=== PATIENT | male | born 1940 | race Caucasian/White ===

== ENCOUNTER 2016-11-14 16:42 | Emergency (ER) | payer MEDICARE, BC ==
[~2016-11-14] VITALS: Ht 188 cm; Wt 129.3 kg
--- NOTE | 2016-11-14 17:00 | NUR ---
PT SEND BY PMD FOR SOB, HYPOXIA. ALERT ORIENTED AMBULATORY. DENIES ANY PAIN. PLACED ON MONITOR. VSS.
--- NOTE | 2016-11-14 17:20 | NUR ---
BLOOD SAMPLE COLLECTED BY LAB
[2016-11-14 17:29] LABS: BASOPHILS # (AUTO) 0.1 /CMM (0.0-0.2); BASOPHILS % (AUTO) 0.7 % (0.0-2.0); EOSINOPHILS # (AUTO) 1.5 /CMM (0.0-0.7); EOSINOPHILS % (AUTO) 14.3 % (0.0-6.0); HEMATOCRIT 43 % (39-51); HEMOGLOBIN 13.8 g/dL (13.5-17.5); LYMPHOCYTES # (AUTO) 2.7 /CMM (0.8-4.8); LYMPHOCYTES % (AUTO) 25.7 % (20.0-44.0); MEAN CORPUSCULAR HEMOGLOBIN 30 PG (26.0-33.0); MEAN CORPUSCULAR HGB CONC 32 g/dl (31.0-36.0); MEAN CORPUSCULAR VOLUME 93 fL (80-96); MONOCYTES # (AUTO) 0.9 /CMM (0.1-1.30); MONOCYTES % (AUTO) 8.2 % (2.0-12.0); NEUTROPHILS # (AUTO) 5.5 /CMM (1.8-8.9); NEUTROPHILS % (AUTO) 51.1 % (43.0-81.0); PLATELET COUNT (AUTO) 241 /CMM (150-450); RDW COEFFICIENT OF VARIATION 13.1 (11.5-15.0); RED BLOOD CELL COUNT(AUTO) 4.64 MIL/uL (4.5-6.0); WHITE BLOOD COUNT (AUTO) 10.7 K/uL (4.3-11.0)
--- NOTE | 2016-11-14 17:30 | NUR ---
RFA #20 IV ACCESS
[2016-11-14 17:35] LABS: CALCIUM, SERUM 8.3 mg/dL (8.5-10.1); CARBON DIOXIDE 31 mmol/L (21-32); CHLORIDE 109 mmol/L (98-107); CREATININE 1.1 mg/dL (0.6-1.3); GLUCOSE 107 mg/dL (74-106); POTASSIUM 4.2 mmol/L (3.5-5.1); SODIUM SERUM 144 mmol/L (136-145); UREA NITROGEN, BLOOD 19 mg/dL (7-18)
[2016-11-14] MEDS ORDERED: methylPREDNISolone SOD SUCC 125 MG/2ML VIAL ONE (17:37)
--- NOTE | 2016-11-14 17:40 | NUR ---
RT AT BEDSIDE GIVEN BREATHING TX
[2016-11-14] MEDS ORDERED: ALBUTEROL FS 2.5 MG/3 ML VIAL.NEB ONE ×2 (17:41→19:26)
[2016-11-14] MEDS ORDERED: IPRATROPIUM NEB FS 0.5 MG/2.5 ML AMPUL.NEB ONE (17:41)
[2016-11-14 17:45] LABS: TROPONIN I < 0.017 ng/mL (0.00-0.056)
[2016-11-14] MEDS: IPRATROPIUM NEB FS 0.5 MG/2.5 ML AMPUL.NEB NEB ONE (17:45)
[2016-11-14] MEDS: ALBUTEROL FS 2.5 MG/3 ML VIAL.NEB CONTNEB ONE ×2 (17:45→19:26)
[2016-11-14] MEDS: methylPREDNISolone SOD SUCC 125 MG/2ML VIAL IV ONE (18:01)
[2016-11-14] MEDS ORDERED: ASPI-991 PO (18:41)
[2016-11-14] MEDS ORDERED: AMLO1CAP9 PO (18:41)
[2016-11-14] MEDS ORDERED: ATOR40TA PO (18:41)
[2016-11-14] MEDS ORDERED: INSU100I19 SQ (18:41)
[2016-11-14] MEDS ORDERED: METO25TA3 PO (18:41)
[2016-11-14] MEDS ORDERED: ALLO100T PO (18:41)
[2016-11-14] MEDS ORDERED: INSU100V11 SQ (18:41)
[2016-11-14] MEDS ORDERED: METF500T4 PO (18:41)
--- NOTE | 2016-11-14 19:11 | NUR ---
GAVE REPORT TO PROCESS PLANT OPERATOR MAE
--- NOTE | 2016-11-14 19:15 | NUR ---
Received patient in bed aaox4, reporting feeling relieved from sob. Breathing even and unlabored. Saturating 91-94% on room air. Encouraged deep breathing exercises. Will continue to monitor.
--- NOTE | 2016-11-14 19:26 | NUR ---
Breathing treatment given by RT.
--- NOTE | 2016-11-14 20:43 | NUR ---
IV removed. Catheter intact and site benign. Pressure and 4x4 applied to site. No bleeding noted. Patient discharged to home in stable condition. Written and verbal after care instructions given. Patient verbalizes understanding of instruction. Patient is ambulatory with steady gait.
[2016-11-14 20:55] VITALS: BP 111/44
== END 2016-11-14 20:43 | disposition home or self-care (01) ==
LOC: ER 16:44
DX: J44.1 Chronic obstructive pulmonary disease with (acute) exacerbation (principal); E11.9 Type 2 diabetes mellitus without complications; E78.5 Hyperlipidemia, unspecified; I25.10 Atherosclerotic heart disease of native coronary artery without angina pectoris; Z88.0 Allergy status to penicillin
CPT/HCPCS: 36415; 71010; 80048; 84484; 85025; 93005; 94640 ×3; 99285; J2930

== ENCOUNTER 2022-05-24 09:46 | Outpatient (CLI) | payer MEDICARE, BC ==
[~2022-05-24 09:46] MED LIST: ALLO100T PO; AMLO-102 PO; ASPI-1420 PO; ATOR40TA PO; INSU100I19 SQ; INSU100V11 SQ; METF-440 PO; METO25TA3 PO
== END 2022-05-24 23:59 | disposition home or self-care (01) ==
LOC: CT 09:46
PROVIDERS: ATTEND Internal Medicine
DX: J98.11 Atelectasis (principal); J90 Pleural effusion, not elsewhere classified; N28.1 Cyst of kidney, acquired; I70.0 Atherosclerosis of aorta; R06.02 Shortness of breath
CPT/HCPCS: 71250-TC

== ENCOUNTER 2022-09-30 01:24 | Inpatient (IN) | payer MEDICARE, BC ==
[~2022-09-30] VITALS: Ht 188 cm; Wt 113.9 kg
[2022-09-30] VITALS (11 sets, daily range): BP systolic 108–125; BP diastolic 40–68
[2022-09-30] MEDS: IV NS 0.9% 1,000 ML IV SCH (03:59)
[2022-09-30] MEDS ORDERED: D5W IV ONE (04:00)
[2022-09-30] MEDS ORDERED: MAGNESIUM HYDROXIDE 30 ML UDC PO PRN (04:00)
[2022-09-30] MEDS ORDERED: VANCOMYCIN IV ONE (04:00)
[2022-09-30] MEDS ORDERED: ACETAMINOPHEN 325 MG TABLET PO PRN (04:00)
[2022-09-30] MEDS ORDERED: ONDANSETRON HCL/PF 4 MG/2 ML VIAL IV PRN (04:00)
[2022-09-30] MEDS ORDERED: PIPERACILLIN /TAZOBACTAM 3.375 G in IV D5W 50 ML IV SCH (04:30)
[2022-09-30] MEDS ORDERED: VANCOMYCIN 1 GM VIAL ONE (04:41)
[2022-09-30 06:16] LABS: BASOPHILS % (AUTO) 0.3 % (0.0-2.0); EOSINOPHILS % (AUTO) 0.1 % (0.0-6.0); HEMATOCRIT 28 % (39-51); HEMOGLOBIN 8.8 g/dL (13.5-17.5); LYMPHOCYTES # (AUTO) 0.8 K/uL (0.8-4.8); LYMPHOCYTES % (AUTO) 6.5 % (20.0-44.0); MEAN CORPUSCULAR HGB CONC 32 g/dl (31.0-36.0); MEAN CORPUSCULAR VOLUME 98 fL (80-96); MONOCYTES # (AUTO) 1.2 K/uL (0.1-1.30); MONOCYTES % (AUTO) 9.4 % (2.0-12.0); NEUTROPHILS # (AUTO) 10.9 K/uL (1.8-8.9); NEUTROPHILS % (AUTO) 83.7 % (43.0-81.0); PLATELET COUNT (AUTO) 641 K/uL (150-450); RED BLOOD CELL COUNT(AUTO) 2.83 MIL/uL (4.5-6.0)
[2022-09-30 06:36] LABS: IRON, SERUM 143 ug/dl (50-175); TOTAL IRON BINDING CAPACITY 176 ug/dl (250-450)
[2022-09-30] MEDS ORDERED: FERR325T24 PO (09:35)
[2022-09-30] MEDS ORDERED: EMPA1TAB9 PO (09:35)
[2022-09-30] MEDS ORDERED: FLUT1BLS13 IH (09:35)
[2022-09-30] MEDS: DOCUSATE SODIUM 100 MG CAPSULE PO SCH ×2 (09:57→21:00)
[2022-09-30] MEDS: methylPREDNISolone SOD SUCC 125 MG/2ML VIAL IV SCH ×3 (10:18→20:22)
[2022-09-30 11:27] LABS: CALCIUM, SERUM 8.9 mg/dL (8.5-10.1); CARBON DIOXIDE 22 mmol/L (21-32); CHLORIDE 94 mmol/L (98-107); CREATININE 2.7 mg/dL (0.6-1.3); GLUCOSE 283 mg/dL (74-106); MAGNESIUM 2.6 mg/dL (1.8-2.4); SODIUM SERUM 127 mmol/L (136-145)
[2022-09-30 11:32] LABS: POTASSIUM 7.1 mmol/L (3.5-5.1)
[2022-09-30 11:33] LABS: PHOSPHORUS 10.9 mg/dL (2.5-4.9); UREA NITROGEN, BLOOD 85 mg/dL (7-18)
[2022-09-30] MEDS ORDERED: SODIUM POLYSTYRENE SULFONATE 15 G/60 ML BOTTLE PO ONE ×2 (12:00→17:30)
[2022-09-30] MEDS ORDERED: DEXTROSE 50%-WATER 50 ML DISP.SYRIN IV PRN (12:00)
[2022-09-30] MEDS ORDERED: SODIUM POLYSTYRENE SULFONATE 15 G/60 ML BOTTLE RC ONE (12:00)
[2022-09-30] MEDS: BREO IH SCH (12:04)
[2022-09-30] MEDS: BLOOD SUGAR DIAGNOSTIC 1 EACH STRIP IN SCH ×3 (12:41→22:17)
[2022-09-30] MEDS: INSULIN REGULAR, HUMAN 100 UNIT/ML 3 ML VIAL SQ PRN ×2 (12:45→22:49)
[2022-09-30] MEDS: CEFTRIAXONE 1 G in IV D5W 50 ML IV SCH (12:50)
[2022-09-30] MEDS ORDERED: FURO-144 PO (16:21)
[2022-09-30] MEDS ORDERED: INSU100V10 SQ (16:21)
[2022-09-30] MEDS ORDERED: PANT40TA49 PO (16:21)
[2022-09-30] MEDS ORDERED: CYAN-51 PO (16:21)
[2022-09-30] MEDS ORDERED: LEVO75TA7 PO (16:21)
[2022-09-30 16:22] LABS: CALCIUM, SERUM 8.7 mg/dL (8.5-10.1); CARBON DIOXIDE 24 mmol/L (21-32); CHLORIDE 96 mmol/L (98-107); CREATININE 3.1 mg/dL (0.6-1.3); GLUCOSE 269 mg/dL (74-106); SODIUM SERUM 129 mmol/L (136-145)
[2022-09-30 16:55] LABS: POTASSIUM 7.5 mmol/L (3.5-5.1); UREA NITROGEN, BLOOD 93 mg/dL (7-18)
[2022-09-30] MEDS: HEPARIN SODIUM, PORCINE 5000 UNITS/1 ML VIAL SQ SCH (17:00)
[2022-09-30] MEDS ORDERED: INSULIN REGULAR, HUMAN 100 UNIT/ML 10 ML VIAL IV ONE (17:30)
[2022-09-30] MEDS ORDERED: DEXTROSE 50%-WATER 50 ML DISP.SYRIN IVP ONE (17:30)
[2022-09-30] MEDS: ALLOPURINOL 100 MG TABLET PO SCH (17:32)
[2022-09-30] MEDS: FERROUS SULFATE (325 MG) 325 MG/TAB TABLET PO SCH (17:32)
[2022-09-30] MEDS: CALCIUM ACETATE 667 MG CAP/TAB PO SCH (18:00)
[2022-09-30] MEDS: ATORVASTATIN 40 MG TABLET PO SCH (21:31)
[2022-09-30] MEDS: EPOETIN ALFA-EPBX 4,000 UNIT/ML VIAL IV SCH (23:50)
[2022-10-01] VITALS (50 sets, daily range): BP systolic 91–128; BP diastolic 45–62
[2022-10-01] MEDS: methylPREDNISolone SOD SUCC 125 MG/2ML VIAL IV SCH ×3 (05:10→21:06)
[2022-10-01] MEDS: BLOOD SUGAR DIAGNOSTIC 1 EACH STRIP IN SCH ×4 (07:45→22:02)
[2022-10-01] MEDS: CALCIUM ACETATE 667 MG CAP/TAB PO SCH ×3 (08:00→17:52)
[2022-10-01] MEDS: ALLOPURINOL 100 MG TABLET PO SCH ×2 (08:05→17:52)
[2022-10-01] MEDS: FERROUS SULFATE (325 MG) 325 MG/TAB TABLET PO SCH ×2 (08:05→17:52)
[2022-10-01] MEDS: METOPROLOL SUCCINATE 25 MG TAB.SR.24H PO SCH (08:05)
[2022-10-01] MEDS: ASPIRIN EC 81 MG TABLET.DR PO SCH (08:05)
[2022-10-01] MEDS: DOCUSATE SODIUM 100 MG CAPSULE PO SCH ×2 (08:05→21:06)
[2022-10-01] MEDS: BREO IH SCH (08:06)
[2022-10-01] MEDS: INSULIN REGULAR, HUMAN 100 UNIT/ML 3 ML VIAL SQ PRN ×3 (08:46→22:04)
[2022-10-01 09:19] LABS: CALCIUM, SERUM 8.4 mg/dL (8.5-10.1); CARBON DIOXIDE 25 mmol/L (21-32); CHLORIDE 96 mmol/L (98-107); CREATININE 3.1 mg/dL (0.6-1.3); GLUCOSE 274 mg/dL (74-106); POTASSIUM 5.8 mmol/L (3.5-5.1); SODIUM SERUM 130 mmol/L (136-145); UREA NITROGEN, BLOOD 63 mg/dL (7-18)
[2022-10-01 09:34] LABS: MAGNESIUM 2.5 mg/dL (1.8-2.4)
[2022-10-01 09:47] LABS: PHOSPHORUS 10.3 mg/dL (2.5-4.9)
[2022-10-01] MEDS: HEPARIN SODIUM, PORCINE 5000 UNITS/1 ML VIAL SQ SCH ×2 (11:00→17:54)
[2022-10-01 11:20] LABS: LYMPHOCYTES % (AUTO) 2.3 % (20.0-44.0); MONOCYTES # (AUTO) 0.6 K/uL (0.1-1.30)
[2022-10-01 11:24] LABS: BASOPHILS # (AUTO) 0.1 K/uL (0.0-0.2); BASOPHILS % (AUTO) 0.4 % (0.0-2.0); HEMATOCRIT 28 % (39-51); HEMOGLOBIN 8.8 g/dL (13.5-17.5); LYMPHOCYTES # (AUTO) 0.5 K/uL (0.8-4.8); MEAN CORPUSCULAR HGB CONC 31 g/dl (31.0-36.0); MEAN CORPUSCULAR VOLUME 99 fL (80-96); MONOCYTES % (AUTO) 2.6 % (2.0-12.0); NEUTROPHILS # (AUTO) 22.2 K/uL (1.8-8.9); NEUTROPHILS % (AUTO) 94.7 % (43.0-81.0); PLATELET COUNT (AUTO) 556 K/uL (150-450); RED BLOOD CELL COUNT(AUTO) 2.87 MIL/uL (4.5-6.0); WHITE BLOOD COUNT (AUTO) 23.4 K/uL (4.3-11.0)
[2022-10-01] MEDS: CEFTRIAXONE 1 G in IV D5W 50 ML IV SCH (11:46)
[2022-10-01 12:00] LABS: IRON, SERUM 53 ug/dl (50-175); TOTAL IRON BINDING CAPACITY 192 ug/dl (250-450)
[2022-10-01] MEDS: IV NS 0.9% 1,000 ML IV SCH (12:13)
[2022-10-01] MEDS ORDERED: GLUCERNA 1.5 1,000 ML BOTTLE NG SCH (15:30)
[2022-10-01 16:23] LABS: MONOCYTES % (MANUAL) 2 % (0-11.0); NEUTROPHILS % (MANUAL) 98 (42-76)
[2022-10-01] MEDS ORDERED: VANCOMYCIN 1 GM in IV D5W 250ml IV SCH (17:00)
[2022-10-01] MEDS: PIPERACILLIN /TAZOBACTAM 3.375 G in IV D5W 50 ML IV SCH ×2 (17:13→21:02)
[2022-10-01] MEDS: ATORVASTATIN 40 MG TABLET PO SCH (21:06)
[2022-10-01] MEDS: VANCOMYCIN POST DIALYSIS 500MG IV PRN ×2 (21:47)
[2022-10-02] VITALS (24 sets, daily range): BP systolic 89–113; BP diastolic 44–67
[2022-10-02 04:53] LABS: HEMATOCRIT 23 % (39-51); HEMOGLOBIN 7.2 g/dL (13.5-17.5); LYMPHOCYTES # (AUTO) 0.3 K/uL (0.8-4.8); LYMPHOCYTES % (AUTO) 1.5 % (20.0-44.0); MEAN CORPUSCULAR HGB CONC 32 g/dl (31.0-36.0); MEAN CORPUSCULAR VOLUME 96 fL (80-96); MONOCYTES # (AUTO) 0.7 K/uL (0.1-1.30); MONOCYTES % (AUTO) 3.3 % (2.0-12.0); NEUTROPHILS % (AUTO) 95.2 % (43.0-81.0); PLATELET COUNT (AUTO) 460 K/uL (150-450); WHITE BLOOD COUNT (AUTO) 19.9 K/uL (4.3-11.0)
[2022-10-02] MEDS: IV NS 0.9% 1,000 ML IV SCH (05:07)
[2022-10-02] MEDS: PIPERACILLIN /TAZOBACTAM 3.375 G in IV D5W 50 ML IV SCH ×3 (05:07→21:02)
[2022-10-02] MEDS: methylPREDNISolone SOD SUCC 125 MG/2ML VIAL IV SCH ×3 (05:07→17:20)
[2022-10-02 05:16] LABS: CALCIUM, SERUM 7.7 mg/dL (8.5-10.1); CARBON DIOXIDE 30 mmol/L (21-32); CHLORIDE 97 mmol/L (98-107); CREATININE 3.4 mg/dL (0.6-1.3); GLUCOSE 269 mg/dL (74-106); MAGNESIUM 2.3 mg/dL (1.8-2.4); POTASSIUM 4.7 mmol/L (3.5-5.1); SODIUM SERUM 133 mmol/L (136-145); UREA NITROGEN, BLOOD 58 mg/dL (7-18)
[2022-10-02 05:17] LABS: PHOSPHORUS 8.7 mg/dL (2.5-4.9)
[2022-10-02] MEDS: CALCIUM ACETATE 667 MG CAP/TAB PO SCH ×4 (08:00→17:19)
[2022-10-02] MEDS: METOPROLOL SUCCINATE 25 MG TAB.SR.24H PO SCH (08:10)
[2022-10-02] MEDS: BREO IH SCH (08:11)
[2022-10-02] MEDS: FERROUS SULFATE (325 MG) 325 MG/TAB TABLET PO SCH ×2 (08:11→17:19)
[2022-10-02] MEDS: DOCUSATE SODIUM 100 MG CAPSULE PO SCH ×2 (08:11→20:57)
[2022-10-02] MEDS: ALLOPURINOL 100 MG TABLET PO SCH ×2 (08:11→17:19)
[2022-10-02] MEDS: ASPIRIN EC 81 MG TABLET.DR PO SCH (08:12)
[2022-10-02] MEDS: HEPARIN SODIUM, PORCINE 5000 UNITS/1 ML VIAL SQ SCH ×2 (08:12→16:59)
[2022-10-02] MEDS: BLOOD SUGAR DIAGNOSTIC 1 EACH STRIP IN SCH ×3 (11:28→23:46)
[2022-10-02] MEDS: INSULIN REGULAR, HUMAN 100 UNIT/ML 3 ML VIAL SQ PRN ×3 (11:37→23:48)
[2022-10-02 16:17] LABS: LYMPHOCYTES % (MANUAL) 3 % (16-48); MONOCYTES % (MANUAL) 2 % (0-11.0); NEUTROPHILS % (MANUAL) 95 (42-76)
[2022-10-02] MEDS: EPOETIN ALFA-EPBX 4,000 UNIT/ML VIAL IV SCH (17:41)
[2022-10-02] MEDS ORDERED: EPOETIN ALFA-EPBX 4,000 UNIT/ML VIAL SQ ONE (18:00)
[2022-10-02] MEDS: FOLIC ACID 1 MG TABLET GT SCH (20:57)
[2022-10-02] MEDS: CYANOCOBALAMIN 500 MCG TABLET GT SCH (20:57)
[2022-10-02] MEDS: THIAMINE HCL 100 MG TABLET GT SCH (20:57)
[2022-10-02] MEDS: ATORVASTATIN 40 MG TABLET PO SCH (21:15)
[2022-10-03] VITALS (25 sets, daily range): BP systolic 90–134; BP diastolic 42–85
[2022-10-03] MEDS: IV NS 0.9% 1,000 ML IV SCH (03:55)
[2022-10-03 04:14] LABS: LYMPHOCYTES # (AUTO) 0.5 K/uL (0.8-4.8); LYMPHOCYTES % (AUTO) 2.8 % (20.0-44.0); MEAN CORPUSCULAR HGB CONC 32 g/dl (31.0-36.0); MEAN CORPUSCULAR VOLUME 95 fL (80-96); MONOCYTES # (AUTO) 0.8 K/uL (0.1-1.30); MONOCYTES % (AUTO) 4.7 % (2.0-12.0); NEUTROPHILS % (AUTO) 92.5 % (43.0-81.0); PLATELET COUNT (AUTO) 382 K/uL (150-450); RED BLOOD CELL COUNT(AUTO) 2.11 MIL/uL (4.5-6.0); WHITE BLOOD COUNT (AUTO) 16.3 K/uL (4.3-11.0)
[2022-10-03 04:24] LABS: HEMOGLOBIN 6.3 g/dL (13.5-17.5)
[2022-10-03 04:26] LABS: HEMATOCRIT 20 % (39-51)
[2022-10-03 04:37] LABS: CALCIUM, SERUM 7.3 mg/dL (8.5-10.1); CARBON DIOXIDE 27 mmol/L (21-32); CHLORIDE 98 mmol/L (98-107); CREATININE 5.2 mg/dL (0.6-1.3); GLUCOSE 291 mg/dL (74-106); MAGNESIUM 2.4 mg/dL (1.8-2.4); POTASSIUM 3.9 mmol/L (3.5-5.1); SODIUM SERUM 136 mmol/L (136-145)
[2022-10-03 04:43] LABS: PHOSPHORUS 8.1 mg/dL (2.5-4.9); UREA NITROGEN, BLOOD 94 mg/dL (7-18)
[2022-10-03] MEDS: PIPERACILLIN /TAZOBACTAM 3.375 G in IV D5W 50 ML IV SCH ×3 (04:46→21:02)
[2022-10-03 04:50] LABS: SERUM AMMONIA 28 umol/L (11-32)
[2022-10-03] MEDS: BLOOD SUGAR DIAGNOSTIC 1 EACH STRIP IN SCH ×4 (06:04→23:56)
[2022-10-03] MEDS: INSULIN REGULAR, HUMAN 100 UNIT/ML 3 ML VIAL SQ PRN ×4 (06:06→23:57)
[2022-10-03] MEDS: CALCIUM ACETATE 667 MG CAP/TAB PO SCH ×6 (07:25→17:13)
[2022-10-03] MEDS: ASPIRIN EC 81 MG TABLET.DR PO SCH (08:41)
[2022-10-03] MEDS: HEPARIN SODIUM, PORCINE 5000 UNITS/1 ML VIAL SQ SCH ×2 (08:41→21:05)
[2022-10-03] MEDS: METOPROLOL SUCCINATE 25 MG TAB.SR.24H PO SCH (08:41)
[2022-10-03] MEDS: DOCUSATE SODIUM 100 MG CAPSULE PO SCH ×2 (08:41→21:00)
[2022-10-03] MEDS: FOLIC ACID 1 MG TABLET GT SCH ×2 (08:48→17:13)
[2022-10-03] MEDS: THIAMINE HCL 100 MG TABLET GT SCH ×2 (08:48→17:12)
[2022-10-03] MEDS: methylPREDNISolone SOD SUCC 125 MG/2ML VIAL IV SCH ×2 (08:48→17:12)
[2022-10-03] MEDS: ALLOPURINOL 100 MG TABLET PO SCH ×2 (08:49→17:13)
[2022-10-03] MEDS: BREO IH SCH (08:53)
[2022-10-03] MEDS: CYANOCOBALAMIN 500 MCG TABLET GT SCH ×2 (08:55→17:12)
[2022-10-03] MEDS: SOD FERRIC GLUC 125 MG in IV NS 0.9% 100 ML IV SCH (14:25)
[2022-10-03 15:59] LABS: LYMPHOCYTES % (MANUAL) 2 % (16-48); MONOCYTES % (MANUAL) 1 % (0-11.0); NEUTROPHILS % (MANUAL) 97 (42-76)
[2022-10-03 16:22] LABS: OCCULT BLOOD STOOL NEGATIVE (NEGATIVE)
[2022-10-03] MEDS: VANCOMYCIN POST DIALYSIS 500MG IV PRN ×2 (20:00)
[2022-10-03] MEDS: IV NS 0.9% 250 ML IV PRN (20:09)
[2022-10-03] MEDS: ATORVASTATIN 40 MG TABLET PO SCH (21:17)
[2022-10-04] VITALS (33 sets, daily range): BP systolic 97–151; BP diastolic 43–80
[2022-10-04] MEDS: IV NS 0.9% 1,000 ML IV SCH (04:03)
[2022-10-04 04:47] LABS: BASOPHILS % (AUTO) 0.2 % (0.0-2.0); EOSINOPHILS % (AUTO) 0.6 % (0.0-6.0); LYMPHOCYTES # (AUTO) 0.6 K/uL (0.8-4.8); MEAN CORPUSCULAR HGB CONC 32 g/dl (31.0-36.0); MEAN CORPUSCULAR VOLUME 93 fL (80-96); MONOCYTES # (AUTO) 0.8 K/uL (0.1-1.30); MONOCYTES % (AUTO) 5.2 % (2.0-12.0); NEUTROPHILS # (AUTO) 13.8 K/uL (1.8-8.9); PLATELET COUNT (AUTO) 357 K/uL (150-450); RED BLOOD CELL COUNT(AUTO) 2.15 MIL/uL (4.5-6.0); WHITE BLOOD COUNT (AUTO) 15.3 K/uL (4.3-11.0)
[2022-10-04 05:05] LABS: SERUM AMMONIA 20 umol/L (11-32)
[2022-10-04 05:09] LABS: CALCIUM, SERUM 7.9 mg/dL (8.5-10.1); CARBON DIOXIDE 28 mmol/L (21-32); CHLORIDE 98 mmol/L (98-107); CREATININE 4.7 mg/dL (0.6-1.3); MAGNESIUM 2.4 mg/dL (1.8-2.4); PHOSPHORUS 6.1 mg/dL (2.5-4.9); POTASSIUM 4.2 mmol/L (3.5-5.1); SODIUM SERUM 137 mmol/L (136-145)
[2022-10-04 05:28] LABS: HEMATOCRIT 20 % (39-51); HEMOGLOBIN 6.5 g/dL (13.5-17.5)
[2022-10-04 05:29] LABS: GLUCOSE 379 mg/dL (74-106); UREA NITROGEN, BLOOD 84 mg/dL (7-18)
[2022-10-04] MEDS: PIPERACILLIN /TAZOBACTAM 3.375 G in IV D5W 50 ML IV SCH ×2 (05:37→12:58)
[2022-10-04] MEDS: BLOOD SUGAR DIAGNOSTIC 1 EACH STRIP IN SCH ×3 (05:38→18:39)
[2022-10-04] MEDS: INSULIN REGULAR, HUMAN 100 UNIT/ML 3 ML VIAL SQ PRN ×3 (05:39→18:41)
[2022-10-04] MEDS: DOCUSATE SODIUM 100 MG CAPSULE PO SCH ×2 (08:56→20:28)
[2022-10-04] MEDS: METOPROLOL SUCCINATE 25 MG TAB.SR.24H PO SCH (08:56)
[2022-10-04] MEDS: methylPREDNISolone SOD SUCC 125 MG/2ML VIAL IV SCH ×2 (09:01→16:16)
[2022-10-04] MEDS: HEPARIN SODIUM, PORCINE 5000 UNITS/1 ML VIAL SQ SCH ×2 (09:01→21:33)
[2022-10-04] MEDS: THIAMINE HCL 100 MG TABLET GT SCH ×2 (09:02→16:15)
[2022-10-04] MEDS: ASPIRIN EC 81 MG TABLET.DR PO SCH (09:02)
[2022-10-04] MEDS: CYANOCOBALAMIN 500 MCG TABLET GT SCH ×2 (09:02→16:15)
[2022-10-04] MEDS: CALCIUM ACETATE 667 MG CAP/TAB PO SCH (09:02)
[2022-10-04] MEDS: ALLOPURINOL 100 MG TABLET PO SCH ×2 (09:02→16:15)
[2022-10-04] MEDS: FOLIC ACID 1 MG TABLET GT SCH ×2 (09:02→16:15)
[2022-10-04] MEDS: BREO IH SCH (09:03)
[2022-10-04] MEDS: NEPRO 1,000 ML BOTTLE NG PRN (12:15)
[2022-10-04 12:44] LABS: BAND % (MANUAL) 1 % (0.0-5.0); LYMPHOCYTES % (MANUAL) 6 % (16-48); MONOCYTES % (MANUAL) 3 % (0-11.0); NEUTROPHILS % (MANUAL) 90 (42-76)
[2022-10-04 14:30] LABS: BASOPHILS % (AUTO) 0.2 % (0.0-2.0); EOSINOPHILS % (AUTO) 0.1 % (0.0-6.0); HEMATOCRIT 28 % (39-51); HEMOGLOBIN 9.1 g/dL (13.5-17.5); LYMPHOCYTES # (AUTO) 0.4 K/uL (0.8-4.8); LYMPHOCYTES % (AUTO) 2.1 % (20.0-44.0); MEAN CORPUSCULAR HGB CONC 32 g/dl (31.0-36.0); MEAN CORPUSCULAR VOLUME 90 fL (80-96); MONOCYTES # (AUTO) 0.5 K/uL (0.1-1.30); MONOCYTES % (AUTO) 3.1 % (2.0-12.0); NEUTROPHILS # (AUTO) 15.9 K/uL (1.8-8.9); NEUTROPHILS % (AUTO) 94.5 % (43.0-81.0); PLATELET COUNT (AUTO) 367 K/uL (150-450); WHITE BLOOD COUNT (AUTO) 16.8 K/uL (4.3-11.0)
[2022-10-04] MEDS: SOD FERRIC GLUC 125 MG in IV NS 0.9% 100 ML IV SCH (14:39)
[2022-10-04] MEDS: EPOETIN ALFA-EPBX 4,000 UNIT/ML VIAL IV SCH (18:43)
[2022-10-04] MEDS: VANCOMYCIN POST DIALYSIS 500MG IV PRN ×2 (18:50)
[2022-10-04 19:35] LABS: BAND % (MANUAL) 1 % (0.0-5.0); LYMPHOCYTES % (MANUAL) 5 % (16-48); NEUTROPHILS % (MANUAL) 94 (42-76)
[2022-10-04] MEDS: PIPERACILLIN /TAZOBACTAM 2.25 G in IV D5W 50 ML IV SCH (20:27)
[2022-10-04] MEDS: ATORVASTATIN 40 MG TABLET PO SCH (21:13)
[2022-10-05] VITALS (30 sets, daily range): BP systolic 105–141; BP diastolic 50–79
[2022-10-05] MEDS: BLOOD SUGAR DIAGNOSTIC 1 EACH STRIP IN SCH ×5 (00:13→23:29)
[2022-10-05] MEDS: INSULIN REGULAR, HUMAN 100 UNIT/ML 3 ML VIAL SQ PRN ×5 (00:14→23:32)
[2022-10-05] MEDS: IV NS 0.9% 1,000 ML IV SCH (04:05)
[2022-10-05] MEDS: PIPERACILLIN /TAZOBACTAM 2.25 G in IV D5W 50 ML IV SCH ×3 (04:11→21:50)
[2022-10-05 04:53] LABS: BASOPHILS % (AUTO) 0.3 % (0.0-2.0); EOSINOPHILS % (AUTO) 0.1 % (0.0-6.0); HEMATOCRIT 26 % (39-51); HEMOGLOBIN 8.1 g/dL (13.5-17.5); LYMPHOCYTES # (AUTO) 0.6 K/uL (0.8-4.8); LYMPHOCYTES % (AUTO) 3.9 % (20.0-44.0); MEAN CORPUSCULAR HGB CONC 32 g/dl (31.0-36.0); MEAN CORPUSCULAR VOLUME 92 fL (80-96); MONOCYTES # (AUTO) 0.8 K/uL (0.1-1.30); MONOCYTES % (AUTO) 5.3 % (2.0-12.0); NEUTROPHILS # (AUTO) 14.3 K/uL (1.8-8.9); NEUTROPHILS % (AUTO) 90.4 % (43.0-81.0); PLATELET COUNT (AUTO) 312 K/uL (150-450); RED BLOOD CELL COUNT(AUTO) 2.79 MIL/uL (4.5-6.0); WHITE BLOOD COUNT (AUTO) 15.8 K/uL (4.3-11.0)
[2022-10-05 05:17] LABS: ALANINE AMINOTRANSFERASE 14 U/L (12-78); ALKALINE PHOSPHATASE 121 U/L (46-116); ASPARTATE AMINOTRANSFERASE 18 U/L (15-37); BILIRUBIN,TOTAL 0.7 mg/dL (0.2-1.0); CALCIUM, SERUM 7.2 mg/dL (8.5-10.1); CARBON DIOXIDE 23 mmol/L (21-32); CHLORIDE 107 mmol/L (98-107); CREATININE 3.3 mg/dL (0.6-1.3); MAGNESIUM 2.1 mg/dL (1.8-2.4); PHOSPHORUS 5.5 mg/dL (2.5-4.9); POTASSIUM 3.8 mmol/L (3.5-5.1); SODIUM SERUM 139 mmol/L (136-145); TOTAL PROTEIN, SERUM 4.9 g/dL (6.4-8.2); UREA NITROGEN, BLOOD 60 mg/dL (7-18)
[2022-10-05 05:33] LABS: GLUCOSE 356 mg/dL (74-106)
[2022-10-05] MEDS: NEPRO 1,000 ML BOTTLE NG PRN (07:22)
[2022-10-05] MEDS: DOCUSATE SODIUM 100 MG CAPSULE PO SCH ×2 (08:11→21:00)
[2022-10-05] MEDS: METOPROLOL SUCCINATE 25 MG TAB.SR.24H PO SCH (08:11)
[2022-10-05] MEDS: methylPREDNISolone SOD SUCC 125 MG/2ML VIAL IV SCH ×2 (09:58→16:19)
[2022-10-05] MEDS: BREO IH SCH (09:58)
[2022-10-05] MEDS: HEPARIN SODIUM, PORCINE 5000 UNITS/1 ML VIAL SQ SCH ×2 (09:59→21:55)
[2022-10-05] MEDS: FOLIC ACID 1 MG TABLET GT SCH ×2 (10:00→16:19)
[2022-10-05] MEDS: ASPIRIN EC 81 MG TABLET.DR PO SCH (10:00)
[2022-10-05] MEDS: ALLOPURINOL 100 MG TABLET PO SCH ×2 (10:00→16:19)
[2022-10-05] MEDS: THIAMINE HCL 100 MG TABLET GT SCH ×2 (10:00→16:19)
[2022-10-05] MEDS: CYANOCOBALAMIN 500 MCG TABLET GT SCH ×2 (10:01→16:25)
[2022-10-05] MEDS ORDERED: EPOETIN ALFA (10,000 UNIT) 10,000 UNIT/ML VIAL IV ONE ×2 (13:00→16:00)
[2022-10-05] MEDS: SOD FERRIC GLUC 125 MG in IV NS 0.9% 100 ML IV SCH (14:11)
[2022-10-05] MEDS: VANCOMYCIN POST DIALYSIS 500MG IV PRN ×2 (16:30)
[2022-10-05] MEDS ORDERED: ATORVASTATIN 40 MG TABLET ONE (21:49)
[2022-10-05] MEDS: ATORVASTATIN 40 MG TABLET PO SCH (21:50)
[2022-10-06] VITALS (24 sets, daily range): BP systolic 100–128; BP diastolic 46–64
[2022-10-06] MEDS: IV NS 0.9% 1,000 ML IV PRN (01:48)
[2022-10-06] MEDS: NEPRO 1,000 ML BOTTLE NG PRN (03:14)
[2022-10-06 05:03] LABS: BASOPHILS # (AUTO) 0.1 K/uL (0.0-0.2); BASOPHILS % (AUTO) 0.4 % (0.0-2.0); HEMATOCRIT 33 % (39-51); HEMOGLOBIN 10.4 g/dL (13.5-17.5); LYMPHOCYTES # (AUTO) 0.6 K/uL (0.8-4.8); LYMPHOCYTES % (AUTO) 3.2 % (20.0-44.0); MEAN CORPUSCULAR HGB CONC 32 g/dl (31.0-36.0); MEAN CORPUSCULAR VOLUME 93 fL (80-96); MONOCYTES # (AUTO) 0.6 K/uL (0.1-1.30); MONOCYTES % (AUTO) 3.4 % (2.0-12.0); NEUTROPHILS # (AUTO) 16.7 K/uL (1.8-8.9); PLATELET COUNT (AUTO) 270 K/uL (150-450); RED BLOOD CELL COUNT(AUTO) 3.53 MIL/uL (4.5-6.0); WHITE BLOOD COUNT (AUTO) 17.9 K/uL (4.3-11.0)
[2022-10-06] MEDS: PIPERACILLIN /TAZOBACTAM 2.25 G in IV D5W 50 ML IV SCH ×3 (05:12→21:44)
[2022-10-06 05:31] LABS: CALCIUM, SERUM 8.6 mg/dL (8.5-10.1); CARBON DIOXIDE 28 mmol/L (21-32); CHLORIDE 101 mmol/L (98-107); CREATININE 3.9 mg/dL (0.6-1.3); MAGNESIUM 2.5 mg/dL (1.8-2.4); PHOSPHORUS 7.1 mg/dL (2.5-4.9); POTASSIUM 4.5 mmol/L (3.5-5.1); SODIUM SERUM 135 mmol/L (136-145); UREA NITROGEN, BLOOD 74 mg/dL (7-18)
[2022-10-06 05:41] LABS: GLUCOSE 408 mg/dL (74-106)
[2022-10-06] MEDS ORDERED: DEXTROSE 50%-WATER 50 ML DISP.SYRIN IV PRN ×2 (06:00→11:00)
[2022-10-06] MEDS ORDERED: BLOOD SUGAR DIAGNOSTIC 1 EACH STRIP IN SCH (06:00)
[2022-10-06] MEDS ORDERED: INSULIN REGULAR, HUMAN 100 UNIT/ML 3 ML VIAL SQ PRN (06:00)
[2022-10-06 06:05] LABS: BASOPHILS % (MANUAL) 0 % (0.0-2.0); EOSINOPHILS % (MANUAL) 0 % (0-4); LYMPHOCYTES % (MANUAL) 9 % (16-48); MONOCYTES % (MANUAL) 8 % (0-11.0); NEUTROPHILS % (MANUAL) 83 (42-76)
[2022-10-06] MEDS: ASPIRIN EC 81 MG TABLET.DR PO SCH (08:10)
[2022-10-06] MEDS: methylPREDNISolone SOD SUCC 125 MG/2ML VIAL IV SCH ×2 (08:10→17:22)
[2022-10-06] MEDS: FOLIC ACID 1 MG TABLET GT SCH ×2 (08:10→17:22)
[2022-10-06] MEDS: ALLOPURINOL 100 MG TABLET PO SCH ×2 (08:10→17:22)
[2022-10-06] MEDS: THIAMINE HCL 100 MG TABLET GT SCH ×2 (08:10→17:22)
[2022-10-06] MEDS: CYANOCOBALAMIN 500 MCG TABLET GT SCH ×2 (08:10→17:22)
[2022-10-06] MEDS: DOCUSATE SODIUM 100 MG CAPSULE PO SCH ×2 (08:11→21:02)
[2022-10-06] MEDS: METOPROLOL SUCCINATE 25 MG TAB.SR.24H PO SCH (08:11)
[2022-10-06] MEDS: BREO IH SCH (08:13)
[2022-10-06] MEDS: HEPARIN SODIUM, PORCINE 5000 UNITS/1 ML VIAL SQ SCH ×2 (08:16→21:00)
[2022-10-06] MEDS: BLOOD SUGAR DIAGNOSTIC 1 EACH STRIP IN SCH ×2 (11:20→17:35)
[2022-10-06] MEDS: INSULIN REGULAR, HUMAN 100 UNIT/ML 3 ML VIAL SQ PRN ×2 (11:23→17:29)
[2022-10-06] MEDS: VANCOMYCIN POST DIALYSIS 500MG IV PRN ×2 (11:43)
[2022-10-06] MEDS: FLUCONAZOLE IN NS 100 MG in PREMIX 1 EA IV SCH ×2 (14:41)
[2022-10-06] MEDS: SOD FERRIC GLUC 125 MG in IV NS 0.9% 100 ML IV SCH (14:42)
[2022-10-06 20:46] LABS: BASOPHILS # (AUTO) 0.1 K/uL (0.0-0.2); BASOPHILS % (AUTO) 0.3 % (0.0-2.0); EOSINOPHILS % (AUTO) 0.1 % (0.0-6.0); HEMATOCRIT 31 % (39-51); HEMOGLOBIN 9.7 g/dL (13.5-17.5); LYMPHOCYTES # (AUTO) 0.5 K/uL (0.8-4.8); LYMPHOCYTES % (AUTO) 3.1 % (20.0-44.0); MEAN CORPUSCULAR HGB CONC 32 g/dl (31.0-36.0); MEAN CORPUSCULAR VOLUME 93 fL (80-96); MONOCYTES # (AUTO) 0.5 K/uL (0.1-1.30); MONOCYTES % (AUTO) 2.8 % (2.0-12.0); NEUTROPHILS # (AUTO) 15.3 K/uL (1.8-8.9); NEUTROPHILS % (AUTO) 93.7 % (43.0-81.0); PLATELET COUNT (AUTO) 243 K/uL (150-450); RED BLOOD CELL COUNT(AUTO) 3.27 MIL/uL (4.5-6.0); WHITE BLOOD COUNT (AUTO) 16.4 K/uL (4.3-11.0)
[2022-10-06] MEDS: ATORVASTATIN 40 MG TABLET PO SCH (21:02)
[2022-10-06] MEDS ORDERED: PIPERACILLIN /TAZOBACTAM 2.25 G VIAL IV ONE (21:29)
[2022-10-06 21:33] LABS: LYMPHOCYTES % (MANUAL) 9 % (16-48); MONOCYTES % (MANUAL) 2 % (0-11.0); NEUTROPHILS % (MANUAL) 89 (42-76)
[2022-10-07] VITALS (32 sets, daily range): BP systolic 88–118; BP diastolic 37–71
[2022-10-07] MEDS: INSULIN REGULAR, HUMAN 100 UNIT/ML 3 ML VIAL SQ PRN ×4 (00:01→17:28)
[2022-10-07] MEDS: BLOOD SUGAR DIAGNOSTIC 1 EACH STRIP IN SCH ×4 (00:04→17:18)
[2022-10-07] MEDS: IV NS 0.9% 1,000 ML IV PRN (00:18)
[2022-10-07] MEDS: IV NS 0.9% 250 ML IV PRN (00:18)
[2022-10-07] MEDS: NEPRO 1,000 ML BOTTLE NG PRN (00:37)
[2022-10-07] MEDS: PIPERACILLIN /TAZOBACTAM 2.25 G in IV D5W 50 ML IV SCH ×3 (04:26→21:44)
[2022-10-07 04:44] LABS: CALCIUM, SERUM 8.4 mg/dL (8.5-10.1); CARBON DIOXIDE 28 mmol/L (21-32); CHLORIDE 102 mmol/L (98-107); CREATININE 3.6 mg/dL (0.6-1.3); SODIUM SERUM 135 mmol/L (136-145)
[2022-10-07 04:55] LABS: GLUCOSE 419 mg/dL (74-106)
[2022-10-07 04:56] LABS: UREA NITROGEN, BLOOD 105 mg/dL (7-18)
[2022-10-07] MEDS ORDERED: Z GUARD REMEDY 4 OZ OINT TP PRN (08:00)
[2022-10-07] MEDS: ALLOPURINOL 100 MG TABLET PO SCH ×2 (08:08→16:55)
[2022-10-07] MEDS: CYANOCOBALAMIN 500 MCG TABLET GT SCH ×2 (08:08→16:55)
[2022-10-07] MEDS: THIAMINE HCL 100 MG TABLET GT SCH ×2 (08:08→16:55)
[2022-10-07] MEDS: ASPIRIN EC 81 MG TABLET.DR PO SCH (08:08)
[2022-10-07] MEDS: FOLIC ACID 1 MG TABLET GT SCH ×2 (08:08→16:56)
[2022-10-07] MEDS: DOCUSATE SODIUM 100 MG CAPSULE PO SCH ×2 (08:09→21:00)
[2022-10-07] MEDS: METOPROLOL SUCCINATE 25 MG TAB.SR.24H PO SCH (08:09)
[2022-10-07] MEDS: HEPARIN SODIUM, PORCINE 5000 UNITS/1 ML VIAL SQ SCH ×2 (08:10→21:00)
[2022-10-07] MEDS: methylPREDNISolone SOD SUCC 125 MG/2ML VIAL IV SCH ×2 (08:30→10:23)
[2022-10-07] MEDS: BREO IH SCH (08:30)
[2022-10-07 12:20] LABS: BASOPHILS # (AUTO) 0.1 K/uL (0.0-0.2); BASOPHILS % (AUTO) 0.5 % (0.0-2.0); EOSINOPHILS % (AUTO) 0.5 % (0.0-6.0); HEMATOCRIT 23 % (39-51); HEMOGLOBIN 7.2 g/dL (13.5-17.5); LYMPHOCYTES # (AUTO) 1.1 K/uL (0.8-4.8); LYMPHOCYTES % (AUTO) 7.2 % (20.0-44.0); MEAN CORPUSCULAR HGB CONC 32 g/dl (31.0-36.0); MEAN CORPUSCULAR VOLUME 94 fL (80-96); MONOCYTES # (AUTO) 1.1 K/uL (0.1-1.30); MONOCYTES % (AUTO) 7.4 % (2.0-12.0); NEUTROPHILS # (AUTO) 12.4 K/uL (1.8-8.9); NEUTROPHILS % (AUTO) 84.4 % (43.0-81.0); PLATELET COUNT (AUTO) 201 K/uL (150-450); WHITE BLOOD COUNT (AUTO) 14.8 K/uL (4.3-11.0)
[2022-10-07 12:39] LABS: MAGNESIUM 2.1 mg/dL (1.8-2.4); PHOSPHORUS 2.5 mg/dL (2.5-4.9)
[2022-10-07] MEDS: FLUCONAZOLE IN NS 100 MG in PREMIX 1 EA IV SCH ×4 (13:00→14:50)
[2022-10-07 13:12] LABS: BAND % (MANUAL) 4 % (0.0-5.0); LYMPHOCYTES % (MANUAL) 14 % (16-48); METAMYELOCYTES % 1 % (0-0); MONOCYTES % (MANUAL) 6 % (0-11.0); MYELOCYTES % 1 % (0-0); NEUTROPHILS % (MANUAL) 74 (42-76)
[2022-10-07] MEDS: SOD FERRIC GLUC 125 MG in IV NS 0.9% 100 ML IV SCH (14:48)
[2022-10-07] MEDS: EPOETIN ALFA-EPBX 4,000 UNIT/ML VIAL IV SCH (17:18)
[2022-10-07] MEDS: ATORVASTATIN 40 MG TABLET PO SCH (23:06)
[2022-10-08] VITALS (31 sets, daily range): BP systolic 90–123; BP diastolic 35–73
[2022-10-08] MEDS: INSULIN REGULAR, HUMAN 100 UNIT/ML 3 ML VIAL SQ PRN ×5 (00:26→23:58)
[2022-10-08] MEDS: BLOOD SUGAR DIAGNOSTIC 1 EACH STRIP IN SCH ×5 (00:26→23:59)
[2022-10-08] MEDS: NEPRO 1,000 ML BOTTLE NG PRN (00:30)
[2022-10-08] MEDS: IV NS 0.9% 1,000 ML IV PRN (00:39)
[2022-10-08 04:21] LABS: EOSINOPHILS % (AUTO) 0.7 % (0.0-6.0); HEMATOCRIT 22 % (39-51); HEMOGLOBIN 7.1 g/dL (13.5-17.5); LYMPHOCYTES # (AUTO) 1.3 K/uL (0.8-4.8); LYMPHOCYTES % (AUTO) 7.2 % (20.0-44.0); MEAN CORPUSCULAR HGB CONC 32 g/dl (31.0-36.0); MEAN CORPUSCULAR VOLUME 95 fL (80-96); MONOCYTES # (AUTO) 0.9 K/uL (0.1-1.30); MONOCYTES % (AUTO) 4.9 % (2.0-12.0); NEUTROPHILS # (AUTO) 15.8 K/uL (1.8-8.9); NEUTROPHILS % (AUTO) 87.2 % (43.0-81.0); PLATELET COUNT (AUTO) 214 K/uL (150-450); RED BLOOD CELL COUNT(AUTO) 2.33 MIL/uL (4.5-6.0); WHITE BLOOD COUNT (AUTO) 18.1 K/uL (4.3-11.0)
[2022-10-08 04:36] LABS: CALCIUM, SERUM 8.6 mg/dL (8.5-10.1); CARBON DIOXIDE 29 mmol/L (21-32); CHLORIDE 103 mmol/L (98-107); CREATININE 3.3 mg/dL (0.6-1.3); GLUCOSE 213 mg/dL (74-106); MAGNESIUM 2.1 mg/dL (1.8-2.4); PHOSPHORUS 4.7 mg/dL (2.5-4.9); POTASSIUM 3.4 mmol/L (3.5-5.1); SODIUM SERUM 139 mmol/L (136-145)
[2022-10-08 04:42] LABS: UREA NITROGEN, BLOOD 93 mg/dL (7-18)
[2022-10-08] MEDS: PIPERACILLIN /TAZOBACTAM 2.25 G in IV D5W 50 ML IV SCH ×3 (04:49→21:38)
[2022-10-08] MEDS: DOCUSATE SODIUM 100 MG CAPSULE PO SCH ×2 (08:03→21:00)
[2022-10-08] MEDS: ALLOPURINOL 100 MG TABLET PO SCH ×2 (08:21→17:30)
[2022-10-08] MEDS: CYANOCOBALAMIN 500 MCG TABLET GT SCH ×2 (08:21→17:30)
[2022-10-08] MEDS: ASPIRIN EC 81 MG TABLET.DR PO SCH (08:21)
[2022-10-08] MEDS: FOLIC ACID 1 MG TABLET GT SCH ×2 (08:21→17:30)
[2022-10-08] MEDS: METOPROLOL SUCCINATE 25 MG TAB.SR.24H PO SCH (08:22)
[2022-10-08] MEDS: HEPARIN SODIUM, PORCINE 5000 UNITS/1 ML VIAL SQ SCH ×2 (08:23→21:00)
[2022-10-08] MEDS: THIAMINE HCL 100 MG TABLET GT SCH ×2 (08:23→17:30)
[2022-10-08] MEDS: methylPREDNISolone SOD SUCC 125 MG/2ML VIAL IV SCH (08:24)
[2022-10-08] MEDS: BREO IH SCH (08:55)
[2022-10-08] MEDS: FLUCONAZOLE IN NS 100 MG in PREMIX 1 EA IV SCH ×2 (14:13)
[2022-10-08] MEDS: IV NS 0.9% 250 ML IV PRN (15:15)
[2022-10-08] MEDS: SOD FERRIC GLUC 125 MG in IV NS 0.9% 100 ML IV SCH (15:55)
[2022-10-08] MEDS: PROSOURCE / PROSTAT (PYXIS) 30 ML UDC GT SCH (17:31)
[2022-10-08] MEDS: ALBUMIN 25% 25 GM in PREMIX 1 EA IV PRN (20:51)
[2022-10-08] MEDS: VANCOMYCIN POST DIALYSIS 500MG IV PRN ×2 (22:14)
[2022-10-08] MEDS: ATORVASTATIN 40 MG TABLET PO SCH (22:22)
[2022-10-08 23:35] LABS: BAND % (MANUAL) 3 % (0.0-5.0); LYMPHOCYTES % (MANUAL) 9 % (16-48); NEUTROPHILS % (MANUAL) 82 (42-76)
[2022-10-08 23:36] LABS: BASOPHILS % (MANUAL) 0 % (0.0-2.0); EOSINOPHILS % (MANUAL) 0 % (0-4); MONOCYTES % (MANUAL) 6 % (0-11.0)
[2022-10-09] VITALS (24 sets, daily range): BP systolic 90–108; BP diastolic 35–48
[2022-10-09] MEDS: IV NS 0.9% 1,000 ML IV PRN (03:07)
[2022-10-09 04:40] LABS: BASOPHILS % (AUTO) 0.2 % (0.0-2.0); CALCIUM, SERUM 8.4 mg/dL (8.5-10.1); CARBON DIOXIDE 30 mmol/L (21-32); CHLORIDE 103 mmol/L (98-107); CREATININE 2.9 mg/dL (0.6-1.3); EOSINOPHILS % (AUTO) 0.1 % (0.0-6.0); GLUCOSE 271 mg/dL (74-106); LYMPHOCYTES # (AUTO) 0.7 K/uL (0.8-4.8); LYMPHOCYTES % (AUTO) 4.5 % (20.0-44.0); MAGNESIUM 2.3 mg/dL (1.8-2.4); MEAN CORPUSCULAR HGB CONC 33 g/dl (31.0-36.0); MEAN CORPUSCULAR VOLUME 97 fL (80-96); MONOCYTES # (AUTO) 0.8 K/uL (0.1-1.30); MONOCYTES % (AUTO) 5.3 % (2.0-12.0); NEUTROPHILS # (AUTO) 13.9 K/uL (1.8-8.9); NEUTROPHILS % (AUTO) 89.9 % (43.0-81.0); PHOSPHORUS 6.7 mg/dL (2.5-4.9); PLATELET COUNT (AUTO) 167 K/uL (150-450); POTASSIUM 3.9 mmol/L (3.5-5.1); RED BLOOD CELL COUNT(AUTO) 2.02 MIL/uL (4.5-6.0); SODIUM SERUM 137 mmol/L (136-145); WHITE BLOOD COUNT (AUTO) 15.4 K/uL (4.3-11.0)
[2022-10-09] MEDS: NEPRO 1,000 ML BOTTLE NG PRN (04:43)
[2022-10-09 04:51] LABS: UREA NITROGEN, BLOOD 85 mg/dL (7-18)
[2022-10-09 04:52] LABS: HEMATOCRIT 20 % (39-51)
[2022-10-09 04:53] LABS: HEMOGLOBIN 6.4 g/dL (13.5-17.5)
[2022-10-09] MEDS: PIPERACILLIN /TAZOBACTAM 2.25 G in IV D5W 50 ML IV SCH ×3 (05:37→21:30)
[2022-10-09 05:58] LABS: BASOPHILS % (MANUAL) 0 % (0.0-2.0); EOSINOPHILS % (MANUAL) 1 % (0-4); LYMPHOCYTES % (MANUAL) 4 % (16-48); MONOCYTES % (MANUAL) 7 % (0-11.0); NEUTROPHILS % (MANUAL) 88 (42-76)
[2022-10-09] MEDS: BLOOD SUGAR DIAGNOSTIC 1 EACH STRIP IN SCH ×3 (06:29→18:59)
[2022-10-09] MEDS: INSULIN REGULAR, HUMAN 100 UNIT/ML 3 ML VIAL SQ PRN ×3 (06:31→19:22)
[2022-10-09] MEDS: ALBUMIN 25% 25 GM in PREMIX 1 EA IV PRN (08:50)
[2022-10-09] MEDS: METOPROLOL SUCCINATE 25 MG TAB.SR.24H PO SCH (09:00)
[2022-10-09] MEDS: ASPIRIN EC 81 MG TABLET.DR PO SCH (09:00)
[2022-10-09] MEDS: BREO IH SCH (09:35)
[2022-10-09] MEDS: DOCUSATE SODIUM 100 MG CAPSULE PO SCH ×2 (11:33→21:00)
[2022-10-09] MEDS: methylPREDNISolone SOD SUCC 125 MG/2ML VIAL IV SCH (11:34)
[2022-10-09] MEDS: CYANOCOBALAMIN 500 MCG TABLET GT SCH ×2 (11:34→18:59)
[2022-10-09] MEDS: THIAMINE HCL 100 MG TABLET GT SCH ×2 (11:34→18:59)
[2022-10-09] MEDS: ALLOPURINOL 100 MG TABLET PO SCH ×2 (11:34→18:59)
[2022-10-09] MEDS: FOLIC ACID 1 MG TABLET GT SCH ×2 (11:34→18:59)
[2022-10-09] MEDS: HEPARIN SODIUM, PORCINE 5000 UNITS/1 ML VIAL SQ SCH ×2 (11:35→21:00)
[2022-10-09] MEDS: PROSOURCE / PROSTAT (PYXIS) 30 ML UDC GT SCH ×2 (12:20→19:35)
[2022-10-09] MEDS: FLUCONAZOLE IN NS 100 MG in PREMIX 1 EA IV SCH ×2 (12:52)
[2022-10-09] MEDS: SOD FERRIC GLUC 125 MG in IV NS 0.9% 100 ML IV SCH (16:34)
[2022-10-09] MEDS: EPOETIN ALFA-EPBX 4,000 UNIT/ML VIAL IV SCH (18:58)
[2022-10-09] MEDS: IV NS 0.9% 250 ML IV PRN (21:48)
[2022-10-09] MEDS: ATORVASTATIN 40 MG TABLET PO SCH (22:25)
[2022-10-10] VITALS (30 sets, daily range): BP systolic 88–112; BP diastolic 31–56
[2022-10-10] MEDS: BLOOD SUGAR DIAGNOSTIC 1 EACH STRIP IN SCH ×5 (00:13→23:29)
[2022-10-10] MEDS: INSULIN REGULAR, HUMAN 100 UNIT/ML 3 ML VIAL SQ PRN ×5 (00:15→23:33)
[2022-10-10] MEDS: IV NS 0.9% 1,000 ML IV PRN (04:01)
[2022-10-10 04:12] LABS: CALCIUM, SERUM 8.2 mg/dL (8.5-10.1); CARBON DIOXIDE 27 mmol/L (21-32); CHLORIDE 101 mmol/L (98-107); CREATININE 3.2 mg/dL (0.6-1.3); GLUCOSE 276 mg/dL (74-106); MAGNESIUM 2.3 mg/dL (1.8-2.4); PHOSPHORUS 6.2 mg/dL (2.5-4.9); SODIUM SERUM 135 mmol/L (136-145)
[2022-10-10] MEDS: NEPRO 1,000 ML BOTTLE NG PRN (04:14)
[2022-10-10 04:19] LABS: UREA NITROGEN, BLOOD 85 mg/dL (7-18)
[2022-10-10 04:36] LABS: BASOPHILS # (AUTO) 0.1 K/uL (0.0-0.2); BASOPHILS % (AUTO) 0.5 % (0.0-2.0); EOSINOPHILS % (AUTO) 0.1 % (0.0-6.0); LYMPHOCYTES # (AUTO) 0.5 K/uL (0.8-4.8); LYMPHOCYTES % (AUTO) 4.1 % (20.0-44.0); MEAN CORPUSCULAR HGB CONC 32 g/dl (31.0-36.0); MEAN CORPUSCULAR VOLUME 98 fL (80-96); MONOCYTES # (AUTO) 0.7 K/uL (0.1-1.30); MONOCYTES % (AUTO) 5.4 % (2.0-12.0); NEUTROPHILS # (AUTO) 11.8 K/uL (1.8-8.9); NEUTROPHILS % (AUTO) 89.9 % (43.0-81.0); PLATELET COUNT (AUTO) 128 K/uL (150-450); RED BLOOD CELL COUNT(AUTO) 2.01 MIL/uL (4.5-6.0); WHITE BLOOD COUNT (AUTO) 13.1 K/uL (4.3-11.0)
[2022-10-10 04:40] LABS: HEMATOCRIT 20 % (39-51); HEMOGLOBIN 6.3 g/dL (13.5-17.5)
[2022-10-10] MEDS: PIPERACILLIN /TAZOBACTAM 2.25 G in IV D5W 50 ML IV SCH ×3 (05:16→21:22)
[2022-10-10 05:21] LABS: BAND % (MANUAL) 2 % (0.0-5.0); LYMPHOCYTES % (MANUAL) 4 % (16-48); MONOCYTES % (MANUAL) 7 % (0-11.0); NEUTROPHILS % (MANUAL) 87 (42-76)
[2022-10-10] MEDS: FOLIC ACID 1 MG TABLET GT SCH ×2 (08:33→17:24)
[2022-10-10] MEDS: methylPREDNISolone SOD SUCC 125 MG/2ML VIAL IV SCH (08:33)
[2022-10-10] MEDS: ALLOPURINOL 100 MG TABLET PO SCH ×2 (08:33→17:24)
[2022-10-10] MEDS: CYANOCOBALAMIN 500 MCG TABLET GT SCH ×2 (08:33→17:25)
[2022-10-10] MEDS: ASPIRIN EC 81 MG TABLET.DR PO SCH (08:33)
[2022-10-10] MEDS: THIAMINE HCL 100 MG TABLET GT SCH ×2 (08:33→17:24)
[2022-10-10] MEDS: PROSOURCE / PROSTAT (PYXIS) 30 ML UDC GT SCH ×2 (08:37→17:16)
[2022-10-10] MEDS: METOPROLOL SUCCINATE 25 MG TAB.SR.24H PO SCH (08:38)
[2022-10-10] MEDS: DOCUSATE SODIUM 100 MG CAPSULE PO SCH ×2 (08:38→21:00)
[2022-10-10] MEDS: BREO IH SCH (08:38)
[2022-10-10] MEDS: HEPARIN SODIUM, PORCINE 5000 UNITS/1 ML VIAL SQ SCH ×2 (08:40→20:50)
[2022-10-10] MEDS: METRONIDAZOLE 500MG/ NS 100ML 500 MG in PREMIX 1 EA IV SCH ×3 (09:40→23:33)
[2022-10-10] MEDS: FLUCONAZOLE IN NS 100 MG in PREMIX 1 EA IV SCH ×2 (15:38)
[2022-10-10] MEDS: VANCOMYCIN POST DIALYSIS 500MG IV PRN ×2 (15:38)
[2022-10-10] MEDS: SOD FERRIC GLUC 125 MG in IV NS 0.9% 100 ML IV SCH (17:16)
[2022-10-10] MEDS: ATORVASTATIN 40 MG TABLET PO SCH (21:57)
[2022-10-11] VITALS (36 sets, daily range): BP systolic 101–132; BP diastolic 37–68
[2022-10-11 04:58] LABS: LYMPHOCYTES # (AUTO) 0.6 K/uL (0.8-4.8); LYMPHOCYTES % (AUTO) 5.8 % (20.0-44.0); MEAN CORPUSCULAR HGB CONC 33 g/dl (31.0-36.0); MEAN CORPUSCULAR VOLUME 100 fL (80-96); MONOCYTES % (AUTO) 10.1 % (2.0-12.0); NEUTROPHILS # (AUTO) 8.4 K/uL (1.8-8.9); NEUTROPHILS % (AUTO) 84.1 % (43.0-81.0); PLATELET COUNT (AUTO) 174 K/uL (150-450)
[2022-10-11 05:00] LABS: RED BLOOD CELL COUNT(AUTO) 1.93 MIL/uL (4.5-6.0)
[2022-10-11 05:03] LABS: HEMOGLOBIN 6.3 g/dL (13.5-17.5)
[2022-10-11 05:04] LABS: HEMATOCRIT 19 % (39-51)
[2022-10-11] MEDS: PIPERACILLIN /TAZOBACTAM 2.25 G in IV D5W 50 ML IV SCH ×4 (05:06→23:32)
[2022-10-11 05:09] LABS: IRON, SERUM 146 ug/dl (50-175); TOTAL IRON BINDING CAPACITY 148 ug/dl (250-450)
[2022-10-11 05:17] LABS: D-DIMER 4.79 mg/L(FEU (0.17-0.50)
[2022-10-11 05:25] LABS: ALKALINE PHOSPHATASE 85 U/L (46-116); ASPARTATE AMINOTRANSFERASE 16 U/L (15-37); BILIRUBIN,DIRECT 0.2 mg/dL (0.0-0.2); BILIRUBIN,TOTAL 0.4 mg/dL (0.2-1.0); CALCIUM, SERUM 7.8 mg/dL (8.5-10.1); CARBON DIOXIDE 28 mmol/L (21-32); CHLORIDE 102 mmol/L (98-107); CREATININE 3.1 mg/dL (0.6-1.3); GLUCOSE 252 mg/dL (74-106); MAGNESIUM 2.1 mg/dL (1.8-2.4); PHOSPHORUS 5.3 mg/dL (2.5-4.9); POTASSIUM 3.1 mmol/L (3.5-5.1); SODIUM SERUM 138 mmol/L (136-145); TOTAL PROTEIN, SERUM 4.1 g/dL (6.4-8.2)
[2022-10-11 05:27] LABS: UREA NITROGEN, BLOOD 81 mg/dL (7-18)
[2022-10-11] MEDS: BLOOD SUGAR DIAGNOSTIC 1 EACH STRIP IN SCH ×3 (05:52→17:23)
[2022-10-11] MEDS: IV NS 0.9% 1,000 ML IV PRN (05:53)
[2022-10-11] MEDS: IV NS 0.9% 250 ML IV PRN (05:53)
[2022-10-11] MEDS: NEPRO 1,000 ML BOTTLE NG PRN (05:53)
[2022-10-11] MEDS: INSULIN REGULAR, HUMAN 100 UNIT/ML 3 ML VIAL SQ PRN ×3 (05:54→17:25)
[2022-10-11 06:02] LABS: ALANINE AMINOTRANSFERASE 22 U/L (12-78)
[2022-10-11 06:03] LABS: FERRITIN 931 ng/mL (8-388)
[2022-10-11] MEDS: METRONIDAZOLE 500MG/ NS 100ML 500 MG in PREMIX 1 EA IV SCH ×3 (07:45→23:33)
[2022-10-11] MEDS: ASPIRIN EC 81 MG TABLET.DR PO SCH (08:47)
[2022-10-11] MEDS: CYANOCOBALAMIN 500 MCG TABLET GT SCH ×2 (08:47→17:23)
[2022-10-11] MEDS: BREO IH SCH (08:47)
[2022-10-11] MEDS: ALLOPURINOL 100 MG TABLET PO SCH ×2 (08:48→17:22)
[2022-10-11] MEDS: FOLIC ACID 1 MG TABLET GT SCH ×2 (08:48→17:22)
[2022-10-11] MEDS: methylPREDNISolone SOD SUCC 125 MG/2ML VIAL IV SCH (08:48)
[2022-10-11] MEDS: METOPROLOL SUCCINATE 25 MG TAB.SR.24H PO SCH (08:48)
[2022-10-11] MEDS: THIAMINE HCL 100 MG TABLET GT SCH ×2 (08:48→17:22)
[2022-10-11] MEDS: PROSOURCE / PROSTAT (PYXIS) 30 ML UDC GT SCH ×2 (08:59→17:23)
[2022-10-11 11:09] LABS: LYMPHOCYTES % (MANUAL) 8 % (16-48); MONOCYTES % (MANUAL) 4 % (0-11.0); NEUTROPHILS % (MANUAL) 88 (42-76)
[2022-10-11] MEDS ORDERED: predniSONE 10 MG TABLET PO SCH (12:30)
[2022-10-11] MEDS: FLUCONAZOLE IN NS 100 MG in PREMIX 1 EA IV SCH ×2 (13:34)
[2022-10-11] MEDS: SOD FERRIC GLUC 125 MG in IV NS 0.9% 100 ML IV SCH (14:12)
[2022-10-11] MEDS: EPOETIN ALFA-EPBX 4,000 UNIT/ML VIAL IV SCH (18:18)
[2022-10-11] MEDS: ATORVASTATIN 40 MG TABLET PO SCH (22:42)
[2022-10-12] VITALS (43 sets, daily range): BP systolic 92–127; BP diastolic 39–66
[2022-10-12] MEDS: BLOOD SUGAR DIAGNOSTIC 1 EACH STRIP IN SCH ×4 (00:30→18:01)
[2022-10-12] MEDS: INSULIN REGULAR, HUMAN 100 UNIT/ML 3 ML VIAL SQ PRN ×3 (00:31→18:00)
[2022-10-12] MEDS: IV NS 0.9% 1,000 ML IV PRN (01:25)
[2022-10-12] MEDS: IV NS 0.9% 250 ML IV PRN (01:26)
[2022-10-12] MEDS: PIPERACILLIN /TAZOBACTAM 2.25 G in IV D5W 50 ML IV SCH ×3 (05:14→18:00)
[2022-10-12 05:21] LABS: BASOPHILS % (AUTO) 0.1 % (0.0-2.0); HEMATOCRIT 24 % (39-51); HEMOGLOBIN 7.7 g/dL (13.5-17.5); LYMPHOCYTES # (AUTO) 0.7 K/uL (0.8-4.8); MEAN CORPUSCULAR HGB CONC 33 g/dl (31.0-36.0); MEAN CORPUSCULAR VOLUME 98 fL (80-96); MONOCYTES % (AUTO) 10.4 % (2.0-12.0); NEUTROPHILS # (AUTO) 8.2 K/uL (1.8-8.9); NEUTROPHILS % (AUTO) 82.5 % (43.0-81.0); PLATELET COUNT (AUTO) 214 K/uL (150-450); RED BLOOD CELL COUNT(AUTO) 2.41 MIL/uL (4.5-6.0)
[2022-10-12 05:39] LABS: CALCIUM, SERUM 7.7 mg/dL (8.5-10.1); CARBON DIOXIDE 26 mmol/L (21-32); CHLORIDE 102 mmol/L (98-107); CREATININE 4.2 mg/dL (0.6-1.3); GLUCOSE 197 mg/dL (74-106); MAGNESIUM 2.3 mg/dL (1.8-2.4); POTASSIUM 3.7 mmol/L (3.5-5.1); SODIUM SERUM 135 mmol/L (136-145)
[2022-10-12 06:02] LABS: UREA NITROGEN, BLOOD 111 mg/dL (7-18)
[2022-10-12] MEDS ORDERED: POTASSIUM CHLORIDE 10 MEQ/50 ML PREMIXED IVPB FOR PERIPHERAL LINE IV ONE (07:30)
[2022-10-12] MEDS: PROSOURCE / PROSTAT (PYXIS) 30 ML UDC GT SCH ×2 (09:10→17:39)
[2022-10-12] MEDS: FOLIC ACID 1 MG TABLET GT SCH ×2 (09:12→17:39)
[2022-10-12] MEDS: METRONIDAZOLE 500 MG TABLET PO SCH ×3 (09:12→21:10)
[2022-10-12] MEDS: THIAMINE HCL 100 MG TABLET GT SCH ×2 (09:13→17:39)
[2022-10-12] MEDS: ASPIRIN EC 81 MG TABLET.DR PO SCH (09:13)
[2022-10-12] MEDS: predniSONE 5 MG TABLET PO SCH (09:14)
[2022-10-12] MEDS: FLUCONAZOLE (100 MG) 100 MG TABLET PO SCH (09:16)
[2022-10-12] MEDS: ALLOPURINOL 100 MG TABLET PO SCH ×2 (09:16→17:38)
[2022-10-12] MEDS: CYANOCOBALAMIN 500 MCG TABLET GT SCH ×2 (09:17→17:38)
[2022-10-12] MEDS: BREO IH SCH (11:14)
[2022-10-12] MEDS ORDERED: PEG 3350/NA SULF,BICARB,CL/KCL 4,000 ML BOTTLE PO ONE (12:30)
[2022-10-12] MEDS: METOPROLOL SUCCINATE 25 MG TAB.SR.24H PO SCH (13:08)
[2022-10-12] MEDS: VANCOMYCIN POST DIALYSIS 500MG IV PRN ×2 (13:08)
[2022-10-12 13:43] LABS: BAND % (MANUAL) 1 % (0.0-5.0); LYMPHOCYTES % (MANUAL) 4 % (16-48); MONOCYTES % (MANUAL) 6 % (0-11.0); NEUTROPHILS % (MANUAL) 89 (42-76)
[2022-10-12] MEDS: SOD FERRIC GLUC 125 MG in IV NS 0.9% 100 ML IV SCH (14:13)
[2022-10-12] MEDS: ATORVASTATIN 40 MG TABLET PO SCH (21:10)
[2022-10-13] VITALS (44 sets, daily range): BP systolic 80–124; BP diastolic 38–70
[2022-10-13] MEDS ORDERED: IV D5/ 0.9% NACL 1,000 ML IV SCH
[2022-10-13] MEDS: PIPERACILLIN /TAZOBACTAM 2.25 G in IV D5W 50 ML IV SCH ×6 (00:16→23:35)
[2022-10-13] MEDS: BLOOD SUGAR DIAGNOSTIC 1 EACH STRIP IN SCH ×4 (00:17→17:34)
[2022-10-13] MEDS: INSULIN REGULAR, HUMAN 100 UNIT/ML 3 ML VIAL SQ PRN ×2 (01:27→23:42)
[2022-10-13 03:13] LABS: OCCULT BLOOD STOOL POSITIVE (NEGATIVE)
[2022-10-13 05:07] LABS: BASOPHILS % (AUTO) 0.1 % (0.0-2.0); HEMATOCRIT 22 % (39-51); HEMOGLOBIN 7.2 g/dL (13.5-17.5); LYMPHOCYTES # (AUTO) 0.8 K/uL (0.8-4.8); MEAN CORPUSCULAR HGB CONC 33 g/dl (31.0-36.0); MEAN CORPUSCULAR VOLUME 100 fL (80-96); MONOCYTES # (AUTO) 1.1 K/uL (0.1-1.30); MONOCYTES % (AUTO) 11.2 % (2.0-12.0); NEUTROPHILS # (AUTO) 7.7 K/uL (1.8-8.9); NEUTROPHILS % (AUTO) 80.7 % (43.0-81.0); PLATELET COUNT (AUTO) 203 K/uL (150-450); RED BLOOD CELL COUNT(AUTO) 2.21 MIL/uL (4.5-6.0); WHITE BLOOD COUNT (AUTO) 9.6 K/uL (4.3-11.0)
[2022-10-13 05:18] LABS: CALCIUM, SERUM 7.5 mg/dL (8.5-10.1); CARBON DIOXIDE 28 mmol/L (21-32); CHLORIDE 101 mmol/L (98-107); CREATININE 3.5 mg/dL (0.6-1.3); GLUCOSE 190 mg/dL (74-106); PHOSPHORUS 6.6 mg/dL (2.5-4.9); POTASSIUM 3.9 mmol/L (3.5-5.1); SODIUM SERUM 137 mmol/L (136-145); UREA NITROGEN, BLOOD 79 mg/dL (7-18)
[2022-10-13 08:06] LABS: IMMUNOGLOBULIN A, SERUM 90 mg/dL (61-437); IMMUNOGLOBULIN G, SERUM 480 mg/dL (603-1613); IMMUNOGLOBULIN M, SERUM 22 mg/dL (15-143)
[2022-10-13] MEDS ORDERED: ANESTHESIA TRAY IN PYXIS 1 EA TRAY MC ONE (08:47)
[2022-10-13] MEDS: BREO IH SCH (09:00)
[2022-10-13] MEDS: METRONIDAZOLE 500 MG TABLET PO SCH ×3 (09:00→22:13)
[2022-10-13] MEDS: THIAMINE HCL 100 MG TABLET GT SCH ×2 (09:00→16:37)
[2022-10-13] MEDS: PROSOURCE / PROSTAT (PYXIS) 30 ML UDC GT SCH ×2 (09:00→16:37)
[2022-10-13] MEDS: FOLIC ACID 1 MG TABLET GT SCH ×2 (09:00→16:37)
[2022-10-13] MEDS: CYANOCOBALAMIN 500 MCG TABLET GT SCH ×2 (09:00→16:37)
[2022-10-13] MEDS: ALLOPURINOL 100 MG TABLET PO SCH ×2 (09:00→16:37)
[2022-10-13] MEDS ORDERED: SIMETHICONE SUSP 40 MG/0.6 ML BOTTLE ONE (09:45)
[2022-10-13] MEDS: PANTOPRAZOLE 40 MG VIAL IV SCH (15:38)
[2022-10-13] MEDS: METOPROLOL SUCCINATE 25 MG TAB.SR.24H PO SCH (15:39)
[2022-10-13] MEDS: predniSONE 5 MG TABLET PO SCH (15:39)
[2022-10-13] MEDS: FLUCONAZOLE (100 MG) 100 MG TABLET PO SCH (15:39)
[2022-10-13] MEDS: VANCOMYCIN POST DIALYSIS 500MG IV PRN ×2 (15:40)
[2022-10-13] MEDS: SUCRALFATE 1 G/10 ML UDC GT SCH ×2 (16:37→22:13)
[2022-10-13] MEDS: ATORVASTATIN 40 MG TABLET PO SCH (22:13)
[2022-10-14] VITALS (58 sets, daily range): BP systolic 85–139; BP diastolic 31–84
[2022-10-14] MEDS: BLOOD SUGAR DIAGNOSTIC 1 EACH STRIP IN SCH ×4 (00:23→18:18)
[2022-10-14] MEDS: PANTOPRAZOLE 40 MG VIAL IV SCH ×2 (03:19→16:08)
[2022-10-14 04:09] LABS: EOSINOPHILS % (AUTO) 0.1 % (0.0-6.0); HEMATOCRIT 21 % (39-51); LYMPHOCYTES # (AUTO) 0.4 K/uL (0.8-4.8); LYMPHOCYTES % (AUTO) 5.4 % (20.0-44.0); MEAN CORPUSCULAR HGB CONC 33 g/dl (31.0-36.0); MEAN CORPUSCULAR VOLUME 99 fL (80-96); MONOCYTES # (AUTO) 0.2 K/uL (0.1-1.30); MONOCYTES % (AUTO) 3.2 % (2.0-12.0); NEUTROPHILS # (AUTO) 6.6 K/uL (1.8-8.9); NEUTROPHILS % (AUTO) 91.3 % (43.0-81.0); PLATELET COUNT (AUTO) 176 K/uL (150-450); WHITE BLOOD COUNT (AUTO) 7.2 K/uL (4.3-11.0)
[2022-10-14 04:12] LABS: HEMOGLOBIN 6.8 g/dL (13.5-17.5)
[2022-10-14 04:13] LABS: CALCIUM, SERUM 7.4 mg/dL (8.5-10.1); CARBON DIOXIDE 26 mmol/L (21-32); CHLORIDE 105 mmol/L (98-107); CREATININE 3.1 mg/dL (0.6-1.3); GLUCOSE 176 mg/dL (74-106); MAGNESIUM 1.9 mg/dL (1.8-2.4); PHOSPHORUS 5.4 mg/dL (2.5-4.9); POTASSIUM 3.8 mmol/L (3.5-5.1); SODIUM SERUM 136 mmol/L (136-145); UREA NITROGEN, BLOOD 56 mg/dL (7-18)
[2022-10-14 04:46] LABS: BAND % (MANUAL) 3 % (0.0-5.0); BASOPHILS % (MANUAL) 0 % (0.0-2.0); EOSINOPHILS % (MANUAL) 0 % (0-4); LYMPHOCYTES % (MANUAL) 6 % (16-48); MONOCYTES % (MANUAL) 4 % (0-11.0); NEUTROPHILS % (MANUAL) 87 (42-76)
[2022-10-14] MEDS ORDERED: NOREPINEPHRINE 8MG/250ML RTU 250 ML IV ONE (04:59)
[2022-10-14] MEDS ORDERED: NOREPINEPHRINE 8 MG in IV NS 0.9% 242 ML IV PRN (05:00)
[2022-10-14] MEDS: PIPERACILLIN /TAZOBACTAM 2.25 G in IV D5W 50 ML IV SCH ×2 (05:17→12:49)
[2022-10-14] MEDS: IV NS 0.9% 250 ML IV PRN (06:27)
[2022-10-14] MEDS: SUCRALFATE 1 G/10 ML UDC GT SCH ×4 (08:28→21:24)
[2022-10-14] MEDS: METRONIDAZOLE 500 MG TABLET PO SCH ×3 (08:53→21:24)
[2022-10-14] MEDS: CYANOCOBALAMIN 500 MCG TABLET GT SCH ×2 (08:53→16:09)
[2022-10-14] MEDS: THIAMINE HCL 100 MG TABLET GT SCH ×2 (08:55→16:09)
[2022-10-14] MEDS: ALLOPURINOL 100 MG TABLET PO SCH ×2 (08:56→16:09)
[2022-10-14] MEDS: FLUCONAZOLE (100 MG) 100 MG TABLET PO SCH (08:56)
[2022-10-14] MEDS: PROSOURCE / PROSTAT (PYXIS) 30 ML UDC GT SCH ×2 (08:56→16:10)
[2022-10-14] MEDS: FOLIC ACID 1 MG TABLET GT SCH ×2 (08:56→16:09)
[2022-10-14] MEDS: METOPROLOL SUCCINATE 25 MG TAB.SR.24H PO SCH (09:00)
[2022-10-14] MEDS: BREO IH SCH (09:13)
[2022-10-14] MEDS: predniSONE 5 MG TABLET PO SCH (10:56)
[2022-10-14 12:07] LABS: *SPE A/G RATIO 1.5 (0.7-1.7); *SPE ALPHA-1-GLOBULIN 0.2 g/dL (0.0-0.4); *SPE ALPHA-2-GLOBULIN 0.3 g/dL (0.4-1.0); *SPE BETA GLOBULIN 0.6 g/dL (0.7-1.3); *SPE M-SPIKE 0.1 g/dL (Not Observed)
[2022-10-14] MEDS: ASPIRIN 300 MG/SUPP.RECT RC SCH (12:43)
[2022-10-14] MEDS: VANCOMYCIN POST DIALYSIS 500MG IV PRN ×2 (12:50)
[2022-10-14] MEDS ORDERED: methylPREDNISolone SOD SUCC 125 MG/2ML VIAL IV STA (13:29)
[2022-10-14] MEDS ORDERED: PROSOURCE / PROSTAT (PYXIS) 30 ML UDC PO SCH (14:00)
[2022-10-14] MEDS: FAMOTIDINE/PF INJ 20 MG/2 ML VIAL IV SCH ×2 (14:45→21:24)
[2022-10-14] MEDS: ALBUMIN 25% 25 GM in PREMIX 1 EA IV SCH (16:08)
[2022-10-14] MEDS: EPOETIN ALFA-EPBX 4,000 UNIT/ML VIAL IV SCH (18:18)
[2022-10-14] MEDS: INSULIN REGULAR, HUMAN 100 UNIT/ML 3 ML VIAL SQ PRN (18:47)
[2022-10-14] MEDS: ATORVASTATIN 40 MG TABLET PO SCH (21:24)
[2022-10-15] VITALS (48 sets, daily range): BP systolic 90–133; BP diastolic 38–68
[2022-10-15] MEDS: BLOOD SUGAR DIAGNOSTIC 1 EACH STRIP IN SCH ×5 (00:02→23:58)
[2022-10-15] MEDS: INSULIN REGULAR, HUMAN 100 UNIT/ML 3 ML VIAL SQ PRN ×4 (00:05→17:19)
[2022-10-15] MEDS: ALBUMIN 25% 25 GM in PREMIX 1 EA IV SCH (02:41)
[2022-10-15] MEDS: PANTOPRAZOLE 40 MG VIAL IV SCH ×2 (03:59→15:43)
[2022-10-15 04:21] LABS: BASOPHILS % (AUTO) 0.1 % (0.0-2.0); HEMATOCRIT 21 % (39-51); LYMPHOCYTES # (AUTO) 0.6 K/uL (0.8-4.8); LYMPHOCYTES % (AUTO) 8.4 % (20.0-44.0); MEAN CORPUSCULAR HGB CONC 33 g/dl (31.0-36.0); MEAN CORPUSCULAR VOLUME 100 fL (80-96); MONOCYTES # (AUTO) 0.6 K/uL (0.1-1.30); MONOCYTES % (AUTO) 8.7 % (2.0-12.0); NEUTROPHILS # (AUTO) 5.5 K/uL (1.8-8.9); NEUTROPHILS % (AUTO) 82.8 % (43.0-81.0); PLATELET COUNT (AUTO) 182 K/uL (150-450); RED BLOOD CELL COUNT(AUTO) 2.08 MIL/uL (4.5-6.0); WHITE BLOOD COUNT (AUTO) 6.7 K/uL (4.3-11.0)
[2022-10-15 04:27] LABS: HEMOGLOBIN 6.8 g/dL (13.5-17.5)
[2022-10-15 04:28] LABS: ALANINE AMINOTRANSFERASE 22 U/L (12-78); ALBUMIN 2.2 g/dL (3.4-5.0); ALKALINE PHOSPHATASE 73 U/L (46-116); ASPARTATE AMINOTRANSFERASE 17 U/L (15-37); BILIRUBIN,DIRECT 0.2 mg/dL (0.0-0.2); BILIRUBIN,TOTAL 0.4 mg/dL (0.2-1.0); CALCIUM, SERUM 7.5 mg/dL (8.5-10.1); CARBON DIOXIDE 26 mmol/L (21-32); CHLORIDE 103 mmol/L (98-107); CREATININE 2.8 mg/dL (0.6-1.3); GLUCOSE 246 mg/dL (74-106); PHOSPHORUS 4.6 mg/dL (2.5-4.9); POTASSIUM 3.6 mmol/L (3.5-5.1); SODIUM SERUM 135 mmol/L (136-145); TOTAL PROTEIN, SERUM 4.3 g/dL (6.4-8.2); UREA NITROGEN, BLOOD 52 mg/dL (7-18)
[2022-10-15] MEDS: SUCRALFATE 1 G/10 ML UDC GT SCH (07:51)
[2022-10-15] MEDS: THIAMINE HCL 100 MG TABLET GT SCH ×2 (08:59→16:29)
[2022-10-15] MEDS: FAMOTIDINE/PF INJ 20 MG/2 ML VIAL IV SCH ×2 (08:59→21:11)
[2022-10-15] MEDS: CYANOCOBALAMIN 500 MCG TABLET GT SCH ×2 (08:59→16:30)
[2022-10-15] MEDS: METRONIDAZOLE 500 MG TABLET PO SCH ×3 (08:59→21:11)
[2022-10-15] MEDS: FOLIC ACID 1 MG TABLET GT SCH ×2 (08:59→16:30)
[2022-10-15] MEDS: FLUCONAZOLE (100 MG) 100 MG TABLET PO SCH (08:59)
[2022-10-15] MEDS: ALLOPURINOL 100 MG TABLET PO SCH ×2 (08:59→16:30)
[2022-10-15] MEDS: METOPROLOL SUCCINATE 25 MG TAB.SR.24H PO SCH (08:59)
[2022-10-15] MEDS: PROSOURCE / PROSTAT (PYXIS) 30 ML UDC GT SCH ×2 (09:01→16:30)
[2022-10-15] MEDS: ASPIRIN 300 MG/SUPP.RECT RC SCH (09:01)
[2022-10-15] MEDS: BREO IH SCH (09:02)
[2022-10-15] MEDS ORDERED: SUCRALFATE 1 G TABLET PO SCH (10:00)
[2022-10-15 10:21] LABS: LYMPHOCYTES % (MANUAL) 7 % (16-48); MONOCYTES % (MANUAL) 6 % (0-11.0); NEUTROPHILS % (MANUAL) 87 (42-76)
[2022-10-15] MEDS: SUCRALFATE 1 G TABLET PO SCH ×3 (12:30→21:11)
[2022-10-15] MEDS: ATORVASTATIN 40 MG TABLET PO SCH (21:11)
[2022-10-16] VITALS (53 sets, daily range): BP systolic 86–118; BP diastolic 28–93
[2022-10-16] MEDS: INSULIN REGULAR, HUMAN 100 UNIT/ML 3 ML VIAL SQ PRN ×4 (00:01→23:57)
[2022-10-16] MEDS: PANTOPRAZOLE 40 MG VIAL IV SCH ×2 (03:20→14:01)
[2022-10-16 03:37] LABS: BASOPHILS % (AUTO) 0.1 % (0.0-2.0); EOSINOPHILS % (AUTO) 0.9 % (0.0-6.0); HEMATOCRIT 24 % (39-51); HEMOGLOBIN 7.9 g/dL (13.5-17.5); LYMPHOCYTES # (AUTO) 0.8 K/uL (0.8-4.8); MEAN CORPUSCULAR HGB CONC 32 g/dl (31.0-36.0); MEAN CORPUSCULAR VOLUME 98 fL (80-96); MONOCYTES # (AUTO) 0.7 K/uL (0.1-1.30); MONOCYTES % (AUTO) 9.7 % (2.0-12.0); NEUTROPHILS # (AUTO) 5.5 K/uL (1.8-8.9); NEUTROPHILS % (AUTO) 78.3 % (43.0-81.0); PLATELET COUNT (AUTO) 175 K/uL (150-450); RED BLOOD CELL COUNT(AUTO) 2.47 MIL/uL (4.5-6.0); WHITE BLOOD COUNT (AUTO) 7.1 K/uL (4.3-11.0)
[2022-10-16 03:43] LABS: CALCIUM, SERUM 7.2 mg/dL (8.5-10.1); CARBON DIOXIDE 27 mmol/L (21-32); CHLORIDE 101 mmol/L (98-107); CREATININE 3.7 mg/dL (0.6-1.3); GLUCOSE 141 mg/dL (74-106); POTASSIUM 3.1 mmol/L (3.5-5.1); SODIUM SERUM 135 mmol/L (136-145); UREA NITROGEN, BLOOD 71 mg/dL (7-18)
[2022-10-16] MEDS: BLOOD SUGAR DIAGNOSTIC 1 EACH STRIP IN SCH ×3 (06:02→16:39)
[2022-10-16] MEDS: SUCRALFATE 1 G TABLET PO SCH ×4 (07:38→21:47)
[2022-10-16] MEDS: FOLIC ACID 1 MG TABLET GT SCH ×2 (08:58→16:54)
[2022-10-16] MEDS: CYANOCOBALAMIN 500 MCG TABLET GT SCH ×2 (08:58→16:54)
[2022-10-16] MEDS: THIAMINE HCL 100 MG TABLET GT SCH ×2 (08:58→16:54)
[2022-10-16] MEDS: METRONIDAZOLE 500 MG TABLET PO SCH ×3 (09:00→21:47)
[2022-10-16] MEDS: ALLOPURINOL 100 MG TABLET PO SCH ×2 (09:00→16:54)
[2022-10-16] MEDS ORDERED: LIDOCAINE 1% INJ 50 ML MDV IJ ONE (09:00)
[2022-10-16] MEDS: FLUCONAZOLE (100 MG) 100 MG TABLET PO SCH (09:00)
[2022-10-16] MEDS: METOPROLOL SUCCINATE 25 MG TAB.SR.24H PO SCH (09:00)
[2022-10-16] MEDS: ASPIRIN 300 MG/SUPP.RECT RC SCH (09:00)
[2022-10-16] MEDS: BREO IH SCH (09:10)
[2022-10-16] MEDS: PROSOURCE / PROSTAT (PYXIS) 30 ML UDC GT SCH ×2 (09:10→16:38)
[2022-10-16] MEDS: IV NS 0.9% 250 ML IV PRN (12:31)
[2022-10-16] MEDS ORDERED: methylPREDNISolone SOD SUCC 125 MG/2ML VIAL IV ONE (13:30)
[2022-10-16] MEDS: VANCOMYCIN POST DIALYSIS 500MG IV PRN ×2 (16:37)
[2022-10-16] MEDS: EPOETIN ALFA-EPBX 4,000 UNIT/ML VIAL IV SCH (17:57)
[2022-10-16] MEDS: ATORVASTATIN 40 MG TABLET PO SCH (21:47)
[2022-10-17] VITALS (49 sets, daily range): BP systolic 63–154; BP diastolic 38–130
[2022-10-17] MEDS: BLOOD SUGAR DIAGNOSTIC 1 EACH STRIP IN SCH ×4 (00:29→17:14)
[2022-10-17] MEDS: PANTOPRAZOLE 40 MG VIAL IV SCH ×2 (03:14→16:07)
[2022-10-17 03:30] LABS: BASOPHILS % (AUTO) 0.2 % (0.0-2.0); HEMATOCRIT 24 % (39-51); HEMOGLOBIN 7.6 g/dL (13.5-17.5); LYMPHOCYTES # (AUTO) 0.2 K/uL (0.8-4.8); MEAN CORPUSCULAR HGB CONC 32 g/dl (31.0-36.0); MEAN CORPUSCULAR VOLUME 99 fL (80-96); MONOCYTES % (AUTO) 0.8 % (2.0-12.0); NEUTROPHILS # (AUTO) 4.6 K/uL (1.8-8.9); PLATELET COUNT (AUTO) 165 K/uL (150-450); RED BLOOD CELL COUNT(AUTO) 2.43 MIL/uL (4.5-6.0); WHITE BLOOD COUNT (AUTO) 4.9 K/uL (4.3-11.0)
[2022-10-17 03:51] LABS: CALCIUM, SERUM 7.5 mg/dL (8.5-10.1); CARBON DIOXIDE 26 mmol/L (21-32); CHLORIDE 102 mmol/L (98-107); CREATININE 3.8 mg/dL (0.6-1.3); GLUCOSE 268 mg/dL (74-106); PHOSPHORUS 6.2 mg/dL (2.5-4.9); POTASSIUM 3.9 mmol/L (3.5-5.1); SODIUM SERUM 134 mmol/L (136-145); UREA NITROGEN, BLOOD 73 mg/dL (7-18)
[2022-10-17] MEDS: INSULIN REGULAR, HUMAN 100 UNIT/ML 3 ML VIAL SQ PRN ×3 (06:46→17:17)
[2022-10-17] MEDS: SUCRALFATE 1 G TABLET PO SCH ×4 (07:19→21:49)
[2022-10-17] MEDS: METOPROLOL SUCCINATE 25 MG TAB.SR.24H PO SCH (09:00)
[2022-10-17] MEDS: ALLOPURINOL 100 MG TABLET PO SCH ×2 (09:15→16:14)
[2022-10-17] MEDS: FLUCONAZOLE (100 MG) 100 MG TABLET PO SCH (09:15)
[2022-10-17] MEDS: METRONIDAZOLE 500 MG TABLET PO SCH ×3 (09:15→21:49)
[2022-10-17] MEDS: CYANOCOBALAMIN 500 MCG TABLET GT SCH ×2 (09:16→16:14)
[2022-10-17] MEDS: FOLIC ACID 1 MG TABLET GT SCH ×2 (09:17→16:13)
[2022-10-17] MEDS: THIAMINE HCL 100 MG TABLET GT SCH ×2 (09:17→16:14)
[2022-10-17] MEDS: PROSOURCE / PROSTAT (PYXIS) 30 ML UDC GT SCH ×2 (09:18→16:16)
[2022-10-17] MEDS: BREO IH SCH (09:18)
[2022-10-17] MEDS: ASPIRIN 300 MG/SUPP.RECT RC SCH (09:55)
[2022-10-17] MEDS: LEVOFLOXACIN 500 MG /D5W 100ML 500 MG in PREMIX 1 EA IV SCH (16:13)
[2022-10-17] MEDS: methylPREDNISolone SOD SUCC 125 MG/2ML VIAL IV SCH (16:13)
[2022-10-17] MEDS ORDERED: LORAZEPAM 1 MG TABLET PO ONE (18:00)
[2022-10-17] MEDS ORDERED: MORPHINE SULFATE INJ 2 MG/ML DISP.SYRIN IV ONE (18:00)
[2022-10-17] MEDS: ATORVASTATIN 40 MG TABLET PO SCH (21:49)
[2022-10-18] VITALS (37 sets, daily range): BP systolic 90–113; BP diastolic 39–63
[2022-10-18] MEDS: BLOOD SUGAR DIAGNOSTIC 1 EACH STRIP IN SCH ×4 (00:44→17:42)
[2022-10-18] MEDS: INSULIN REGULAR, HUMAN 100 UNIT/ML 3 ML VIAL SQ PRN ×4 (00:46→17:43)
[2022-10-18] MEDS: IV NS 0.9% 250 ML IV PRN (01:33)
[2022-10-18] MEDS: PANTOPRAZOLE 40 MG VIAL IV SCH (02:42)
[2022-10-18 04:47] LABS: BASOPHILS % (AUTO) 0.2 % (0.0-2.0); EOSINOPHILS % (AUTO) 0.6 % (0.0-6.0); HEMATOCRIT 25 % (39-51); HEMOGLOBIN 8.1 g/dL (13.5-17.5); LYMPHOCYTES # (AUTO) 0.1 K/uL (0.8-4.8); LYMPHOCYTES % (AUTO) 1.5 % (20.0-44.0); MEAN CORPUSCULAR HGB CONC 32 g/dl (31.0-36.0); MEAN CORPUSCULAR VOLUME 100 fL (80-96); MONOCYTES % (AUTO) 0.2 % (2.0-12.0); NEUTROPHILS % (AUTO) 97.5 % (43.0-81.0); PLATELET COUNT (AUTO) 182 K/uL (150-450); RED BLOOD CELL COUNT(AUTO) 2.52 MIL/uL (4.5-6.0); WHITE BLOOD COUNT (AUTO) 8.2 K/uL (4.3-11.0)
[2022-10-18 04:58] LABS: CALCIUM, SERUM 7.6 mg/dL (8.5-10.1); CHLORIDE 100 mmol/L (98-107); CREATININE 4.6 mg/dL (0.6-1.3); GLUCOSE 294 mg/dL (74-106); POTASSIUM 4.1 mmol/L (3.5-5.1); SODIUM SERUM 132 mmol/L (136-145)
[2022-10-18 05:00] LABS: UREA NITROGEN, BLOOD 96 mg/dL (7-18)
[2022-10-18 05:10] LABS: CARBON DIOXIDE 24 mmol/L (21-32)
[2022-10-18] MEDS: SUCRALFATE 1 G TABLET PO SCH ×4 (07:18→21:41)
[2022-10-18] MEDS: CYANOCOBALAMIN 500 MCG TABLET GT SCH ×2 (08:36→16:34)
[2022-10-18] MEDS: methylPREDNISolone SOD SUCC 125 MG/2ML VIAL IV SCH (08:36)
[2022-10-18] MEDS: THIAMINE HCL 100 MG TABLET GT SCH ×2 (08:37→16:34)
[2022-10-18] MEDS: ALLOPURINOL 100 MG TABLET PO SCH ×2 (08:37→16:34)
[2022-10-18] MEDS: FLUCONAZOLE (100 MG) 100 MG TABLET PO SCH (08:37)
[2022-10-18] MEDS: FOLIC ACID 1 MG TABLET GT SCH ×2 (08:37→16:34)
[2022-10-18] MEDS: METRONIDAZOLE 500 MG TABLET PO SCH ×3 (08:37→21:41)
[2022-10-18] MEDS: PROSOURCE / PROSTAT (PYXIS) 30 ML UDC GT SCH ×2 (08:38→16:35)
[2022-10-18] MEDS: METOPROLOL SUCCINATE 25 MG TAB.SR.24H PO SCH (08:39)
[2022-10-18] MEDS: ASPIRIN 300 MG/SUPP.RECT RC SCH (08:53)
[2022-10-18] MEDS: BREO IH SCH (09:12)
[2022-10-18] MEDS: ALBUMIN 25% 25 GM in PREMIX 1 EA IV PRN (13:32)
[2022-10-18] MEDS: LEVOFLOXACIN 500 MG /D5W 100ML 500 MG in PREMIX 1 EA IV SCH (13:58)
[2022-10-18] MEDS: PANTOPRAZOLE 40 MG/PACK PACK PO SCH (16:34)
[2022-10-18] MEDS: EPOETIN ALFA-EPBX 4,000 UNIT/ML VIAL IV SCH (17:42)
[2022-10-18] MEDS: ATORVASTATIN 40 MG TABLET PO SCH (21:41)
[2022-10-19] VITALS (7 sets, daily range): BP systolic 92–121; BP diastolic 50–58
[2022-10-19] MEDS: BLOOD SUGAR DIAGNOSTIC 1 EACH STRIP IN SCH ×5 (00:29→21:13)
[2022-10-19] MEDS: INSULIN REGULAR, HUMAN 100 UNIT/ML 3 ML VIAL SQ PRN ×5 (00:44→21:15)
[2022-10-19 06:24] LABS: BASOPHILS % (AUTO) 0.2 % (0.0-2.0); HEMATOCRIT 24 % (39-51); HEMOGLOBIN 7.7 g/dL (13.5-17.5); LYMPHOCYTES # (AUTO) 0.3 K/uL (0.8-4.8); LYMPHOCYTES % (AUTO) 2.4 % (20.0-44.0); MEAN CORPUSCULAR HGB CONC 32 g/dl (31.0-36.0); MEAN CORPUSCULAR VOLUME 102 fL (80-96); MONOCYTES # (AUTO) 0.4 K/uL (0.1-1.30); MONOCYTES % (AUTO) 4.1 % (2.0-12.0); NEUTROPHILS # (AUTO) 9.9 K/uL (1.8-8.9); NEUTROPHILS % (AUTO) 93.3 % (43.0-81.0); PLATELET COUNT (AUTO) 174 K/uL (150-450); RED BLOOD CELL COUNT(AUTO) 2.37 MIL/uL (4.5-6.0); WHITE BLOOD COUNT (AUTO) 10.6 K/uL (4.3-11.0)
[2022-10-19] MEDS: THIAMINE HCL 100 MG TABLET GT SCH ×2 (08:34→16:22)
[2022-10-19] MEDS: FLUCONAZOLE (100 MG) 100 MG TABLET PO SCH (08:34)
[2022-10-19] MEDS: SUCRALFATE 1 G TABLET PO SCH ×4 (08:34→21:01)
[2022-10-19] MEDS: METOPROLOL SUCCINATE 25 MG TAB.SR.24H PO SCH (08:34)
[2022-10-19] MEDS: PANTOPRAZOLE 40 MG/PACK PACK PO SCH ×2 (08:35→16:21)
[2022-10-19] MEDS: METRONIDAZOLE 500 MG TABLET PO SCH ×3 (08:35→20:51)
[2022-10-19] MEDS: methylPREDNISolone SOD SUCC 125 MG/2ML VIAL IV SCH (08:35)
[2022-10-19] MEDS: CYANOCOBALAMIN 500 MCG TABLET GT SCH ×2 (08:35→16:21)
[2022-10-19] MEDS: FOLIC ACID 1 MG TABLET GT SCH ×2 (08:35→16:22)
[2022-10-19] MEDS: ALLOPURINOL 100 MG TABLET PO SCH ×2 (08:35→16:22)
[2022-10-19] MEDS: ASPIRIN 300 MG/SUPP.RECT RC SCH (08:36)
[2022-10-19 08:37] LABS: CALCIUM, SERUM 7.8 mg/dL (8.5-10.1); CARBON DIOXIDE 26 mmol/L (21-32); CHLORIDE 99 mmol/L (98-107); CREATININE 4.2 mg/dL (0.6-1.3); POTASSIUM 3.8 mmol/L (3.5-5.1); SODIUM SERUM 132 mmol/L (136-145)
[2022-10-19] MEDS: PROSOURCE / PROSTAT (PYXIS) 30 ML UDC GT SCH ×2 (08:39→16:22)
[2022-10-19 08:42] LABS: GLUCOSE 366 mg/dL (74-106); UREA NITROGEN, BLOOD 89 mg/dL (7-18)
[2022-10-19] MEDS: BREO IH SCH (09:21)
[2022-10-19] MEDS: LEVOFLOXACIN 500 MG /D5W 100ML 500 MG in PREMIX 1 EA IV SCH (14:21)
[2022-10-19] MEDS: IV NS 0.9% 250 ML IV PRN (18:16)
[2022-10-19] MEDS ORDERED: DEXTROSE 50%-WATER 50 ML DISP.SYRIN IV PRN (21:00)
[2022-10-19] MEDS: ATORVASTATIN 40 MG TABLET PO SCH (21:00)
[2022-10-19] MEDS ORDERED: BLOOD SUGAR DIAGNOSTIC 1 EACH STRIP IN SCH (21:00)
[2022-10-20] VITALS: BP 112/54
[2022-10-20] MEDS: INSULIN REGULAR, HUMAN 100 UNIT/ML 3 ML VIAL SQ PRN ×6 (01:06→21:41)
[2022-10-20] MEDS: BLOOD SUGAR DIAGNOSTIC 1 EACH STRIP IN SCH ×6 (01:06→21:38)
[2022-10-20 04:00] VITALS: BP 106/50
[2022-10-20 08:00] VITALS: BP 116/54
[2022-10-20] MEDS: SUCRALFATE 1 G TABLET PO SCH ×4 (08:20→21:38)
[2022-10-20] MEDS: CYANOCOBALAMIN 500 MCG TABLET GT SCH (08:20)
[2022-10-20] MEDS: FOLIC ACID 1 MG TABLET GT SCH (08:20)
[2022-10-20] MEDS: PANTOPRAZOLE 40 MG/PACK PACK PO SCH ×2 (08:20→16:14)
[2022-10-20] MEDS: THIAMINE HCL 100 MG TABLET GT SCH (08:24)
[2022-10-20] MEDS: ALLOPURINOL 100 MG TABLET PO SCH ×2 (08:24→16:14)
[2022-10-20] MEDS: methylPREDNISolone SOD SUCC 125 MG/2ML VIAL IV SCH (08:24)
[2022-10-20] MEDS: FLUCONAZOLE (100 MG) 100 MG TABLET PO SCH (08:24)
[2022-10-20] MEDS: METRONIDAZOLE 500 MG TABLET PO SCH ×3 (08:24→21:38)
[2022-10-20] MEDS: PROSOURCE / PROSTAT (PYXIS) 30 ML UDC GT SCH ×2 (08:25→16:16)
[2022-10-20] MEDS: BREO IH SCH (08:26)
[2022-10-20] MEDS: METOPROLOL SUCCINATE 25 MG TAB.SR.24H PO SCH (08:45)
[2022-10-20] MEDS: ASPIRIN 300 MG/SUPP.RECT RC SCH ×2 (08:45→11:35)
[2022-10-20 12:00] VITALS: BP 112/74
[2022-10-20 12:39] LABS: HEMATOCRIT 26 % (39-51); HEMOGLOBIN 8.1 g/dL (13.5-17.5); LYMPHOCYTES # (AUTO) 0.3 K/uL (0.8-4.8); MEAN CORPUSCULAR HGB CONC 31 g/dl (31.0-36.0); MEAN CORPUSCULAR VOLUME 103 fL (80-96); MONOCYTES # (AUTO) 0.2 K/uL (0.1-1.30); MONOCYTES % (AUTO) 1.5 % (2.0-12.0); NEUTROPHILS # (AUTO) 12.9 K/uL (1.8-8.9); NEUTROPHILS % (AUTO) 96.5 % (43.0-81.0); PLATELET COUNT (AUTO) 168 K/uL (150-450); RED BLOOD CELL COUNT(AUTO) 2.51 MIL/uL (4.5-6.0); WHITE BLOOD COUNT (AUTO) 13.4 K/uL (4.3-11.0)
[2022-10-20] MEDS: INSULIN GLARGINE, 100 UNIT/ML CARTRIDGE SQ SCH (12:44)
[2022-10-20 12:52] LABS: CALCIUM, SERUM 7.6 mg/dL (8.5-10.1); CARBON DIOXIDE 23 mmol/L (21-32); CHLORIDE 99 mmol/L (98-107); CREATININE 5.3 mg/dL (0.6-1.3); GLUCOSE 268 mg/dL (74-106); POTASSIUM 3.9 mmol/L (3.5-5.1); SODIUM SERUM 131 mmol/L (136-145)
[2022-10-20 12:58] LABS: UREA NITROGEN, BLOOD 111 mg/dL (7-18)
[2022-10-20] MEDS: LEVOFLOXACIN 500 MG /D5W 100ML 500 MG in PREMIX 1 EA IV SCH (13:29)
[2022-10-20 16:00] VITALS: BP 109/48
[2022-10-20] MEDS: THIAMINE HCL 100 MG TABLET PO SCH (16:14)
[2022-10-20] MEDS: FOLIC ACID 1 MG TABLET PO SCH (16:14)
[2022-10-20] MEDS: CYANOCOBALAMIN 500 MCG TABLET PO SCH (16:14)
[2022-10-20 20:00] VITALS: BP 108/53
[2022-10-20] MEDS ORDERED: HEPARIN SODIUM, PORCINE 5000 UNITS/1 ML VIAL SQ SCH ×2 (21:00)
[2022-10-20] MEDS: ATORVASTATIN 40 MG TABLET PO SCH (21:38)
[2022-10-20] MEDS: HEPARIN SODIUM, PORCINE 5000 UNITS/1 ML VIAL SQ SCH (21:39)
[2022-10-21] VITALS: BP 109/52
[2022-10-21] MEDS: BLOOD SUGAR DIAGNOSTIC 1 EACH STRIP IN SCH ×6 (01:22→21:18)
[2022-10-21] MEDS: INSULIN REGULAR, HUMAN 100 UNIT/ML 3 ML VIAL SQ PRN ×5 (01:24→17:22)
[2022-10-21 04:00] VITALS: BP 101/53
[2022-10-21] MEDS ORDERED: ALBUMIN 25% 100 ML IV ONE (05:14)
[2022-10-21] MEDS: ALBUMIN 25% 25 GM in PREMIX 1 EA IV PRN (05:42)
[2022-10-21 08:00] VITALS: BP 100/60
[2022-10-21] MEDS: ALLOPURINOL 100 MG TABLET PO SCH ×2 (08:46→17:26)
[2022-10-21] MEDS: PANTOPRAZOLE 40 MG/PACK PACK PO SCH ×2 (08:46→17:26)
[2022-10-21] MEDS: methylPREDNISolone SOD SUCC 125 MG/2ML VIAL IV SCH (08:46)
[2022-10-21] MEDS: METRONIDAZOLE 500 MG TABLET PO SCH ×3 (08:47→21:18)
[2022-10-21] MEDS: FLUCONAZOLE (100 MG) 100 MG TABLET PO SCH (08:47)
[2022-10-21] MEDS: FOLIC ACID 1 MG TABLET PO SCH ×2 (08:47→17:44)
[2022-10-21] MEDS: HEPARIN SODIUM, PORCINE 5000 UNITS/1 ML VIAL SQ SCH ×2 (08:48→21:20)
[2022-10-21] MEDS: PROSOURCE / PROSTAT (PYXIS) 30 ML UDC GT SCH ×2 (08:54→17:29)
[2022-10-21] MEDS: SUCRALFATE 1 G TABLET PO SCH ×4 (08:56→21:18)
[2022-10-21] MEDS: ASPIRIN 300 MG/SUPP.RECT RC SCH (08:58)
[2022-10-21] MEDS: CYANOCOBALAMIN 500 MCG TABLET PO SCH ×2 (09:00→17:26)
[2022-10-21] MEDS: THIAMINE HCL 100 MG TABLET PO SCH ×2 (09:00→17:26)
[2022-10-21] MEDS: METOPROLOL SUCCINATE 25 MG TAB.SR.24H PO SCH (09:00)
[2022-10-21] MEDS: INSULIN GLARGINE, 100 UNIT/ML CARTRIDGE SQ SCH (09:02)
[2022-10-21] MEDS: BREO IH SCH (09:06)
[2022-10-21 10:24] LABS: ABG BASE EXCESS -4.4 mmol/L; ABG OXYGEN SATURATION 94.8 % (92.0-98.5); ABG PCO2 49.5 mmHg (35.0-45.0); ABG PH 7.272 (7.350-7.450); AaDO2 62.2 mmHg; COHb 0.7 % (0.5-1.5); MetHb 0.2 % (0.0-1.5); O2Hb 93.9 % (94.0-97.0); SITE, ABG Right Radial; VENT MODE, BG 2L NC
[2022-10-21 12:00] VITALS: BP 117/58
[2022-10-21 12:23] LABS: CALCIUM, SERUM 6.9 mg/dL (8.5-10.1); CARBON DIOXIDE 24 mmol/L (21-32); CHLORIDE 104 mmol/L (98-107); CREATININE 3.8 mg/dL (0.6-1.3); GLUCOSE 202 mg/dL (74-106); MAGNESIUM 1.7 mg/dL (1.8-2.4); PHOSPHORUS 4.3 mg/dL (2.5-4.9); POTASSIUM 3.4 mmol/L (3.5-5.1); SODIUM SERUM 137 mmol/L (136-145); UREA NITROGEN, BLOOD 76 mg/dL (7-18)
[2022-10-21 13:55] LABS: BASOPHILS % (AUTO) 0.1 % (0.0-2.0); HEMATOCRIT 23 % (39-51); HEMOGLOBIN 7.3 g/dL (13.5-17.5); LYMPHOCYTES # (AUTO) 0.2 K/uL (0.8-4.8); LYMPHOCYTES % (AUTO) 1.6 % (20.0-44.0); MEAN CORPUSCULAR HGB CONC 32 g/dl (31.0-36.0); MEAN CORPUSCULAR VOLUME 101 fL (80-96); MONOCYTES # (AUTO) 0.2 K/uL (0.1-1.30); MONOCYTES % (AUTO) 1.8 % (2.0-12.0); NEUTROPHILS # (AUTO) 11.6 K/uL (1.8-8.9); NEUTROPHILS % (AUTO) 96.5 % (43.0-81.0); PLATELET COUNT (AUTO) 151 K/uL (150-450); RED BLOOD CELL COUNT(AUTO) 2.29 MIL/uL (4.5-6.0)
[2022-10-21] MEDS: LEVOFLOXACIN 500 MG /D5W 100ML 500 MG in PREMIX 1 EA IV SCH (14:41)
[2022-10-21 16:00] VITALS: BP 118/63
[2022-10-21] MEDS: EPOETIN ALFA-EPBX 4,000 UNIT/ML VIAL IV SCH (17:31)
[2022-10-21] MEDS: POTASSIUM CL. PREMIX PERIPHER. 50 ML IV SCH ×3 (18:44→22:42)
[2022-10-21 20:00] VITALS: BP 125/57
[2022-10-21] MEDS: ATORVASTATIN 40 MG TABLET PO SCH (21:18)
[2022-10-22] VITALS: BP 111/56
[2022-10-22] MEDS: BLOOD SUGAR DIAGNOSTIC 1 EACH STRIP IN SCH ×6 (00:42→21:59)
[2022-10-22] MEDS: POTASSIUM CL. PREMIX PERIPHER. 50 ML IV SCH (00:42)
[2022-10-22] MEDS: INSULIN REGULAR, HUMAN 100 UNIT/ML 3 ML VIAL SQ PRN ×6 (01:11→22:00)
[2022-10-22 04:00] VITALS: BP 127/62
[2022-10-22 06:17] LABS: ABG BASE EXCESS -4.8 mmol/L; ABG OXYGEN SATURATION 95.3 % (92.0-98.5); ABG PCO2 44.6 mmHg (35.0-45.0); ABG PH 7.299 (7.350-7.450); ABG PO2 84.1 mmHg (75.0-100.0); AaDO2 62.9 mmHg; COHb 0.6 % (0.5-1.5); MetHb 0.2 % (0.0-1.5); O2Hb 94.5 % (94.0-97.0); SITE, ABG Right Radial; VENT MODE, BG 2L NASAL CANNULA
[2022-10-22] MEDS: SUCRALFATE 1 G TABLET PO SCH ×4 (07:50→21:30)
[2022-10-22 08:00] VITALS: BP 122/59
[2022-10-22 08:05] LABS: BASOPHILS % (AUTO) 0.1 % (0.0-2.0); HEMATOCRIT 23 % (39-51); HEMOGLOBIN 7.5 g/dL (13.5-17.5); LYMPHOCYTES # (AUTO) 0.3 K/uL (0.8-4.8); LYMPHOCYTES % (AUTO) 2.9 % (20.0-44.0); MEAN CORPUSCULAR HGB CONC 32 g/dl (31.0-36.0); MEAN CORPUSCULAR VOLUME 101 fL (80-96); MONOCYTES # (AUTO) 0.4 K/uL (0.1-1.30); MONOCYTES % (AUTO) 4.3 % (2.0-12.0); NEUTROPHILS # (AUTO) 8.4 K/uL (1.8-8.9); NEUTROPHILS % (AUTO) 92.7 % (43.0-81.0); PLATELET COUNT (AUTO) 152 K/uL (150-450); RED BLOOD CELL COUNT(AUTO) 2.33 MIL/uL (4.5-6.0)
[2022-10-22] MEDS: PANTOPRAZOLE 40 MG/PACK PACK PO SCH ×2 (08:19→17:11)
[2022-10-22] MEDS: METOPROLOL SUCCINATE 25 MG TAB.SR.24H PO SCH (08:19)
[2022-10-22] MEDS: methylPREDNISolone SOD SUCC 125 MG/2ML VIAL IV SCH (08:19)
[2022-10-22] MEDS: ALLOPURINOL 100 MG TABLET PO SCH ×2 (08:20→17:11)
[2022-10-22] MEDS: METRONIDAZOLE 500 MG TABLET PO SCH ×2 (08:20→12:35)
[2022-10-22] MEDS: FLUCONAZOLE (100 MG) 100 MG TABLET PO SCH (08:20)
[2022-10-22] MEDS: THIAMINE HCL 100 MG TABLET PO SCH ×2 (08:20→17:11)
[2022-10-22] MEDS: FOLIC ACID 1 MG TABLET PO SCH ×2 (08:20→17:11)
[2022-10-22] MEDS: CYANOCOBALAMIN 500 MCG TABLET PO SCH ×2 (08:20→17:11)
[2022-10-22] MEDS: HEPARIN SODIUM, PORCINE 5000 UNITS/1 ML VIAL SQ SCH ×2 (08:21→21:31)
[2022-10-22] MEDS ORDERED: PROSOURCE / PROSTAT (PYXIS) 30 ML UDC PO SCH (08:23)
[2022-10-22] MEDS: BREO IH SCH (08:33)
[2022-10-22 08:41] LABS: CALCIUM, SERUM 7.4 mg/dL (8.5-10.1); CARBON DIOXIDE 25 mmol/L (21-32); CHLORIDE 100 mmol/L (98-107); GLUCOSE 212 mg/dL (74-106); MAGNESIUM 1.9 mg/dL (1.8-2.4); PHOSPHORUS 5.6 mg/dL (2.5-4.9); POTASSIUM 4.3 mmol/L (3.5-5.1); SODIUM SERUM 133 mmol/L (136-145)
[2022-10-22] MEDS: INSULIN GLARGINE, 100 UNIT/ML CARTRIDGE SQ SCH (08:43)
[2022-10-22] MEDS: ASPIRIN 300 MG/SUPP.RECT RC SCH (08:57)
[2022-10-22 09:26] LABS: UREA NITROGEN, BLOOD 104 mg/dL (7-18)
[2022-10-22 12:07] VITALS: BP 130/64
[2022-10-22] MEDS: LEVOFLOXACIN 500 MG /D5W 100ML 500 MG in PREMIX 1 EA IV SCH (13:13)
[2022-10-22] MEDS: LEVOFLOXACIN (250MG) 250 MG TABLET PO SCH (15:01)
[2022-10-22 16:00] VITALS: BP 135/64
[2022-10-22 20:00] VITALS: BP 103/55
[2022-10-22] MEDS: ATORVASTATIN 40 MG TABLET PO SCH (21:30)
[2022-10-23] VITALS: BP 121/78
[2022-10-23] MEDS: BLOOD SUGAR DIAGNOSTIC 1 EACH STRIP IN SCH ×6 (01:25→22:26)
[2022-10-23] MEDS: INSULIN REGULAR, HUMAN 100 UNIT/ML 3 ML VIAL SQ PRN ×6 (01:26→21:43)
[2022-10-23 04:00] VITALS: BP 109/66
[2022-10-23 07:53] LABS: BASOPHILS % (AUTO) 0.5 % (0.0-2.0); HEMATOCRIT 22 % (39-51); HEMOGLOBIN 7.1 g/dL (13.5-17.5); LYMPHOCYTES # (AUTO) 0.4 K/uL (0.8-4.8); LYMPHOCYTES % (AUTO) 4.1 % (20.0-44.0); MEAN CORPUSCULAR HGB CONC 32 g/dl (31.0-36.0); MEAN CORPUSCULAR VOLUME 100 fL (80-96); MONOCYTES # (AUTO) 0.6 K/uL (0.1-1.30); MONOCYTES % (AUTO) 6.6 % (2.0-12.0); NEUTROPHILS # (AUTO) 7.9 K/uL (1.8-8.9); NEUTROPHILS % (AUTO) 88.8 % (43.0-81.0); PLATELET COUNT (AUTO) 145 K/uL (150-450); RED BLOOD CELL COUNT(AUTO) 2.22 MIL/uL (4.5-6.0); WHITE BLOOD COUNT (AUTO) 8.9 K/uL (4.3-11.0)
[2022-10-23 08:00] VITALS: BP 108/54
[2022-10-23 08:07] LABS: ALBUMIN 2.6 g/dL (3.4-5.0); CALCIUM, SERUM 7.5 mg/dL (8.5-10.1); CARBON DIOXIDE 23 mmol/L (21-32); CHLORIDE 101 mmol/L (98-107); CREATININE 5.6 mg/dL (0.6-1.3); GLUCOSE 181 mg/dL (74-106); MAGNESIUM 1.9 mg/dL (1.8-2.4); PHOSPHORUS 6.2 mg/dL (2.5-4.9); SODIUM SERUM 134 mmol/L (136-145); TOTAL PROTEIN, SERUM 4.3 g/dL (6.4-8.2)
[2022-10-23 08:33] LABS: UREA NITROGEN, BLOOD 127 mg/dL (7-18)
[2022-10-23] MEDS: PROSOURCE / PROSTAT (PYXIS) 30 ML UDC PO SCH ×3 (09:00→17:27)
[2022-10-23] MEDS: METOPROLOL SUCCINATE 25 MG TAB.SR.24H PO SCH (09:00)
[2022-10-23] MEDS: HEPARIN SODIUM, PORCINE 5000 UNITS/1 ML VIAL SQ SCH ×2 (09:00→21:18)
[2022-10-23] MEDS: THERAHONEY GEL 1.5 OZ TUBE TP SCH (09:00)
[2022-10-23] MEDS: SUCRALFATE 1 G TABLET PO SCH ×4 (10:04→21:17)
[2022-10-23] MEDS: BREO IH SCH (10:05)
[2022-10-23] MEDS: PANTOPRAZOLE 40 MG/PACK PACK PO SCH ×2 (10:05→17:26)
[2022-10-23] MEDS: ASPIRIN 300 MG/SUPP.RECT RC SCH (10:05)
[2022-10-23] MEDS: CYANOCOBALAMIN 500 MCG TABLET PO SCH ×2 (10:05→17:26)
[2022-10-23] MEDS: methylPREDNISolone SOD SUCC 125 MG/2ML VIAL IV SCH (10:05)
[2022-10-23] MEDS: ALLOPURINOL 100 MG TABLET PO SCH ×2 (10:06→17:26)
[2022-10-23] MEDS: FOLIC ACID 1 MG TABLET PO SCH ×2 (10:06→17:26)
[2022-10-23] MEDS: THIAMINE HCL 100 MG TABLET PO SCH ×2 (10:06→17:26)
[2022-10-23] MEDS: ALBUMIN 25% 25 GM in PREMIX 1 EA IV PRN (10:17)
[2022-10-23] MEDS: INSULIN GLARGINE, 100 UNIT/ML CARTRIDGE SQ SCH (10:22)
[2022-10-23 12:00] VITALS: BP 124/53
[2022-10-23] MEDS: LEVOFLOXACIN (250MG) 250 MG TABLET PO SCH (14:42)
[2022-10-23 16:00] VITALS: BP 112/44
[2022-10-23] MEDS: EPOETIN ALFA-EPBX 4,000 UNIT/ML VIAL IV SCH (17:26)
[2022-10-23 20:00] VITALS: BP 105/44
[2022-10-23] MEDS: ATORVASTATIN 40 MG TABLET PO SCH (21:16)
[2022-10-24] MEDS: BLOOD SUGAR DIAGNOSTIC 1 EACH STRIP IN SCH ×6 (00:53→21:33)
[2022-10-24 02:00] VITALS: BP 116/55
[2022-10-24 04:00] VITALS: BP 121/56
[2022-10-24 07:11] LABS: BASOPHILS % (AUTO) 0.2 % (0.0-2.0); EOSINOPHILS % (AUTO) 0.4 % (0.0-6.0); HEMATOCRIT 23 % (39-51); HEMOGLOBIN 7.5 g/dL (13.5-17.5); LYMPHOCYTES # (AUTO) 0.5 K/uL (0.8-4.8); LYMPHOCYTES % (AUTO) 6.1 % (20.0-44.0); MEAN CORPUSCULAR HGB CONC 33 g/dl (31.0-36.0); MEAN CORPUSCULAR VOLUME 100 fL (80-96); MONOCYTES # (AUTO) 0.6 K/uL (0.1-1.30); MONOCYTES % (AUTO) 7.4 % (2.0-12.0); NEUTROPHILS # (AUTO) 7.2 K/uL (1.8-8.9); NEUTROPHILS % (AUTO) 85.9 % (43.0-81.0); PLATELET COUNT (AUTO) 136 K/uL (150-450); RED BLOOD CELL COUNT(AUTO) 2.31 MIL/uL (4.5-6.0); WHITE BLOOD COUNT (AUTO) 8.3 K/uL (4.3-11.0)
[2022-10-24 07:41] LABS: CALCIUM, SERUM 7.6 mg/dL (8.5-10.1); CARBON DIOXIDE 28 mmol/L (21-32); CHLORIDE 104 mmol/L (98-107); CREATININE 4.8 mg/dL (0.6-1.3); GLUCOSE 127 mg/dL (74-106); POTASSIUM 3.9 mmol/L (3.5-5.1); SODIUM SERUM 139 mmol/L (136-145)
[2022-10-24 07:45] LABS: UREA NITROGEN, BLOOD 99 mg/dL (7-18)
[2022-10-24 08:00] VITALS: BP 109/70
[2022-10-24] MEDS ORDERED: predniSONE 20 MG TABLET PO SCH (09:00)
[2022-10-24] MEDS: PANTOPRAZOLE 40 MG/PACK PACK PO SCH ×2 (09:09→16:41)
[2022-10-24] MEDS: METOPROLOL SUCCINATE 25 MG TAB.SR.24H PO SCH (09:10)
[2022-10-24] MEDS: HEPARIN SODIUM, PORCINE 5000 UNITS/1 ML VIAL SQ SCH ×2 (09:11→21:00)
[2022-10-24] MEDS: FOLIC ACID 1 MG TABLET PO SCH ×2 (09:12→16:42)
[2022-10-24] MEDS: methylPREDNISolone SOD SUCC 40 MG/ML VIAL IV SCH (09:12)
[2022-10-24] MEDS: CYANOCOBALAMIN 500 MCG TABLET PO SCH ×2 (09:12→16:42)
[2022-10-24] MEDS: THIAMINE HCL 100 MG TABLET PO SCH ×2 (09:12→16:42)
[2022-10-24] MEDS: ALLOPURINOL 100 MG TABLET PO SCH ×2 (09:12→16:42)
[2022-10-24] MEDS: PROSOURCE / PROSTAT (PYXIS) 30 ML UDC PO SCH ×3 (09:13→16:44)
[2022-10-24] MEDS: ASPIRIN 300 MG/SUPP.RECT RC SCH (09:13)
[2022-10-24] MEDS: THERAHONEY GEL 1.5 OZ TUBE TP SCH (09:13)
[2022-10-24] MEDS: BREO IH SCH (09:14)
[2022-10-24] MEDS: INSULIN GLARGINE, 100 UNIT/ML CARTRIDGE SQ SCH (09:15)
[2022-10-24] MEDS: SUCRALFATE 1 G TABLET PO SCH ×4 (09:17→21:26)
[2022-10-24 12:00] VITALS: BP 113/55
[2022-10-24] MEDS: INSULIN REGULAR, HUMAN 100 UNIT/ML 3 ML VIAL SQ PRN ×3 (12:25→21:28)
[2022-10-24] MEDS: LEVOFLOXACIN (250MG) 250 MG TABLET PO SCH (14:12)
[2022-10-24 16:00] VITALS: BP 121/59
[2022-10-24 20:00] VITALS: BP 143/60
[2022-10-24] MEDS: ATORVASTATIN 40 MG TABLET PO SCH (21:26)
[2022-10-25] VITALS: BP 132/72
[2022-10-25] MEDS: BLOOD SUGAR DIAGNOSTIC 1 EACH STRIP IN SCH ×6 (00:01→21:19)
[2022-10-25] MEDS: INSULIN REGULAR, HUMAN 100 UNIT/ML 3 ML VIAL SQ PRN ×5 (00:04→21:24)
[2022-10-25 04:00] VITALS: BP 119/81
[2022-10-25 07:46] LABS: EOSINOPHILS % (AUTO) 0.2 % (0.0-6.0); HEMATOCRIT 22 % (39-51); HEMOGLOBIN 7.3 g/dL (13.5-17.5); LYMPHOCYTES # (AUTO) 0.4 K/uL (0.8-4.8); MEAN CORPUSCULAR HGB CONC 33 g/dl (31.0-36.0); MEAN CORPUSCULAR VOLUME 100 fL (80-96); MONOCYTES # (AUTO) 0.5 K/uL (0.1-1.30); NEUTROPHILS # (AUTO) 5.8 K/uL (1.8-8.9); NEUTROPHILS % (AUTO) 86.8 % (43.0-81.0); PLATELET COUNT (AUTO) 118 K/uL (150-450); RED BLOOD CELL COUNT(AUTO) 2.25 MIL/uL (4.5-6.0); WHITE BLOOD COUNT (AUTO) 6.7 K/uL (4.3-11.0)
[2022-10-25 07:59] LABS: CALCIUM, SERUM 7.4 mg/dL (8.5-10.1); CARBON DIOXIDE 29 mmol/L (21-32); CHLORIDE 108 mmol/L (98-107); CREATININE 4.2 mg/dL (0.6-1.3); GLUCOSE 125 mg/dL (74-106); PHOSPHORUS 5.1 mg/dL (2.5-4.9); POTASSIUM 4.1 mmol/L (3.5-5.1); SODIUM SERUM 143 mmol/L (136-145)
[2022-10-25 08:00] VITALS: BP 121/54
[2022-10-25 08:00] LABS: UREA NITROGEN, BLOOD 85 mg/dL (7-18)
[2022-10-25] MEDS: SUCRALFATE 1 G TABLET PO SCH ×4 (08:42→21:19)
[2022-10-25] MEDS: HEPARIN SODIUM, PORCINE 5000 UNITS/1 ML VIAL SQ SCH ×2 (09:00→21:00)
[2022-10-25] MEDS: FOLIC ACID 1 MG TABLET PO SCH ×2 (09:10→17:07)
[2022-10-25] MEDS: THIAMINE HCL 100 MG TABLET PO SCH ×2 (09:10→17:06)
[2022-10-25] MEDS: CYANOCOBALAMIN 500 MCG TABLET PO SCH ×2 (09:10→17:06)
[2022-10-25] MEDS: ALLOPURINOL 100 MG TABLET PO SCH ×2 (09:10→17:07)
[2022-10-25] MEDS: PANTOPRAZOLE 40 MG/PACK PACK PO SCH ×2 (09:10→17:07)
[2022-10-25] MEDS: methylPREDNISolone SOD SUCC 40 MG/ML VIAL IV SCH (09:11)
[2022-10-25] MEDS: METOPROLOL SUCCINATE 25 MG TAB.SR.24H PO SCH (09:11)
[2022-10-25] MEDS: THERAHONEY GEL 1.5 OZ TUBE TP SCH (09:12)
[2022-10-25] MEDS: INSULIN GLARGINE, 100 UNIT/ML CARTRIDGE SQ SCH (09:14)
[2022-10-25] MEDS: PROSOURCE / PROSTAT (PYXIS) 30 ML UDC PO SCH ×3 (10:09→17:07)
[2022-10-25] MEDS: BREO IH SCH (10:09)
[2022-10-25] MEDS: ASPIRIN 300 MG/SUPP.RECT RC SCH (10:37)
[2022-10-25 12:00] VITALS: BP 104/60
[2022-10-25] MEDS ORDERED: ANESTHESIA TRAY IN PYXIS 1 EA TRAY MC ONE (14:58)
[2022-10-25] MEDS: LEVOFLOXACIN (250MG) 250 MG TABLET PO SCH (15:09)
[2022-10-25 16:00] VITALS: BP 113/58
[2022-10-25] MEDS: EPOETIN ALFA-EPBX 4,000 UNIT/ML VIAL IV SCH (18:18)
[2022-10-25 20:30] VITALS: BP 108/57
[2022-10-25] MEDS: ATORVASTATIN 40 MG TABLET PO SCH (21:19)
[2022-10-26] VITALS: BP 112/69
[2022-10-26] MEDS: BLOOD SUGAR DIAGNOSTIC 1 EACH STRIP IN SCH ×6 (00:43→21:28)
[2022-10-26] MEDS: INSULIN REGULAR, HUMAN 100 UNIT/ML 3 ML VIAL SQ PRN ×6 (00:43→21:32)
[2022-10-26 04:30] VITALS: BP 114/70
[2022-10-26 07:50] LABS: CALCIUM, SERUM 7.5 mg/dL (8.5-10.1); CARBON DIOXIDE 29 mmol/L (21-32); CHLORIDE 107 mmol/L (98-107); CREATININE 3.9 mg/dL (0.6-1.3); GLUCOSE 200 mg/dL (74-106); POTASSIUM 3.6 mmol/L (3.5-5.1); SODIUM SERUM 143 mmol/L (136-145)
[2022-10-26 07:52] LABS: UREA NITROGEN, BLOOD 83 mg/dL (7-18)
[2022-10-26 08:00] VITALS: BP 119/52
[2022-10-26] MEDS: ASPIRIN 300 MG/SUPP.RECT RC SCH (08:09)
[2022-10-26] MEDS: SUCRALFATE 1 G TABLET PO SCH ×4 (08:09→21:22)
[2022-10-26] MEDS: CYANOCOBALAMIN 500 MCG TABLET PO SCH ×2 (08:09→16:37)
[2022-10-26] MEDS: PROSOURCE / PROSTAT (PYXIS) 30 ML UDC PO SCH ×3 (08:09→16:38)
[2022-10-26] MEDS: THIAMINE HCL 100 MG TABLET PO SCH ×2 (08:09→16:37)
[2022-10-26] MEDS: ALLOPURINOL 100 MG TABLET PO SCH ×2 (08:09→16:37)
[2022-10-26] MEDS: PANTOPRAZOLE 40 MG/PACK PACK PO SCH ×2 (08:09→16:37)
[2022-10-26] MEDS: FOLIC ACID 1 MG TABLET PO SCH ×2 (08:09→16:37)
[2022-10-26] MEDS: THERAHONEY GEL 1.5 OZ TUBE TP SCH (08:10)
[2022-10-26] MEDS: methylPREDNISolone SOD SUCC 40 MG/ML VIAL IV SCH (08:19)
[2022-10-26] MEDS: INSULIN GLARGINE, 100 UNIT/ML CARTRIDGE SQ SCH (09:00)
[2022-10-26] MEDS: METOPROLOL SUCCINATE 25 MG TAB.SR.24H PO SCH (09:00)
[2022-10-26] MEDS: HEPARIN SODIUM, PORCINE 5000 UNITS/1 ML VIAL SQ SCH ×2 (09:00→21:00)
[2022-10-26] MEDS ORDERED: LIDOCAINE 1% INJ 50 ML MDV IJ ONE (09:43)
[2022-10-26] MEDS ORDERED: HEPARIN SODIUM, PORCINE 1,000 UNIT/ML VIAL ONE (09:43)
[2022-10-26] MEDS: BREO IH SCH (10:03)
[2022-10-26] MEDS ORDERED: FENTANYL PF 100MCG/2ML AMPUL ONE (10:17)
[2022-10-26] MEDS: LEVOFLOXACIN (250MG) 250 MG TABLET PO SCH (14:00)
[2022-10-26] MEDS ORDERED: DESFLURANE 240 ML BOTTLE IH ONE (14:17)
[2022-10-26] MEDS ORDERED: SEVOFLURANE 250 ML BOTTLE IH ONE (14:17)
[2022-10-26 16:00] VITALS: BP 114/65
[2022-10-26] MEDS: ATORVASTATIN 40 MG TABLET PO SCH (21:22)
[2022-10-27] MEDS: BLOOD SUGAR DIAGNOSTIC 1 EACH STRIP IN SCH ×6 (01:24→21:21)
[2022-10-27] MEDS: INSULIN REGULAR, HUMAN 100 UNIT/ML 3 ML VIAL SQ PRN ×5 (01:27→21:27)
[2022-10-27 04:00] VITALS: BP 121/63
[2022-10-27 07:06] LABS: EOSINOPHILS % (AUTO) 0.5 % (0.0-6.0); HEMATOCRIT 25 % (39-51); HEMOGLOBIN 7.8 g/dL (13.5-17.5); LYMPHOCYTES # (AUTO) 0.6 K/uL (0.8-4.8); LYMPHOCYTES % (AUTO) 9.7 % (20.0-44.0); MEAN CORPUSCULAR HGB CONC 32 g/dl (31.0-36.0); MEAN CORPUSCULAR VOLUME 102 fL (80-96); MONOCYTES # (AUTO) 0.4 K/uL (0.1-1.30); MONOCYTES % (AUTO) 7.4 % (2.0-12.0); NEUTROPHILS # (AUTO) 4.9 K/uL (1.8-8.9); NEUTROPHILS % (AUTO) 82.4 % (43.0-81.0); PLATELET COUNT (AUTO) 121 K/uL (150-450); RED BLOOD CELL COUNT(AUTO) 2.44 MIL/uL (4.5-6.0)
[2022-10-27 07:21] LABS: CALCIUM, SERUM 7.4 mg/dL (8.5-10.1); CARBON DIOXIDE 26 mmol/L (21-32); CHLORIDE 110 mmol/L (98-107); CREATININE 3.6 mg/dL (0.6-1.3); GLUCOSE 158 mg/dL (74-106); PHOSPHORUS 5.3 mg/dL (2.5-4.9); POTASSIUM 3.4 mmol/L (3.5-5.1); SODIUM SERUM 144 mmol/L (136-145); UREA NITROGEN, BLOOD 71 mg/dL (7-18)
[2022-10-27] MEDS: SUCRALFATE 1 G TABLET PO SCH ×4 (07:55→21:11)
[2022-10-27] MEDS: THERAHONEY GEL 1.5 OZ TUBE TP SCH (09:53)
[2022-10-27] MEDS: BREO IH SCH (09:53)
[2022-10-27] MEDS: PANTOPRAZOLE 40 MG/PACK PACK PO SCH ×2 (09:53→16:54)
[2022-10-27] MEDS: THIAMINE HCL 100 MG TABLET PO SCH ×2 (09:54→16:54)
[2022-10-27] MEDS: METOPROLOL SUCCINATE 25 MG TAB.SR.24H PO SCH (09:54)
[2022-10-27] MEDS: CYANOCOBALAMIN 500 MCG TABLET PO SCH ×2 (09:54→16:54)
[2022-10-27] MEDS: FOLIC ACID 1 MG TABLET PO SCH ×2 (09:55→16:54)
[2022-10-27] MEDS: predniSONE 20 MG TABLET PO SCH (09:55)
[2022-10-27] MEDS: ALLOPURINOL 100 MG TABLET PO SCH ×2 (09:55→16:55)
[2022-10-27] MEDS: PROSOURCE / PROSTAT (PYXIS) 30 ML UDC PO SCH ×3 (09:56→16:55)
[2022-10-27] MEDS: INSULIN GLARGINE, 100 UNIT/ML CARTRIDGE SQ SCH (10:08)
[2022-10-27] MEDS: HEPARIN SODIUM, PORCINE 5000 UNITS/1 ML VIAL SQ SCH (10:10)
[2022-10-27] MEDS: ASPIRIN 300 MG/SUPP.RECT RC SCH (10:15)
[2022-10-27 12:00] VITALS: BP 115/70
[2022-10-27] MEDS ORDERED: PRED20TA PO (12:36)
[2022-10-27] MEDS ORDERED: INSU100V28 SQ (12:36)
[2022-10-27] MEDS ORDERED: Blood Sugar Diagnostic IN (12:36)
[2022-10-27] MEDS ORDERED: Prosource PO (12:36)
[2022-10-27] MEDS ORDERED: MAGN400O6 PO (12:36)
[2022-10-27] MEDS ORDERED: ASPI300S RC (12:36)
[2022-10-27] MEDS ORDERED: FERR325T28 PO (12:36)
[2022-10-27] MEDS ORDERED: FLUT1BLS IH (12:36)
[2022-10-27] MEDS ORDERED: Thiamine HCL PO (12:36)
[2022-10-27] MEDS ORDERED: EPOE40007 IV (12:36)
[2022-10-27] MEDS ORDERED: ALLO100T25 PO (12:36)
[2022-10-27] MEDS ORDERED: ACET325T53 PO (12:36)
[2022-10-27] MEDS ORDERED: PANT40SU2 PO (12:36)
[2022-10-27] MEDS ORDERED: ONDA4VIA23 PO (12:36)
[2022-10-27] MEDS ORDERED: DEXT50DI8 IV (12:36)
[2022-10-27] MEDS ORDERED: CYAN500T64 PO (12:36)
[2022-10-27] MEDS ORDERED: INSU100I30 SQ (12:36)
[2022-10-27] MEDS ORDERED: Z Guard Remedy TP (12:36)
[2022-10-27] MEDS ORDERED: METO25TA4 PO (12:36)
[2022-10-27] MEDS ORDERED: HEPA50008 SQ (12:36)
[2022-10-27] MEDS ORDERED: COLL30OI TP (12:36)
[2022-10-27] MEDS ORDERED: SUCR1TAB31 PO (12:36)
[2022-10-27] MEDS ORDERED: Folic Acid PO (12:36)
[2022-10-27] MEDS ORDERED: ATOR40TA PO (12:36)
[2022-10-27] MEDS: FERROUS SULFATE (325 MG) 325 MG/TAB TABLET PO SCH ×2 (13:20→16:54)
[2022-10-27] MEDS: LEVOFLOXACIN (250MG) 250 MG TABLET PO SCH (13:22)
[2022-10-27 20:00] VITALS: BP 114/50
[2022-10-27] MEDS: ATORVASTATIN 40 MG TABLET PO SCH (21:11)
[2022-10-28] MEDS: BLOOD SUGAR DIAGNOSTIC 1 EACH STRIP IN SCH ×4 (01:42→12:47)
[2022-10-28] MEDS: INSULIN REGULAR, HUMAN 100 UNIT/ML 3 ML VIAL SQ PRN ×4 (01:45→13:22)
[2022-10-28 04:00] VITALS: BP 110/53
[2022-10-28 05:39] LABS: BASOPHILS % (AUTO) 0.1 % (0.0-2.0); EOSINOPHILS % (AUTO) 0.9 % (0.0-6.0); HEMATOCRIT 23 % (39-51); HEMOGLOBIN 7.3 g/dL (13.5-17.5); LYMPHOCYTES # (AUTO) 0.5 K/uL (0.8-4.8); LYMPHOCYTES % (AUTO) 8.5 % (20.0-44.0); MEAN CORPUSCULAR HGB CONC 32 g/dl (31.0-36.0); MEAN CORPUSCULAR VOLUME 102 fL (80-96); MONOCYTES # (AUTO) 0.5 K/uL (0.1-1.30); MONOCYTES % (AUTO) 7.3 % (2.0-12.0); NEUTROPHILS # (AUTO) 5.1 K/uL (1.8-8.9); NEUTROPHILS % (AUTO) 83.2 % (43.0-81.0); PLATELET COUNT (AUTO) 119 K/uL (150-450); RED BLOOD CELL COUNT(AUTO) 2.28 MIL/uL (4.5-6.0); WHITE BLOOD COUNT (AUTO) 6.2 K/uL (4.3-11.0)
[2022-10-28 06:10] LABS: ALBUMIN 2.3 g/dL (3.4-5.0); CALCIUM, SERUM 7.2 mg/dL (8.5-10.1); CARBON DIOXIDE 28 mmol/L (21-32); CHLORIDE 111 mmol/L (98-107); CREATININE 3.3 mg/dL (0.6-1.3); GLUCOSE 177 mg/dL (74-106); MAGNESIUM 1.9 mg/dL (1.8-2.4); PHOSPHORUS 5.1 mg/dL (2.5-4.9); POTASSIUM 3.5 mmol/L (3.5-5.1); SODIUM SERUM 144 mmol/L (136-145); TOTAL PROTEIN, SERUM 4.2 g/dL (6.4-8.2); UREA NITROGEN, BLOOD 56 mg/dL (7-18)
[2022-10-28] MEDS: FERROUS SULFATE (325 MG) 325 MG/TAB TABLET PO SCH (08:30)
[2022-10-28 08:31] VITALS: BP 99/55
[2022-10-28] MEDS: METOPROLOL SUCCINATE 25 MG TAB.SR.24H PO SCH (08:31)
[2022-10-28] MEDS: SUCRALFATE 1 G TABLET PO SCH ×2 (08:31→11:15)
[2022-10-28] MEDS: THIAMINE HCL 100 MG TABLET PO SCH (08:31)
[2022-10-28] MEDS: PANTOPRAZOLE 40 MG/PACK PACK PO SCH (08:32)
[2022-10-28] MEDS: predniSONE 20 MG TABLET PO SCH (08:32)
[2022-10-28] MEDS: ALLOPURINOL 100 MG TABLET PO SCH (08:32)
[2022-10-28] MEDS: CYANOCOBALAMIN 500 MCG TABLET PO SCH (08:32)
[2022-10-28] MEDS: FOLIC ACID 1 MG TABLET PO SCH (08:32)
[2022-10-28] MEDS: PROSOURCE / PROSTAT (PYXIS) 30 ML UDC PO SCH ×2 (08:33→12:49)
[2022-10-28] MEDS: BREO IH SCH (08:34)
[2022-10-28] MEDS: THERAHONEY GEL 1.5 OZ TUBE TP SCH (08:34)
[2022-10-28] MEDS: INSULIN GLARGINE, 100 UNIT/ML CARTRIDGE SQ SCH (09:12)
[2022-10-28] MEDS: ASPIRIN 300 MG/SUPP.RECT RC SCH (11:17)
[2022-10-28] MEDS ORDERED: LIDOCAINE 2% JEL 5 ML TUBE MC ONE (12:30)
[2022-10-28] MEDS ORDERED: LIDOCAINE 2% 20 ML MDV IJ ONE (13:00)
[2022-10-28] MEDS ORDERED: LIDOCAINE SOLN 4% 50 ML BOTTLE TP PRN (14:00)
== END 2022-10-28 14:49 | DRG 853 ==
LOC: TELE1 02:21 → ICU 16:13 → TELE1 10-18 23:02 → MEDSG1 10-26 15:26
PROVIDERS: ADMIT Internal Medicine; ATTEND Internal Medicine
PROC: 5A1D70Z Performance of Urinary Filtration, Intermittent, Less than 6 Hours Per Day (ICD-10-PCS; principal; 2022-09-30)
PROC: 05H533Z Insertion of Infusion Device into Right Subclavian Vein, Percutaneous Approach (ICD-10-PCS; 2022-10-03)
PROC: B546ZZA Ultrasonography of Right Subclavian Vein, Guidance (ICD-10-PCS; 2022-10-03)
PROC: 30233N1 Transfusion of Nonautologous Red Blood Cells into Peripheral Vein, Percutaneous Approach (ICD-10-PCS; 2022-10-04)
PROC: 0DB68ZX Excision of Stomach, Via Natural or Artificial Opening Endoscopic, Diagnostic (ICD-10-PCS; 2022-10-13)
PROC: 0DJD8ZZ Inspection of Lower Intestinal Tract, Via Natural or Artificial Opening Endoscopic (ICD-10-PCS; 2022-10-13)
PROC: 07DR3ZX Extraction of Iliac Bone Marrow, Percutaneous Approach, Diagnostic (ICD-10-PCS; 2022-10-17)
PROC: 0JB70ZZ Excision of Back Subcutaneous Tissue and Fascia, Open Approach (ICD-10-PCS; 2022-10-24)
PROC: 0JH63XZ Insertion of Tunneled Vascular Access Device into Chest Subcutaneous Tissue and Fascia, Percutaneous Approach (ICD-10-PCS; 2022-10-26)
PROC: 02HV33Z Insertion of Infusion Device into Superior Vena Cava, Percutaneous Approach (ICD-10-PCS; 2022-10-26)
PROC: B518YZA Fluoroscopy of Superior Vena Cava using Other Contrast, Guidance (ICD-10-PCS; 2022-10-26)
PROC: 0JB70ZZ Excision of Back Subcutaneous Tissue and Fascia, Open Approach (ICD-10-PCS; 2022-10-28)
PROC: 06HY33Z Insertion of Infusion Device into Lower Vein, Percutaneous Approach (ICD-10-PCS; 2022-10-28)
DX: A41.9 Sepsis, unspecified organism (principal); G93.41 Metabolic encephalopathy; L89.153 Pressure ulcer of sacral region, stage 3; J69.0 Pneumonitis due to inhalation of food and vomit; N17.0 Acute kidney failure with tubular necrosis; J96.01 Acute respiratory failure with hypoxia; I21.A1 Myocardial infarction type 2; D62 Acute posthemorrhagic anemia; D58.9 Hereditary hemolytic anemia, unspecified; J84.9 Interstitial pulmonary disease, unspecified; I50.32 Chronic diastolic (congestive) heart failure; I13.0 Hypertensive heart and chronic kidney disease with heart failure and stage 1 through stage 4 chronic kidney disease, or unspecified chronic kidney disease; F05 Delirium due to known physiological condition; J98.11 Atelectasis; J90 Pleural effusion, not elsewhere classified; R57.9 Shock, unspecified; Z20.822 Contact with and (suspected) exposure to COVID-19; D47.2 Monoclonal gammopathy; D63.1 Anemia in chronic kidney disease; D69.6 Thrombocytopenia, unspecified; E86.0 Dehydration; K21.9 Gastro-esophageal reflux disease without esophagitis; E78.5 Hyperlipidemia, unspecified; Z95.1 Presence of aortocoronary bypass graft; Z87.891 Personal history of nicotine dependence; Z88.0 Allergy status to penicillin; Z85.01 Personal history of malignant neoplasm of esophagus; Z92.3 Personal history of irradiation; Z79.899 Other long term (current) drug therapy; Z92.21 Personal history of antineoplastic chemotherapy; M10.9 Gout, unspecified; K57.90 Diverticulosis of intestine, part unspecified, without perforation or abscess without bleeding; I25.10 Atherosclerotic heart disease of native coronary artery without angina pectoris; I25.2 Old myocardial infarction; E83.39 Other disorders of phosphorus metabolism; E87.5 Hyperkalemia; N18.9 Chronic kidney disease, unspecified; Z79.82 Long term (current) use of aspirin; D63.8 Anemia in other chronic diseases classified elsewhere; K26.9 Duodenal ulcer, unspecified as acute or chronic, without hemorrhage or perforation; E11.22 Type 2 diabetes mellitus with diabetic chronic kidney disease; J44.9 Chronic obstructive pulmonary disease, unspecified; D53.9 Nutritional anemia, unspecified; K64.8 Other hemorrhoids; K29.50 Unspecified chronic gastritis without bleeding
CPT/HCPCS: 36415; 36600; 71045-TC; 71250-TC; 76770-TC; 80048-TC; 80053-TC; 80076-TC; 80202-TC; 82040-TC; 82140-TC; 82272-TC; 82607-TC; 82728-TC; 82784; 82803-TC; 82962-TC; 83010; 83540-TC; 83605-TC; 83615-TC; 83735-TC; 83880; 84100-TC; 84132-TC; 84155; 84155-TC; 84165; 84295-TC; 84484-TC; 85025-TC; 85045-TC; 85396; 85610-TC; 85730-TC; 86334; 86704; 86705; 86706; 86803; 86850; 86850-TC; 86870; 86880; 86880-TC; 86885; 86900; 86901; 87040-TC; 87081-TC; 87340; 88305-TC; 88313-TC; 88342; 90935-TC; 92526; 92611-TC; 93971-TC; 97110-TC; 97112-TC; 97116-TC; 97530-TC; A4216; A4223; A4349; A6253; A6403; C1750; C1757; C1769; C1894; C9113; G0378; J0696; J0885; J1450; J1644; J1815; J1956; J2270; J2543; J2704; J2916; J2920; J2930; J3010; J3370; J3480; J3490; J7030; J7042; J7050; J7060; J7070; J7512; P9016; P9047

== ENCOUNTER 2022-11-06 19:33 | Inpatient (IN) | payer MEDICARE, BC ==
[~2022-11-06] VITALS: Ht 190.5 cm; Wt 102.1 kg
[~2022-11-06 19:33] MED LIST changes: +ACET325T53 PO; +ALLO100T25 PO; -AMLO-102 PO; +ASPI300S RC; +Blood Sugar Diagnostic IN; +COLL30OI TP; +CYAN-51 PO; +CYAN500T64 PO; +DEXT50DI8 IV; +EMPA1TAB9 PO; +EPOE40007 IV; +FERR325T24 PO; +FERR325T28 PO; +FLUT1BLS IH; +FLUT1BLS13 IH; +FURO-144 PO; +Folic Acid PO; +HEPA50008 SQ; -INSU100I19 SQ; +INSU100I30 SQ; +INSU100V10 SQ; -INSU100V11 SQ; +INSU100V28 SQ; +LEVO75TA7 PO; +MAGN400O6 PO; -METF-440 PO; +METO25TA4 PO; +ONDA4VIA23 PO; +PANT40SU2 PO; +PANT40TA49 PO; +PRED20TA PO; +Prosource PO; +SUCR1TAB31 PO; +Thiamine HCL PO; +Z Guard Remedy TP
--- NOTE | 2022-11-06 19:45 | NUR ---
PT ARRIVED FROM [facility] FOR DESATURATION 80% ON 2L. BREATHING ON A NRB 15L SATTING 96% HE IS DIALYSIS PATIENT GOT DIALIZED YESTERDAY. RALES ON AUSCULTATION BILATERALLY AT THE BASE OF THE LUNGS. LEGS/ FEET ARE EDEMATOUS +3. EKG DONE X RAY DONE LABS DRAWN 20G R HAND DRESSED AND FLUSHING WELL.
--- NOTE | 2022-11-06 19:45 | NUR ---
CAME WITH IV AKIRA ON RIGHT HAND G20
--- NOTE | 2022-11-06 20:04 | NUR ---
TERRAZZO POLISHER AT BEDSIDE
--- NOTE | 2022-11-06 20:08 | NUR ---
COVID SWAB DONE AND SENT TO LAB
[2022-11-06 20:35] LABS: BASOPHILS % (AUTO) 0.2 % (0.0-2.0); EOSINOPHILS % (AUTO) 0.7 % (0.0-6.0); HEMATOCRIT 26 % (39-51); HEMOGLOBIN 7.9 g/dL (13.5-17.5); LYMPHOCYTES # (AUTO) 0.7 K/uL (0.8-4.8); LYMPHOCYTES % (AUTO) 10.7 % (20.0-44.0); MEAN CORPUSCULAR HGB CONC 31 g/dl (31.0-36.0); MEAN CORPUSCULAR VOLUME 106 fL (80-96); MONOCYTES # (AUTO) 0.4 K/uL (0.1-1.30); MONOCYTES % (AUTO) 6.4 % (2.0-12.0); NEUTROPHILS # (AUTO) 5.3 K/uL (1.8-8.9); PLATELET COUNT (AUTO) 127 K/uL (150-450); RED BLOOD CELL COUNT(AUTO) 2.41 MIL/uL (4.5-6.0); WHITE BLOOD COUNT (AUTO) 6.5 K/uL (4.3-11.0)
[2022-11-06 21:08] LABS: ALANINE AMINOTRANSFERASE 28 U/L (12-78); ALBUMIN 2.4 g/dL (3.4-5.0); ALKALINE PHOSPHATASE 166 U/L (46-116); ASPARTATE AMINOTRANSFERASE 18 U/L (15-37); BILIRUBIN,DIRECT 0.1 mg/dL (0.0-0.2); BILIRUBIN,TOTAL 0.4 mg/dL (0.2-1.0); CALCIUM, SERUM 7.7 mg/dL (8.5-10.1); CHLORIDE 105 mmol/L (98-107); CREATININE 2.9 mg/dL (0.6-1.3); GLUCOSE 149 mg/dL (74-106); POTASSIUM 3.4 mmol/L (3.5-5.1); SODIUM SERUM 142 mmol/L (136-145); TOTAL PROTEIN, SERUM 4.9 g/dL (6.4-8.2); UREA NITROGEN, BLOOD 32 mg/dL (7-18)
[2022-11-06 21:17] LABS: MAGNESIUM 1.8 mg/dL (1.8-2.4)
[2022-11-06 21:36] LABS: CARBON DIOXIDE 33 mmol/L (21-32)
--- NOTE | 2022-11-06 21:55 | NUR ---
PT HAS BEEN SWITCHED TO REGULAR FACEMASK 8L SATTING 90%, WITH Hx OF COPD AND EMPHYSEMA
--- NOTE | 2022-11-06 22:54 | NUR ---
REPORT GIVEN TO KENY ESCALERA FOR INPATIENT ADMISSION.
--- NOTE | 2022-11-06 23:00 | NUR ---
CONSTRUCTION EQUIPMENT OVERHAULERVISUAL ASSOCIATE NOTES REPORT RECEIVED FROM ELEANOR ESCALERA AROUND [id number]. PATIENT WAS TRANSFERRED FROM ER VIA GURNEY, WITH DAUGHTER. OBTAINED INFORMATIONS FROM THE DAUGHTER. V/S TAKEN AND RECORDED. BP 86/44, RR 24, HR 81 AND O2 91%. SKIN ASSESSMENT DONE AND PICTURES TAKEN. ALL BELONGINGS CHECKED AND BELONGING LIST SIGNED.
[2022-11-06 23:10] VITALS: BP_SYST 86; BP_SYST 99; BP_DIAS 44; BP_DIAS 46
[2022-11-07] VITALS (25 sets, daily range): BP systolic 67–136; BP diastolic 27–91
[2022-11-07] MEDS ORDERED: ACETAMINOPHEN 325 MG TABLET PO PRN (02:30)
[2022-11-07] MEDS ORDERED: INSULIN REGULAR, HUMAN 100 UNIT/ML 10 ML VIAL SQ PRN (03:30)
[2022-11-07] MEDS ORDERED: MAGNESIUM HYDROXIDE 30 ML UDC PO PRN (04:00)
[2022-11-07] MEDS ORDERED: METOPROLOL SUCCINATE 25 MG TAB.SR.24H PO SCH (04:00)
[2022-11-07] MEDS ORDERED: ONDANSETRON HCL/PF 4 MG/2 ML VIAL IV PRN (04:00)
[2022-11-07] MEDS: LEVOTHYROXINE SODIUM 75 MCG TABLET PO SCH ×2 (07:00→07:44)
--- NOTE | 2022-11-07 07:02 | NUR ---
FLIGHT SUPERINTENDENT CLOSING NOTES PATIENT SLEEPING COMFORTABLY IN BED. DELAYED RESPONSE FROM VERBAL STIMULI. A/O X 1-2. ABLE TO ANSWER AND RELAY NEEDS. NO S/S OF PAIN NOTED AT THIS TIME. ON NON-REBREATHER MASK, 10L BREATHING EVEN AND UNLABORED, NO RESP DISTRESS AT THIS TIME. IV ACCESS ON RIGHT HAND #20G, INTACT, PATENT AND FLUSHING WELL. PATIENT WITH EXTERNAL SENIOR ENGINEERING TECHNICIAN WITH CURRENT READING OF SR AND CURRENT HR OF 89 WITH PVC'S, NO CARDIAC DISTRESS NOTED. SKIN ASSESSMENT DONE AND DRESSING DONE. PICTURES TAKEN. FALL AND SAFETY MEASURES GIVEN WITH BED ON LOWEST AND LOCKED POSITION. BED ALARM ON. CALL LIGHT AND TRAY WITHIN EASY REACH. SIDE RAILS UP X 2. WILL ENDORSE TO THE NEXT SHIFT.
--- NOTE | 2022-11-07 07:19 | NUR ---
WIND TURBINE CONTROLS ENGINEER OPENING NOTE PATIENT IN BED ASLEEP. WOKEN UP BY TOUCH. PATIENT IS ALERT AND ORIENTED X 3-4 ABLE TO MAKE NEEDS KNOWN. WITH OXYGEN AT 10LPM VIA FACE MASK WITH EQUAL AND UNLABORED BREATHING. NO COMPLAIN OF PAIN AT THIS TIME. NOTED CRACKLES AND OCCASIONAL COUGHING. SUCTIONED PATIENT NEEDED. WITH IV ACCESS ON RIGHT HAND #20G, INTACT AND PATENT. PATIENT ON GLOBAL HUMAN RESOURCES DIRECTOR READING OF SR WITH PVC AT OF 87 BPM. FALL AND SAFETY MEASURES GIVEN WITH BED ON LOWEST AND LOCKED POSITION. BED ALARM ON. CALL LIGHT AND TRAY WITHIN EASY REACH. SIDE RAILS UP X 2. WILL CONTINUE WITH PLAN OF CARE.
[2022-11-07] MEDS: PANTOPRAZOLE 40 MG TABLET.DR PO SCH ×3 (07:30→18:09)
[2022-11-07] MEDS ORDERED: PANTOPRAZOLE 40 MG TABLET.DR PO SCH (07:30)
[2022-11-07] MEDS: SUCRALFATE 1 G TABLET PO SCH ×5 (07:30→22:12)
--- NOTE | 2022-11-07 08:35 | NUR ---
AUTOMOTIVE PARTS COUNTERPERSON NOTE SECURED HD CONSENT AND ATTACHED TO CHART. PATIENT SCHEDULED FOR HD TODAY. IN STABLE CONDITION.
--- NOTE | 2022-11-07 08:59 | NUR ---
WOUND CARE CONSULT: PT PRESENTS WITH VERY FRAGILE SKIN WITH AREAS OF DISCOLORATION AND DRY ABRASIONS/TEARS TO UPPER EXTREMITIES, GENERALIZED EDEMA AND SACRAL STAGE 3 ULCER, PRESENT ON ADMISSION. DR FAUST CALLED FOR SURGICAL CONSULT. DISCUSSED SKIN PROTECTION WITH NURSING STAFF. [facility] IN AGREEMENT WITH PLAN OF CARE. Addendum: 11/07/22 at 0900 by KWAME PARMAR WNDNU Amended: Links added.
[2022-11-07] MEDS ORDERED: ASPIRIN 300 MG/SUPP.RECT RC SCH (09:00)
[2022-11-07] MEDS ORDERED: ASPIRIN EC 81 MG TABLET.DR PO SCH (09:00)
[2022-11-07] MEDS: FERROUS SULFATE (325 MG) 325 MG/TAB TABLET PO SCH ×2 (09:00→18:08)
[2022-11-07] MEDS ORDERED: METOPROLOL SUCCINATE 50 MG TAB.SR.24H PO SCH (09:00)
[2022-11-07] MEDS ORDERED: predniSONE 20 MG TABLET PO SCH (09:00)
[2022-11-07] MEDS: ALLOPURINOL 100 MG TABLET PO SCH ×2 (09:00→18:09)
[2022-11-07] MEDS ORDERED: ALLOPURINOL 100 MG TABLET PO SCH (09:00)
[2022-11-07] MEDS ORDERED: CYANOCOBALAMIN 500 MCG TABLET PO SCH ×2 (09:00)
[2022-11-07] MEDS: FOLIC ACID 1 MG TABLET PO SCH ×2 (09:00→18:09)
[2022-11-07] MEDS ORDERED: FERROUS SULFATE (325 MG) 325 MG/TAB TABLET PO SCH (09:00)
[2022-11-07] MEDS ORDERED: METFORMIN 500 MG TABLET PO SCH (09:00)
[2022-11-07] MEDS ORDERED: FUROSEMIDE 40 MG TABLET PO SCH (09:00)
[2022-11-07] MEDS: INSULIN GLARGINE, 100 UNIT/ML CARTRIDGE SQ SCH (09:00)
[2022-11-07] MEDS ORDERED: FLUTICASONE/VILANTEROL 1 EACH BLST.W.DEV IH SCH (09:00)
[2022-11-07] MEDS: PROSOURCE / PROSTAT (PYXIS) 30 ML UDC PO SCH ×3 (09:00→18:09)
[2022-11-07] MEDS: ALBUMIN 25% 25 GM in PREMIX 1 EA IV PRN (09:06)
[2022-11-07] MEDS ORDERED: SUCR1TAB PO (10:07)
[2022-11-07] MEDS ORDERED: MAGN400O6 PO (10:07)
[2022-11-07] MEDS ORDERED: ACET-868 PO (10:07)
[2022-11-07] MEDS ORDERED: FOLI0.8T2 PO (10:07)
[2022-11-07] MEDS ORDERED: FOLI0.4T6 PO (10:07)
[2022-11-07] MEDS ORDERED: INSU100V39 SQ (10:07)
[2022-11-07] MEDS ORDERED: THIA100T70 PO (10:07)
[2022-11-07] MEDS ORDERED: HEPA50008 SQ (10:07)
[2022-11-07] MEDS ORDERED: GUAI118L48 PO (10:07)
[2022-11-07] MEDS ORDERED: POLY17PO4 PO (10:07)
[2022-11-07] MEDS ORDERED: FLUT1BLS IH (10:07)
[2022-11-07] MEDS ORDERED: NA P133E RC (10:07)
[2022-11-07] MEDS ORDERED: ASCO-352 PO (10:07)
[2022-11-07] MEDS ORDERED: SENN-261 PO (10:07)
--- NOTE | 2022-11-07 10:15 | NUR ---
SENIOR EDITOR NOTE EVALUATED PATIENT FOR SWALLOWING, PATIENT IS INCONSISTENT IN SWALLOWING WITH OCCASIONAL COUGHING. FOLLOW UP WITH ST. PER ST, PATIENT SHOULD REMAIN NPO. WILL KEEP PATIENT NPO.
[2022-11-07] MEDS ORDERED: MIDODRINE HCL (5MG) 5 MG TABLET PO PRN (10:30)
[2022-11-07] MEDS: methylPREDNISolone SOD SUCC 125 MG/2ML VIAL IV SCH ×3 (10:46→23:21)
[2022-11-07] MEDS: Z GUARD REMEDY 4 OZ OINT TP SCH (11:03)
[2022-11-07] MEDS: THERAHONEY GEL 1.5 OZ TUBE TP SCH (11:03)
[2022-11-07] MEDS: HEPARIN SODIUM, PORCINE 5000 UNITS/1 ML VIAL SQ SCH ×2 (11:12→22:13)
[2022-11-07] MEDS ORDERED: THERAHONEY GEL 1.5 OZ TUBE TP SCH (11:30)
[2022-11-07 11:33] LABS: BASOPHILS % (AUTO) 0.3 % (0.0-2.0); EOSINOPHILS % (AUTO) 0.3 % (0.0-6.0); HEMATOCRIT 25 % (39-51); HEMOGLOBIN 7.6 g/dL (13.5-17.5); LYMPHOCYTES # (AUTO) 0.5 K/uL (0.8-4.8); LYMPHOCYTES % (AUTO) 8.8 % (20.0-44.0); MEAN CORPUSCULAR HGB CONC 31 g/dl (31.0-36.0); MEAN CORPUSCULAR VOLUME 108 fL (80-96); MONOCYTES # (AUTO) 0.5 K/uL (0.1-1.30); MONOCYTES % (AUTO) 8.6 % (2.0-12.0); PLATELET COUNT (AUTO) 119 K/uL (150-450); WHITE BLOOD COUNT (AUTO) 6.1 K/uL (4.3-11.0)
--- NOTE | 2022-11-07 11:45 | NUR ---
BIOASSAYIST NOTE PATIENT ABLE TO FINISH HD BUT ONLY BREANA 127ML OF FLUIDS PER DIALYSIS NURSE BECAUSE OF HYPOTENSION. TOLERATED PROCEDURE. LATEST BS 99MG/DL. IN STABLE CONDITION.
[2022-11-07] MEDS: BLOOD SUGAR DIAGNOSTIC 1 EACH STRIP IN SCH ×2 (11:50→18:10)
[2022-11-07 12:01] LABS: CALCIUM, SERUM 8.4 mg/dL (8.5-10.1); CARBON DIOXIDE 35 mmol/L (21-32); CHLORIDE 106 mmol/L (98-107); CREATININE 1.8 mg/dL (0.6-1.3); GLUCOSE 100 mg/dL (74-106); MAGNESIUM 1.8 mg/dL (1.8-2.4); PHOSPHORUS 3.1 mg/dL (2.5-4.9); POTASSIUM 3.5 mmol/L (3.5-5.1); SODIUM SERUM 140 mmol/L (136-145); UREA NITROGEN, BLOOD 18 mg/dL (7-18)
[2022-11-07] MEDS ORDERED: PROSOURCE / PROSTAT (PYXIS) 30 ML UDC GT SCH (13:00)
--- NOTE | 2022-11-07 13:10 | NUR ---
ACCOUNTS RECEIVABLE BOOKKEEPER NOTE SEEN BY DR. PATRICK. MD ASSESSED THE PATIENT, NOTED CONGESTION. WITH ORDER FOR IV ACCESS. ORDER VERIFIED AND ENTERED. DAUGHTER AT BEDSIDE AND GOT A CHANCE TO SPEAK WITH THE MD. MAINTAINED ON HIGH BACK REST. IN STABLE CONDITION.
[2022-11-07] MEDS ORDERED: FUROSEMIDE 40 MG/4 ML VIAL IV ONE (14:00)
[2022-11-07] MEDS ORDERED: VANCOMYCIN 1 GM in IV D5W 250 ML IV ONE ×2 (14:30→15:00)
--- NOTE | 2022-11-07 15:20 | NUR ---
FINISHING RANGE SUPERVISOR NOTE NASOGASTRIC TUBE INSERTED ORDERED. PROCEDURE TOLERATED WELL. IN STABLE CONDITION. CHEST XRAY ORDERED TO CHECK PLACEMENT.
[2022-11-07] MEDS: ALBUTEROL FS 2.5 MG/0.5 ML VIAL.NEB NEB SCH ×3 (16:09→22:51)
[2022-11-07] MEDS: IPRATROPIUM NEB FS 0.5 MG/2.5 ML AMPUL.NEB NEB SCH ×3 (16:09→22:51)
--- NOTE | 2022-11-07 16:09 | NUR ---
PT. LOOKS LETHARGIC FOUND ON SIMPLE MASK @ 10 LPM OXYGEN FLOW WITH 86% SPO2 RN AWARE, RECOMMENDED TO DO ABG Addendum: 11/07/22 at 1619 by AFSHAN SANTANA RT Amended: Links added.
--- NOTE | 2022-11-07 16:30 | NUR ---
BUSINESS UNIT MANAGER NOTE PATIENT NOTED DESATURATING, RESPONSIVE TO CALL, ANSWERS BACK BUT APPEARS VERY WEAK. LATEST BS 84 MG/DL, BREATHING TREATMENT DONE C/O RT. SUGGESTED TO DO ABGS. DR. PATRICK NOTIFIED WITH ORDERS MADE AND CARRIED OUT. COMFORT MEASURES PROVIDED. ON HIGH BACK REST.
[2022-11-07 16:50] LABS: ABG BASE EXCESS 0.6 mmol/L; ABG PCO2 67.6 mmHg (35.0-45.0); ABG PH 7.245 (7.350-7.450); ABG PO2 37.1 mmHg (75.0-100.0); COHb 1.1 % (0.5-1.5); MetHb 0.4 % (0.0-1.5); O2Hb 77.9 % (94.0-97.0); SITE, ABG Right Radial; VENT MODE, BG SIMPLE
--- NOTE | 2022-11-07 17:05 | NUR ---
WATERSHED ENGINEER NOTE ABG RESULTS RELAYED TO DR. PATRICK, WITH ORDER TO RELAY RESULTS TO DR. PAUL. DR. PAUL NOTIFIED, AWAITING ORDERS.
[2022-11-07 17:13] LABS: LYMPHOCYTES % (MANUAL) 8 % (16-48); MONOCYTES % (MANUAL) 7 % (0-11.0); NEUTROPHILS % (MANUAL) 85 (42-76)
--- NOTE | 2022-11-07 17:30 | NUR ---
MANUFACTURING ENGINEERING TECHNOLOGIST NOTE NO RESPONSE RECEIVED FROM DR. PAUL YET. FOLLOW UP MADE WITH DR. PATRICK, WITH ORDER TO TRANSFER PATIENT TO ICU AND HOOK TO BIPAP WITH SETTINGS, ORDERS READ BACK AND VERIFIED. CHARGE NURSE NOTIFIED. AWAITING ROOM NUMBER.
--- NOTE | 2022-11-07 17:43 | NUR ---
RN NOTES RECEIVED PT FROM 3W , PT IS LETHARGIC , DOES NOT FOLLOW COMMAND, RESPONDS TO PAINFUL STIMULI, PLACED ON BIPAP , PER DR PAUL ORDER , ON TELE SR , LEFT UPPER ARM MIDLINE SITE CDI, NGT PLACEMENT VERIFIED , SR UP x3, CALL LIGHT WITHIN EASY REACH, BED LOCKED AND IN LOWEST POSITION , CONTINUE TO MONITOR
--- NOTE | 2022-11-07 17:45 | NUR ---
SAMPLE PATTERNMAKER NOTE MIDLINE NURSE CAME AND INSERTED MIDLINE ORDERED. PATENT AND INTACT. UNABLE TO ADMINISTER IV MEDS AT THIS TIME BECAUSE IV ACCESS. ENDORSED ACCORDINGLY. PATIENT TRANSFERRED TO ICU ORDERED, TRANSPORTED VIA BED ACCOMPANIED BY 2RN. TRANSFERRED TO BED 259, COMFORT MEASURES PROVIDED. PATIENT ENDORSED TO NURSE HARDIN.
--- NOTE | 2022-11-07 17:52 | NUR ---
PNEUMATIC PRESS HAND NOTE SPOKE WITH PHARMACIST WESLEY REGARDING POSSIBILITY OF CHANGING ADMINISTRATION TIME OF IV MEDS BECAUSE MIDLINE WAS JUST INSERTED. SHE SAID TO JUST DOCUMENT WHY IT WAS GIVEN LATE. AWARE. DOCUMENTED AND ENDORSED ACCORDINGLY.
[2022-11-07] MEDS: SOD FERRIC GLUC 125 MG in IV NS 0.9% 100 ML IV SCH (17:59)
[2022-11-07] MEDS: PIPERACILLIN /TAZOBACTAM 2.25 G in IV D5W 50 ML IV SCH ×2 (18:00→18:41)
--- NOTE | 2022-11-07 18:22 | NUR ---
PT arrived from [facility] on simple mask at 10lpm with sob and resp. acidosis. pt placed on bipap per ks order settings as ordered. alarms set and audible. abg due at 1999. Addendum: 11/07/22 at 1828 by HILDA CHAVEZ RT Amended: Links added.
--- NOTE | 2022-11-07 19:00 | NUR ---
LEAD PONY RIDER. INITIAL ASSESSMENT. RECEIVED THE PT REST IN BED, PT IS VERY LETHARGIC. BIPAP ON. SAT 97%. NOT OPEN HIS EYES. FAMILY AT BED SIDE. HOB ELEVATED. NGT INTACT. IV LT UPPER ARM MID LINE. TKO RUNNING, WILL CONTINUE TO MONITOR VITALS.
--- NOTE | 2022-11-07 20:00 | NUR ---
IT SERVICE DELIVERY MANAGER. ABG DONE. RESULT NOTIFIED DR PAUL, PT IS STILL NOT RESPONDING. RECEIVED THE ORDER INTUBATION FROM DR PAUL. I SPOKE WITH DR GOMEZ. DOCTOR WANTS GIVE THE PT 2 AMP BICARB IVP. I NOTIFIED MD PAUL. HELD 2 AMP BICARB.
--- NOTE | 2022-11-07 20:29 | NUR ---
abg done JW Molina notified with the result.
[2022-11-07] MEDS: NOREPINEPHRINE 8 MG in IV NS 0.9% 242 ML IV PRN (20:51)
--- NOTE | 2022-11-07 21:09 | NUR ---
RIVETER PORTABLE MACHINE. ER MD SUCCESSFULLY INTUBATED THE PT. PROPOFOL STARTED. WILL MONITOR.
[2022-11-07] MEDS: PROPOFOL 100 ML IV PRN ×2 (21:24→23:23)
--- NOTE | 2022-11-07 21:33 | NUR ---
@[address] PT ORALLY INTUBATED BY DR JOLLEY. 8.0 ETT SECURED AT 26CM AT LIP, COLOR CHANGE ON CO2 DETECTOR AND BILATERAL BREATH SOUNDS. PLACED ON VENT AC 22, 550, 100%, +5. SX'D LARGE AMOUNT OF THICK YELLOW SECRETIONS. ALARMS SET AND AUDIBLE.
[2022-11-07] MEDS ORDERED: ATORVASTATIN 40 MG TABLET PO SCH ×2 (22:00)
[2022-11-07] MEDS ORDERED: INSULIN DETEMIR 100 UNIT/ML CARTRIDGE SQ SCH (22:00)
--- NOTE | 2022-11-07 22:01 | NUR ---
MUSIC LIBRARIAN. DR PAUL ORDERED ABG S/P INTUBATION.
[2022-11-07] MEDS: GLUCERNA 1.5 1,000 ML BOTTLE NG SCH (22:54)
--- NOTE | 2022-11-07 23:03 | NUR ---
FIO2 AND VT CHANGE PER DR PAUL.
[2022-11-08] VITALS (66 sets, daily range): BP systolic 92–159; BP diastolic 45–79
[2022-11-08] MEDS: PIPERACILLIN /TAZOBACTAM 2.25 G in IV D5W 50 ML IV SCH ×4 (00:15→18:13)
[2022-11-08] MEDS: BLOOD SUGAR DIAGNOSTIC 1 EACH STRIP IN SCH ×4 (00:15→18:36)
[2022-11-08] MEDS: PROPOFOL 100 ML IV PRN ×9 (01:43→23:06)
[2022-11-08] MEDS: ALBUTEROL FS 2.5 MG/0.5 ML VIAL.NEB NEB SCH ×6 (03:29→23:37)
[2022-11-08] MEDS: NOREPINEPHRINE 8 MG in IV NS 0.9% 242 ML IV PRN ×2 (04:43→11:44)
--- NOTE | 2022-11-08 04:45 | NUR ---
NEON SIGN SERVICER. AM CARE GIVEN. REMAINING SAME VENT SETTINGS TOLERATED WELL.SAT 98%. NO ACUTE DISTRESS NOTED. ELECTRICAL SYSTEMS ENGINEER SHOWING NSR. IV LT UPPER ARM MID LINE PROPOFOL 80MCG/KG/MIN, NGT FEEDING TOLERATED WELL.JOHN SOFT WRIST RESTRAINT CHECKED AND RELEASED NO INJURY OR REDNESS NOTED, JOHN HAND WEEPING. TURN AND REPOSITION Q2H. WILL CONTINUE TO MONITOR VITALS.
[2022-11-08 05:29] LABS: CALCIUM, SERUM 8.2 mg/dL (8.5-10.1); CARBON DIOXIDE 24 mmol/L (21-32); CHLORIDE 105 mmol/L (98-107); CREATININE 2.8 mg/dL (0.6-1.3); GLUCOSE 165 mg/dL (74-106); MAGNESIUM 1.8 mg/dL (1.8-2.4); POTASSIUM 4.1 mmol/L (3.5-5.1); SODIUM SERUM 141 mmol/L (136-145); UREA NITROGEN, BLOOD 33 mg/dL (7-18)
[2022-11-08] MEDS ORDERED: VANCOMYCIN 500 MG in IV D5W 100 ML IV PRN (06:00)
[2022-11-08] MEDS: methylPREDNISolone SOD SUCC 125 MG/2ML VIAL IV SCH ×3 (06:10→22:41)
[2022-11-08 06:25] LABS: ABG BASE EXCESS -3.4 mmol/L; ABG OXYGEN SATURATION 94.8 % (92.0-98.5); ABG PCO2 69.5 mmHg (35.0-45.0); ABG PO2 77.6 mmHg (75.0-100.0); AaDO2 565.9 mmHg; COHb 1.6 % (0.5-1.5); MetHb 0.1 % (0.0-1.5); O2Hb 93.2 % (94.0-97.0); SITE, ABG Right Radial
[2022-11-08] MEDS: IPRATROPIUM NEB FS 0.5 MG/2.5 ML AMPUL.NEB NEB SCH ×4 (07:35→23:37)
[2022-11-08] MEDS ORDERED: SUCRALFATE 1 G/10 ML UDC PO SCH (08:30)
[2022-11-08] MEDS ORDERED: PANTOPRAZOLE 40 MG/PACK PACK PO SCH (08:30)
[2022-11-08] MEDS ORDERED: PHARMACY TO CHANGE PO MEDS TO GT/NG XX PRN (08:30)
[2022-11-08] MEDS ORDERED: PANTOPRAZOLE 40 MG/PACK PACK GT SCH (08:37)
[2022-11-08] MEDS ORDERED: SUCRALFATE 1 G/10 ML UDC GT SCH (08:37)
[2022-11-08] MEDS ORDERED: FERROUS SULFATE (325 MG) 325 MG/TAB TABLET GT SCH (08:40)
[2022-11-08] MEDS ORDERED: ACETAMINOPHEN LIQUID 325 MG/10.1 ML UDC GT PRN (09:00)
[2022-11-08] MEDS: METOPROLOL SUCCINATE 50 MG TAB.SR.24H PO SCH (09:00)
[2022-11-08] MEDS ORDERED: EPOETIN ALFA (4000 UNIT) 4,000 UNIT/ML VIAL IV SCH (09:00)
[2022-11-08] MEDS ORDERED: FOLIC ACID 1 MG TABLET GT SCH (09:08)
[2022-11-08] MEDS ORDERED: LEVOTHYROXINE SODIUM 75 MCG TABLET GT SCH (09:17)
[2022-11-08] MEDS ORDERED: MAGNESIUM HYDROXIDE 30 ML UDC GT PRN (09:17)
[2022-11-08] MEDS ORDERED: PROSOURCE / PROSTAT (PYXIS) 30 ML UDC GT SCH (09:18)
[2022-11-08] MEDS: ALLOPURINOL 100 MG TABLET GT SCH ×2 (09:36→18:12)
[2022-11-08] MEDS: CYANOCOBALAMIN 500 MCG TABLET GT SCH (09:36)
[2022-11-08] MEDS: FERROUS SULFATE UDC 300 MG/5 ML UDC GT SCH ×2 (09:38→18:12)
[2022-11-08] MEDS: Z GUARD REMEDY 4 OZ OINT TP SCH (09:40)
[2022-11-08] MEDS: THERAHONEY GEL 1.5 OZ TUBE TP SCH (09:41)
[2022-11-08] MEDS ORDERED: FOLIC ACID 1 MG TABLET NG SCH (09:50)
[2022-11-08] MEDS ORDERED: FUROSEMIDE SOLN 40 MG/5 ML UDC NG SCH (10:00)
[2022-11-08] MEDS: ASPIRIN 81 MG TAB.CHEW NG SCH (10:09)
[2022-11-08] MEDS: PROSOURCE / PROSTAT (PYXIS) 30 ML UDC NG SCH ×3 (10:10→18:15)
[2022-11-08] MEDS: FOLIC ACID 1 MG TABLET NG SCH ×2 (10:10→18:12)
[2022-11-08] MEDS: PANTOPRAZOLE 40 MG/PACK PACK NG SCH ×2 (10:30→18:15)
[2022-11-08] MEDS: FUROSEMIDE 40 MG TABLET NG SCH (10:30)
[2022-11-08 10:43] LABS: BASOPHILS % (AUTO) 0.3 % (0.0-2.0); HEMATOCRIT 21 % (39-51); LYMPHOCYTES # (AUTO) 0.3 K/uL (0.8-4.8); LYMPHOCYTES % (AUTO) 5.5 % (20.0-44.0); MEAN CORPUSCULAR HGB CONC 31 g/dl (31.0-36.0); MEAN CORPUSCULAR VOLUME 105 fL (80-96); MONOCYTES # (AUTO) 0.1 K/uL (0.1-1.30); MONOCYTES % (AUTO) 2.6 % (2.0-12.0); NEUTROPHILS # (AUTO) 4.3 K/uL (1.8-8.9); NEUTROPHILS % (AUTO) 91.6 % (43.0-81.0); PLATELET COUNT (AUTO) 106 K/uL (150-450); WHITE BLOOD COUNT (AUTO) 4.7 K/uL (4.3-11.0)
[2022-11-08 10:46] LABS: RED BLOOD CELL COUNT(AUTO) 1.99 MIL/uL (4.5-6.0)
[2022-11-08 10:48] LABS: HEMOGLOBIN 6.5 g/dL (13.5-17.5)
[2022-11-08] MEDS: INSULIN GLARGINE, 100 UNIT/ML CARTRIDGE SQ SCH (11:12)
--- NOTE | 2022-11-08 11:27 | NUR ---
DR PATRICK WAS NOTIFIED OF THE RECENT CBC; H/H LEVEL (6.01/12), WITH NEW ORDER OF 2UNITS PRBC. CHARGE NURSE-ALEJANDRINA FREGOSO
[2022-11-08] MEDS: MIDODRINE HCL (5MG) 5 MG TABLET GT PRN (11:44)
[2022-11-08] MEDS: HEPARIN SODIUM, PORCINE 5000 UNITS/1 ML VIAL SQ SCH ×2 (11:53→22:42)
[2022-11-08] MEDS: ALBUMIN 25% 25 GM in PREMIX 1 EA IV PRN (12:02)
[2022-11-08] MEDS: LEVOTHYROXINE SODIUM 75 MCG TABLET GT SCH (12:23)
[2022-11-08] MEDS: SUCRALFATE 1 G/10 ML UDC NG SCH ×3 (12:24→22:00)
[2022-11-08] MEDS ORDERED: DEXTROSE 50%-WATER 50 ML DISP.SYRIN IV PRN (13:00)
[2022-11-08] MEDS ORDERED: EPOETIN ALFA (4000 UNIT) 4,000 UNIT/ML VIAL SQ ONE ×2 (13:00→17:00)
[2022-11-08] MEDS ORDERED: PROSOURCE / PROSTAT (PYXIS) 30 ML UDC NG SCH (13:00)
[2022-11-08] MEDS ORDERED: EPOETIN ALFA-EPBX 4,000 UNIT/ML VIAL SQ ONE ×2 (13:00→17:00)
[2022-11-08] MEDS: INSULIN REGULAR, HUMAN 100 UNIT/ML 3 ML VIAL SQ PRN ×2 (13:26→18:38)
[2022-11-08] MEDS ORDERED: PROPOFOL 200 MG/20 ML VIAL IV ONE (13:53)
[2022-11-08] MEDS ORDERED: VANCOMYCIN 1 GM in IV D5W 250ml IV ONE (14:00)
[2022-11-08] MEDS ORDERED: EPOETIN ALFA-EPBX 4,000 UNIT/ML VIAL IV SCH (15:00)
[2022-11-08] MEDS: SOD FERRIC GLUC 125 MG in IV NS 0.9% 100 ML IV SCH (15:31)
[2022-11-08] MEDS ORDERED: PANTOPRAZOLE 40 MG/PACK PACK NG SCH (16:30)
--- NOTE | 2022-11-08 19:48 | NUR ---
RUBBER ROLLER GRINDER. INITIAL ASSESSMENT. RECEIVED THE PT REST IN BED. ORALLY INTUBATED. SEDATED WITH PROPOFOL. NGT INTACT. FEEDING TOLERATED WELL. HOB ELEVATED. APPEALS SPECIALIST SHOWING NSR.IV LT UPPER ARM MID LINE. PROPOFOL 50 MCG/KG/MIN, WILL CONTINUE TO MONITOR VITALS.
[2022-11-08 20:17] LABS: BAND % (MANUAL) 4 % (0.0-5.0); LYMPHOCYTES % (MANUAL) 7 % (16-48); MONOCYTES % (MANUAL) 2 % (0-11.0); NEUTROPHILS % (MANUAL) 87 (42-76)
[2022-11-08 20:25] LABS: ABG BASE EXCESS -1.3 mmol/L; ABG PCO2 42.1 mmHg (35.0-45.0); ABG PH 7.372 (7.350-7.450); ABG PO2 177.3 mmHg (75.0-100.0); AaDO2 312.7 mmHg; COHb 0.7 % (0.5-1.5); MetHb 0.5 % (0.0-1.5); O2Hb 97.8 % (94.0-97.0); PEEP,BG 5 cm H2O; SITE, ABG Right Radial
[2022-11-08 20:25] LABS: ABG BASE EXCESS 0.7 mmol/L; ABG PCO2 53.1 mmHg (35.0-45.0); ABG PH 7.325 (7.350-7.450); ABG PO2 151.1 mmHg (75.0-100.0); AaDO2 508.8 mmHg; COHb 1.1 % (0.5-1.5); MetHb 0.6 % (0.0-1.5); O2Hb 97.3 % (94.0-97.0); PEEP,BG 5 cm H2O; SITE, ABG Right Radial; VENT MODE, BG AC 22 550 100% +5; VT, ABG 550 mL
[2022-11-08] MEDS: ATORVASTATIN 40 MG TABLET GT SCH (22:41)
--- NOTE | 2022-11-08 22:47 | NUR ---
carafate not given 2200. day shift given at 1816
[2022-11-09] VITALS (43 sets, daily range): BP systolic 92–160; BP diastolic 18–90
[2022-11-09] MEDS: PIPERACILLIN /TAZOBACTAM 2.25 G in IV D5W 50 ML IV SCH ×4 (01:03→17:57)
[2022-11-09] MEDS: BLOOD SUGAR DIAGNOSTIC 1 EACH STRIP IN SCH ×4 (01:12→17:48)
[2022-11-09] MEDS: INSULIN REGULAR, HUMAN 100 UNIT/ML 3 ML VIAL SQ PRN ×4 (01:15→17:58)
[2022-11-09] MEDS: PROPOFOL 100 ML IV PRN ×4 (03:00→19:27)
[2022-11-09] MEDS: ALBUTEROL FS 2.5 MG/0.5 ML VIAL.NEB NEB SCH ×6 (03:34→23:53)
--- NOTE | 2022-11-09 03:47 | NUR ---
curriculum and instruction specialist. am care given. remaining same vent settings tolertasted well. sat 98%. no acute distress noted. monitoring analyst showing s melissa. ngt feeding tolerated well. turn and reposition q2h. joe soft wrist restraint checked and released, no injury or redness noted. iv lt upper arm mid line propofol 30 mcg/kg/minbil upper extremity weeping. will continue to monitor vitals
[2022-11-09] MEDS: methylPREDNISolone SOD SUCC 125 MG/2ML VIAL IV SCH ×3 (06:21→21:05)
--- NOTE | 2022-11-09 06:21 | NUR ---
agricultural produce sorter. blood is not ready. follow up with blood bank.
[2022-11-09] MEDS: IPRATROPIUM NEB FS 0.5 MG/2.5 ML AMPUL.NEB NEB SCH ×3 (07:27→19:29)
[2022-11-09] MEDS: FOLIC ACID 1 MG TABLET NG SCH ×2 (08:05→16:33)
[2022-11-09] MEDS: CYANOCOBALAMIN 500 MCG TABLET GT SCH (08:05)
[2022-11-09] MEDS: PANTOPRAZOLE 40 MG/PACK PACK NG SCH ×2 (08:05→16:33)
[2022-11-09] MEDS: SUCRALFATE 1 G/10 ML UDC NG SCH ×4 (08:05→21:05)
[2022-11-09] MEDS: FUROSEMIDE 40 MG TABLET NG SCH (08:05)
[2022-11-09] MEDS: LEVOTHYROXINE SODIUM 75 MCG TABLET GT SCH (08:05)
[2022-11-09] MEDS: ALLOPURINOL 100 MG TABLET GT SCH ×2 (08:05→16:33)
[2022-11-09] MEDS: FERROUS SULFATE UDC 300 MG/5 ML UDC GT SCH ×2 (08:05→16:33)
[2022-11-09] MEDS: ASPIRIN 81 MG TAB.CHEW NG SCH (08:05)
[2022-11-09] MEDS: METOPROLOL SUCCINATE 50 MG TAB.SR.24H PO SCH (08:06)
[2022-11-09] MEDS: INSULIN GLARGINE, 100 UNIT/ML CARTRIDGE SQ SCH (08:09)
[2022-11-09] MEDS: HEPARIN SODIUM, PORCINE 5000 UNITS/1 ML VIAL SQ SCH ×2 (08:10→21:07)
[2022-11-09] MEDS: THERAHONEY GEL 1.5 OZ TUBE TP SCH (08:11)
[2022-11-09] MEDS: Z GUARD REMEDY 4 OZ OINT TP SCH (08:11)
--- NOTE | 2022-11-09 08:42 | NUR ---
ICU/RN PER JORDYN RUBY TO CONTINUE SUBCUT HEPARIN AT THIS TIME WITH LOW HEMOGLOBIN. ORDER TO STOP HEPARIN ONLY IF BLOOD IN STOOL IN NOTICE. NO BLOOD IN STOOL SEEN AT THIS TIME. HEPARIN SUBCUT GIVEN.
[2022-11-09] MEDS ORDERED: FUROSEMIDE SOLN 40 MG/5 ML UDC GT SCH (09:00)
[2022-11-09] MEDS: PROSOURCE / PROSTAT (PYXIS) 30 ML UDC NG SCH ×3 (09:51→16:33)
--- NOTE | 2022-11-09 11:00 | NUR ---
ICU/RN NO RESIDUAL NOTED. NGT FEEDING INCREASED TO 60MLS/HR
[2022-11-09 11:09] LABS: CALCIUM, SERUM 8.6 mg/dL (8.5-10.1); CARBON DIOXIDE 31 mmol/L (21-32); CHLORIDE 101 mmol/L (98-107); CREATININE 2.6 mg/dL (0.6-1.3); GLUCOSE 217 mg/dL (74-106); PHOSPHORUS 3.5 mg/dL (2.5-4.9); POTASSIUM 3.2 mmol/L (3.5-5.1); SODIUM SERUM 137 mmol/L (136-145); UREA NITROGEN, BLOOD 34 mg/dL (7-18)
[2022-11-09 11:27] LABS: BASOPHILS % (AUTO) 0.2 % (0.0-2.0); HEMATOCRIT 21 % (39-51); LYMPHOCYTES # (AUTO) 0.2 K/uL (0.8-4.8); LYMPHOCYTES % (AUTO) 6.1 % (20.0-44.0); MEAN CORPUSCULAR HGB CONC 32 g/dl (31.0-36.0); MEAN CORPUSCULAR VOLUME 103 fL (80-96); MONOCYTES # (AUTO) 0.4 K/uL (0.1-1.30); MONOCYTES % (AUTO) 11.4 % (2.0-12.0); NEUTROPHILS # (AUTO) 2.9 K/uL (1.8-8.9); NEUTROPHILS % (AUTO) 82.3 % (43.0-81.0); PLATELET COUNT (AUTO) 124 K/uL (150-450); RED BLOOD CELL COUNT(AUTO) 2.07 MIL/uL (4.5-6.0); WHITE BLOOD COUNT (AUTO) 3.6 K/uL (4.3-11.0)
[2022-11-09 11:31] LABS: HEMOGLOBIN 6.8 g/dL (13.5-17.5)
[2022-11-09] MEDS: NOREPINEPHRINE 8 MG in IV NS 0.9% 242 ML IV PRN (11:33)
--- NOTE | 2022-11-09 12:12 | NUR ---
ICU/RN HD COMPLETED. 3,000MLS REMOVED. BP STABLE
[2022-11-09] MEDS: VANCOMYCIN 500 MG in IV D5W 100 ML IV PRN (14:30)
[2022-11-09] MEDS: GLUCERNA 1.5 1,000 ML BOTTLE NG SCH (14:58)
[2022-11-09] MEDS: IV NS 0.9% 250 ML IV PRN (15:36)
[2022-11-09] MEDS: EPOETIN ALFA-EPBX 4,000 UNIT/ML VIAL IV SCH (15:38)
[2022-11-09] MEDS: SOD FERRIC GLUC 125 MG in IV NS 0.9% 100 ML IV SCH (15:38)
[2022-11-09] MEDS ORDERED: IPRATROPIUM NEB FS 0.5 MG/2.5 ML AMPUL.NEB NEB PRN (18:30)
[2022-11-09] MEDS ORDERED: ALBUTEROL FS 2.5 MG/0.5 ML VIAL.NEB NEB PRN (18:30)
[2022-11-09] MEDS: ATORVASTATIN 40 MG TABLET GT SCH (21:05)
--- NOTE | 2022-11-09 22:12 | NUR ---
BB 696/41. pT IS SEDATED WITH PROPOFOL 29 MCG/KG/MIN. HR 59. [id number]. BLOOD BANK CALLED. BLOODISNTAVAIABLE PER LAB AT THIS TIME. PT LEANN IS AT THE BEDSIDE IS INFORMED.
[2022-11-10] VITALS (46 sets, daily range): BP systolic 92–145; BP diastolic 17–66
--- NOTE | 2022-11-10 | NUR ---
Pt reassessed. No change in status. Profpfol infusing as orderdered. Pt is sedated and VS WNL is noted on the nurse flow sheet..
[2022-11-10] MEDS: PIPERACILLIN /TAZOBACTAM 2.25 G in IV D5W 50 ML IV SCH ×5 (00:25→23:49)
[2022-11-10] MEDS: INSULIN REGULAR, HUMAN 100 UNIT/ML 3 ML VIAL SQ PRN ×5 (00:31→23:52)
[2022-11-10] MEDS: IPRATROPIUM NEB FS 0.5 MG/2.5 ML AMPUL.NEB NEB SCH ×5 (01:39→23:38)
[2022-11-10 03:20] LABS: BAND % (MANUAL) 3 % (0.0-5.0); BASOPHILS % (MANUAL) 0 % (0.0-2.0); EOSINOPHILS % (MANUAL) 0 % (0-4); LYMPHOCYTES % (MANUAL) 5 % (16-48); MONOCYTES % (MANUAL) 7 % (0-11.0); NEUTROPHILS % (MANUAL) 85 (42-76)
[2022-11-10] MEDS: ALBUTEROL FS 2.5 MG/0.5 ML VIAL.NEB NEB SCH ×6 (04:14→23:38)
[2022-11-10 04:38] LABS: HEMATOCRIT 22 % (39-51); LYMPHOCYTES # (AUTO) 0.4 K/uL (0.8-4.8); LYMPHOCYTES % (AUTO) 7.3 % (20.0-44.0); MEAN CORPUSCULAR HGB CONC 31 g/dl (31.0-36.0); MEAN CORPUSCULAR VOLUME 104 fL (80-96); MONOCYTES # (AUTO) 0.2 K/uL (0.1-1.30); MONOCYTES % (AUTO) 3.7 % (2.0-12.0); NEUTROPHILS # (AUTO) 4.5 K/uL (1.8-8.9); PLATELET COUNT (AUTO) 142 K/uL (150-450); RED BLOOD CELL COUNT(AUTO) 2.07 MIL/uL (4.5-6.0); WHITE BLOOD COUNT (AUTO) 5.1 K/uL (4.3-11.0)
[2022-11-10 04:42] LABS: HEMOGLOBIN 6.7 g/dL (13.5-17.5)
[2022-11-10 04:52] LABS: CALCIUM, SERUM 8.4 mg/dL (8.5-10.1); CARBON DIOXIDE 24 mmol/L (21-32); CHLORIDE 102 mmol/L (98-107); CREATININE 3.1 mg/dL (0.6-1.3); GLUCOSE 281 mg/dL (74-106); MAGNESIUM 2.2 mg/dL (1.8-2.4); PHOSPHORUS 4.4 mg/dL (2.5-4.9); POTASSIUM 3.9 mmol/L (3.5-5.1); SODIUM SERUM 137 mmol/L (136-145); UREA NITROGEN, BLOOD 50 mg/dL (7-18)
[2022-11-10] MEDS ORDERED: PIPERACILLIN /TAZOBACTAM 2.25 G VIAL IV ONE (05:01)
[2022-11-10] MEDS: methylPREDNISolone SOD SUCC 125 MG/2ML VIAL IV SCH ×3 (05:04→21:05)
[2022-11-10] MEDS: PROPOFOL 100 ML IV PRN ×4 (05:07→18:52)
--- NOTE | 2022-11-10 05:10 | NUR ---
pt desat s, to 81. Copious secretion suction via orophrynx. RT notifies and came to the bedside. Pt O2SAT returned to baseline. 98
--- NOTE | 2022-11-10 05:42 | NUR ---
Pt remains sedated and bed bath rendered. Pt toleated activity. Suctioned scant secretion via trach every 2 hours. Secretion is tenacious. Pt incontinent of Small pasty. Juliet care rendered. B/L upper extremities edema.upper. Elevate on pillow.
--- NOTE | 2022-11-10 05:52 | NUR ---
Dr Castro notified of critical results. Pt to continue on Heparin as previously ordered. Blood is not available for transfusion.
--- NOTE | 2022-11-10 07:41 | NUR ---
VERBAL REPORT ENDORSED TO MORNING RN. UPDATED ORDERS AND LAB RESULT THIS SHIFT .
[2022-11-10 07:43] LABS: BILIRUBIN,DIRECT 0.3 mg/dL (0.0-0.2); BILIRUBIN,TOTAL 0.5 mg/dL (0.2-1.0)
[2022-11-10] MEDS: METOPROLOL SUCCINATE 50 MG TAB.SR.24H PO SCH (08:03)
[2022-11-10] MEDS: Z GUARD REMEDY 4 OZ OINT TP SCH (08:05)
[2022-11-10] MEDS: THERAHONEY GEL 1.5 OZ TUBE TP SCH (08:05)
[2022-11-10] MEDS: FERROUS SULFATE UDC 300 MG/5 ML UDC GT SCH ×2 (08:18→16:49)
[2022-11-10] MEDS: SUCRALFATE 1 G/10 ML UDC NG SCH ×4 (08:18→21:05)
[2022-11-10] MEDS: ASPIRIN 81 MG TAB.CHEW NG SCH (08:18)
[2022-11-10] MEDS: LEVOTHYROXINE SODIUM 75 MCG TABLET GT SCH (08:18)
[2022-11-10] MEDS: PANTOPRAZOLE 40 MG/PACK PACK NG SCH ×2 (08:18→16:49)
[2022-11-10] MEDS: CYANOCOBALAMIN 500 MCG TABLET GT SCH (08:18)
[2022-11-10] MEDS: FOLIC ACID 1 MG TABLET NG SCH ×2 (08:18→16:49)
[2022-11-10] MEDS: ALLOPURINOL 100 MG TABLET GT SCH ×2 (08:18→16:49)
[2022-11-10] MEDS: FUROSEMIDE 40 MG TABLET NG SCH (08:19)
[2022-11-10] MEDS: INSULIN GLARGINE, 100 UNIT/ML CARTRIDGE SQ SCH (08:20)
[2022-11-10] MEDS: HEPARIN SODIUM, PORCINE 5000 UNITS/1 ML VIAL SQ SCH ×2 (08:21→21:07)
[2022-11-10] MEDS: PROSOURCE / PROSTAT (PYXIS) 30 ML UDC NG SCH ×3 (08:25→16:50)
--- NOTE | 2022-11-10 10:32 | NUR ---
ICU/RN HD COMPLETED. PT TOLERATED WELL, BP STABLE THROUGHOUT. 2,500MLS REMOVED
[2022-11-10] MEDS: BLOOD SUGAR DIAGNOSTIC 1 EACH STRIP IN SCH ×3 (12:00→17:00)
[2022-11-10 12:16] LABS: BAND % (MANUAL) 6 % (0.0-5.0); BASOPHILS % (MANUAL) 0 % (0.0-2.0); EOSINOPHILS % (MANUAL) 0 % (0-4); LYMPHOCYTES % (MANUAL) 8 % (16-48); MONOCYTES % (MANUAL) 3 % (0-11.0); NEUTROPHILS % (MANUAL) 83 (42-76)
[2022-11-10] MEDS: SOD FERRIC GLUC 125 MG in IV NS 0.9% 100 ML IV SCH (14:07)
--- NOTE | 2022-11-10 14:46 | NUR ---
RECEIVED VERBAL ORDER FROM DOCTOR PATRICK TO DECREASE GLUCERNA TUBE FEEDING FROM 60 MLS/HR TO 30 MLS/HR AND TO DOUBLE DOSE OF PROSTAT TO REDUCE AMOUNT OF FLUID INTO THE BODY IN THE SETTING OF FLUID OVERLOAD. ORDER INPUTTED AND CARRIED OUT. Addendum: 11/10/22 at 1452 by MOLLY GAO RN ORDER AMENDED: START AT 30 MLS/HR FOR 12 HOURS THEN INCREASE TO 45 MLS/HR. PROSTAT DOSE REMAINS THE SAME.
[2022-11-10] MEDS: GLUCERNA 1.5 1,000 ML BOTTLE NG SCH (14:59)
[2022-11-10] MEDS: VANCOMYCIN 500 MG in IV D5W 100 ML IV PRN (15:12)
[2022-11-10] MEDS: CIPROFLOXACIN HCL 0.3% 5 ML BOTTLE EACHEYE SCH ×3 (15:20→21:20)
--- NOTE | 2022-11-10 16:15 | NUR ---
RECEIVED PATIENT ENDORSEMENT FROM JW HAY. WILL CONTINUE PLAN OF CARE AND ANTICIPATE NEEDS.
[2022-11-10] MEDS: IV NS 0.9% 250 ML IV PRN (16:57)
--- NOTE | 2022-11-10 18:55 | NUR ---
PATIENT REMAINS IN ROOM INTUBATED AND SEDATED. TOLERATING VENT SETTINGS WELL. KEPT CLEAN AND SAFE THROUGHOUT SHIFT. ALL DUE MEDICATIONS ADMINISTERED. SINUS EDWARD ON BEDSIDE MONITOR AT THIS TIME. PATIENT ANURIC. NASOGASTRIC TUBE INFUSING GLUCERNA ORDERED, NO RESIDUALS. IV ACCESS MAINTAINED ON LEFT AND RIGHT UPPER ARMS. PENDING 2 UNITS OF PACKED RBCS. SAFETY MEASURES IMPLEMENTED. WILL ENDORSE TO ONCOMING NIGHTSHIFT RN FOR CONTINUATION OF CARE.
--- NOTE | 2022-11-10 20:00 | NUR ---
Assume care of patient at this time. Pt is eddated on Propofol as ordered. Pt remains sedated. Please follow nurses flow record toseedetails of vent setting. Pt is in no distress, Patient's family is atthe bedside.
[2022-11-10] MEDS: ATORVASTATIN 40 MG TABLET GT SCH (21:21)
--- NOTE | 2022-11-10 22:00 | NUR ---
pt status is unchanged. Tplerates ROM. B/L wrist restraints in place released and reapply per protocol . Edema on B/L upper rarm is resolving. Elevate arms on pillows. Pt is sredated and v/s stablem
[2022-11-11] VITALS (41 sets, daily range): BP systolic 99–159; BP diastolic 24–84
--- NOTE | 2022-11-11 | NUR ---
Status unchanged. Pt is sedated, VEnt to OETT in place. Ngt [atent. Tube feeding in progres.
[2022-11-11] MEDS: BLOOD SUGAR DIAGNOSTIC 1 EACH STRIP IN SCH ×5 (00:12→23:36)
[2022-11-11] MEDS: ALBUTEROL FS 2.5 MG/0.5 ML VIAL.NEB NEB SCH ×6 (03:53→23:17)
--- NOTE | 2022-11-11 04:00 | NUR ---
Pt status is unchanded. Blood is not availabe for transfusion. Patien is sedated and v/s wnl.
[2022-11-11 04:34] LABS: BASOPHILS % (AUTO) 0.4 % (0.0-2.0); EOSINOPHILS % (AUTO) 0.1 % (0.0-6.0); HEMATOCRIT 21 % (39-51); LYMPHOCYTES # (AUTO) 0.2 K/uL (0.8-4.8); LYMPHOCYTES % (AUTO) 5.2 % (20.0-44.0); MEAN CORPUSCULAR HGB CONC 32 g/dl (31.0-36.0); MEAN CORPUSCULAR VOLUME 103 fL (80-96); MONOCYTES # (AUTO) 0.2 K/uL (0.1-1.30); MONOCYTES % (AUTO) 4.5 % (2.0-12.0); NEUTROPHILS # (AUTO) 3.7 K/uL (1.8-8.9); NEUTROPHILS % (AUTO) 89.8 % (43.0-81.0); PLATELET COUNT (AUTO) 148 K/uL (150-450); RED BLOOD CELL COUNT(AUTO) 2.02 MIL/uL (4.5-6.0); WHITE BLOOD COUNT (AUTO) 4.1 K/uL (4.3-11.0)
[2022-11-11 04:41] LABS: HEMOGLOBIN 6.5 g/dL (13.5-17.5)
[2022-11-11 04:51] LABS: CALCIUM, SERUM 7.8 mg/dL (8.5-10.1); CARBON DIOXIDE 25 mmol/L (21-32); CHLORIDE 100 mmol/L (98-107); CREATININE 3.6 mg/dL (0.6-1.3); GLUCOSE 261 mg/dL (74-106); MAGNESIUM 2.2 mg/dL (1.8-2.4); PHOSPHORUS 4.5 mg/dL (2.5-4.9); POTASSIUM 3.8 mmol/L (3.5-5.1); SODIUM SERUM 134 mmol/L (136-145); UREA NITROGEN, BLOOD 70 mg/dL (7-18)
[2022-11-11] MEDS: PROPOFOL 100 ML IV PRN (05:59)
[2022-11-11] MEDS: methylPREDNISolone SOD SUCC 125 MG/2ML VIAL IV SCH ×3 (06:00→21:20)
[2022-11-11] MEDS: INSULIN REGULAR, HUMAN 100 UNIT/ML 3 ML VIAL SQ PRN ×3 (06:01→23:44)
[2022-11-11] MEDS: PIPERACILLIN /TAZOBACTAM 2.25 G in IV D5W 50 ML IV SCH ×4 (06:03→23:37)
--- NOTE | 2022-11-11 07:14 | NUR ---
RECEIVED REPORT FROM [employer] TEXTILE DYER DONNA. PATIENT REMAINS INTUBATED AND SEDATED, TOLERATING VENT SETTINGS WELL. OFF PRESSORS AT THIS TIME. SINUS EDWARD ON THE MONITOR AT THIS TIME. BILATERAL WRIST RESTRAINTS IN PLACE, CIRCULATION IS WITHIN NORMAL LIMITS. NASOGASTRIC TUBE RUNNING GLUCERNA AT RATE OF 30 MLS/HR. IV ACCESS MAINTAINED AT LEFT AND RIGHT UPPER ARM MIDLINES. SAFETY MEASURES IMPLEMENTED. WILL CONTINUE PLAN OF CARE AND ANTICIPATE NEEDS.
--- NOTE | 2022-11-11 07:17 | NUR ---
endorse patient's status to Antonio boyle. Pt is sedated and continew Addendum: 11/11/22 at 0732 by REGISTRY [facility] INPATIENT RN4 RN Endorsed patient'ss tatus to JW Alvarez. Pt remains sedated on Propofol, as ordered. manolo refer to dosage on the nursing flow record. SBAR given to rn and Orders verified. Update HGB IS 6.5. Blood is not avaolable.
[2022-11-11] MEDS: SUCRALFATE 1 G/10 ML UDC NG SCH ×4 (07:38→21:19)
[2022-11-11] MEDS: PANTOPRAZOLE 40 MG/PACK PACK NG SCH ×2 (07:38→17:24)
[2022-11-11] MEDS: IPRATROPIUM NEB FS 0.5 MG/2.5 ML AMPUL.NEB NEB SCH ×3 (07:56→19:33)
--- NOTE | 2022-11-11 08:04 | NUR ---
PROPOFOL INFUSION HELD PER DR PAUL.
--- NOTE | 2022-11-11 08:19 | NUR ---
pt received on vent support via 8.0 et tube secured @ 25 cm line with vent settings below as ordered: ac 22 vt 525ml fio2 40% peep +5 breath sounds clear bilateral, sxn small amnt thick yan secretions. vent plugged into red outlet with alarms on and functioning. bvm @ bedside. Addendum: 11/11/22 at 0822 by AFSHAN SANTANA RT Amended: Links added.
[2022-11-11 08:43] LABS: LYMPHOCYTES % (MANUAL) 8 % (16-48); MONOCYTES % (MANUAL) 6 % (0-11.0); NEUTROPHILS % (MANUAL) 86 (42-76)
[2022-11-11] MEDS: CIPROFLOXACIN HCL 0.3% 5 ML BOTTLE EACHEYE SCH ×4 (08:57→21:20)
[2022-11-11] MEDS: FOLIC ACID 1 MG TABLET NG SCH ×2 (08:57→17:24)
[2022-11-11] MEDS: FERROUS SULFATE UDC 300 MG/5 ML UDC GT SCH ×2 (08:57→17:23)
[2022-11-11] MEDS: CYANOCOBALAMIN 500 MCG TABLET GT SCH (08:58)
[2022-11-11] MEDS: ASPIRIN 81 MG TAB.CHEW NG SCH (08:59)
[2022-11-11] MEDS: ALLOPURINOL 100 MG TABLET GT SCH ×2 (08:59→17:24)
[2022-11-11] MEDS: LEVOTHYROXINE SODIUM 75 MCG TABLET GT SCH (08:59)
[2022-11-11] MEDS: FUROSEMIDE 40 MG TABLET NG SCH (08:59)
[2022-11-11] MEDS: METOPROLOL SUCCINATE 50 MG TAB.SR.24H PO SCH (08:59)
--- NOTE | 2022-11-11 09:00 | NUR ---
TUBE FEEDING INFUSION RATE INCREASED TO 45 MLS/HR PER ORDER.
[2022-11-11] MEDS ORDERED: GLUCERNA 1.5 1,000 ML BOTTLE NG SCH (09:03)
[2022-11-11] MEDS: HEPARIN SODIUM, PORCINE 5000 UNITS/1 ML VIAL SQ SCH ×3 (09:03→23:33)
[2022-11-11 09:06] LABS: ABG BASE EXCESS -2.7 mmol/L; ABG OXYGEN SATURATION 97.5 % (92.0-98.5); ABG PCO2 35.4 mmHg (35.0-45.0); ABG PH 7.404 (7.350-7.450); AaDO2 139.5 mmHg; COHb 0.7 % (0.5-1.5); MetHb 0.5 % (0.0-1.5); O2Hb 96.3 % (94.0-97.0); PEEP,BG 5 cm H2O; SITE, ABG Right Radial; VT, ABG 525 mL
[2022-11-11] MEDS: PROSOURCE / PROSTAT (PYXIS) 30 ML UDC NG SCH ×3 (09:13→17:24)
[2022-11-11] MEDS: INSULIN GLARGINE, 100 UNIT/ML CARTRIDGE SQ SCH (09:19)
--- NOTE | 2022-11-11 09:19 | NUR ---
vent changes below per dr. garcía: ac 16 vt 500 ml fio2 28% rn notified Addendum: 11/11/22 at 0920 by AFSHAN SANTANA RT Amended: Links added.
[2022-11-11] MEDS: Z GUARD REMEDY 4 OZ OINT TP PRN (09:20)
[2022-11-11] MEDS: Z GUARD REMEDY 4 OZ OINT TP SCH (09:20)
[2022-11-11] MEDS: THERAHONEY GEL 1.5 OZ TUBE TP SCH (09:20)
[2022-11-11] MEDS ORDERED: NEPRO 1,000 ML BOTTLE GT PRN ×2 (11:00→19:30)
[2022-11-11] MEDS: SOD FERRIC GLUC 125 MG in IV NS 0.9% 100 ML IV SCH (14:06)
[2022-11-11] MEDS: EPOETIN ALFA-EPBX 4,000 UNIT/ML VIAL IV SCH (14:06)
--- NOTE | 2022-11-11 18:00 | NUR ---
RECEIVED VERBAL ORDER FROM DOCTOR ATTELAYNEI. CHANGE TUBE FEEDING RATE TO 30 MLS/HR TO PREVENT FLUID OVERLOAD. ORDER CARRIED OUT.
[2022-11-11] MEDS ORDERED: diphenhydrAMINE HCL 50 MG/ML VIAL IV PRN (18:30)
[2022-11-11] MEDS ORDERED: ACETAMINOPHEN 650 MG/20.3 ML UDC NG ONE (18:30)
--- NOTE | 2022-11-11 19:22 | NUR ---
HAND OFF REPORT GIVEN TO NIGHTSHIFT JW PETIT FOR CONTINUATION OF CARE.
--- NOTE | 2022-11-11 19:30 | NUR ---
PT AWAKE. ALERT, DROWSY. REMAINS INTUBATED, VENT SETTINGS AC 16/500/28/5. TOLERATING VENT SETTINGS WELL. OFF PRESSORS AT THIS TIME. SINUS RHYTHM AT THIS TIME. BILATERAL WRIST RESTRAINTS IN PLACE, CIRCULATION IS WITHIN NORMAL LIMITS. NASOGASTRIC TUBE INFUSING NEPRO AT RATE OF 30 MLS/HR. IV ACCESS MAINTAINED AT LEFT AND RIGHT UPPER ARM MIDLINES. BT INFUSING AT 120ML/HR, INFUSING NS ON TKO. TOLERATING WELL. SAFETY MEASURES IN PLACE. WILL CONTINUE PLAN OF CARE AND ANTICIPATE NEEDS.
[2022-11-11] MEDS: IV NS 0.9% 250 ML IV PRN (20:59)
[2022-11-11] MEDS: ATORVASTATIN 40 MG TABLET GT SCH (21:19)
[2022-11-12] VITALS (28 sets, daily range): BP systolic 103–182; BP diastolic 28–92
[2022-11-12] MEDS: IPRATROPIUM NEB FS 0.5 MG/2.5 ML AMPUL.NEB NEB SCH ×4 (01:07→19:48)
[2022-11-12] MEDS: VANCOMYCIN 500 MG in IV D5W 100 ML IV PRN ×2 (01:30→15:28)
[2022-11-12 04:00] LABS: BASOPHILS % (AUTO) 0.3 % (0.0-2.0); HEMATOCRIT 28 % (39-51); HEMOGLOBIN 8.8 g/dL (13.5-17.5); LYMPHOCYTES # (AUTO) 0.2 K/uL (0.8-4.8); LYMPHOCYTES % (AUTO) 3.4 % (20.0-44.0); MEAN CORPUSCULAR HGB CONC 31 g/dl (31.0-36.0); MEAN CORPUSCULAR VOLUME 96 fL (80-96); MONOCYTES # (AUTO) 0.3 K/uL (0.1-1.30); MONOCYTES % (AUTO) 6.4 % (2.0-12.0); NEUTROPHILS # (AUTO) 4.9 K/uL (1.8-8.9); NEUTROPHILS % (AUTO) 89.9 % (43.0-81.0); PLATELET COUNT (AUTO) 158 K/uL (150-450); RED BLOOD CELL COUNT(AUTO) 2.92 MIL/uL (4.5-6.0); WHITE BLOOD COUNT (AUTO) 5.4 K/uL (4.3-11.0)
[2022-11-12 04:14] LABS: CALCIUM, SERUM 7.9 mg/dL (8.5-10.1); CARBON DIOXIDE 25 mmol/L (21-32); CHLORIDE 100 mmol/L (98-107); CREATININE 2.9 mg/dL (0.6-1.3); GLUCOSE 327 mg/dL (74-106); MAGNESIUM 2.1 mg/dL (1.8-2.4); PHOSPHORUS 4.4 mg/dL (2.5-4.9); POTASSIUM 3.6 mmol/L (3.5-5.1); SODIUM SERUM 135 mmol/L (136-145); UREA NITROGEN, BLOOD 68 mg/dL (7-18)
[2022-11-12] MEDS: ALBUTEROL FS 2.5 MG/0.5 ML VIAL.NEB NEB SCH ×6 (04:14→23:33)
[2022-11-12] MEDS: methylPREDNISolone SOD SUCC 125 MG/2ML VIAL IV SCH ×3 (05:26→21:29)
[2022-11-12] MEDS: PIPERACILLIN /TAZOBACTAM 2.25 G in IV D5W 50 ML IV SCH ×4 (05:26→23:28)
[2022-11-12] MEDS: BLOOD SUGAR DIAGNOSTIC 1 EACH STRIP IN SCH ×4 (05:27→23:28)
[2022-11-12] MEDS: INSULIN REGULAR, HUMAN 100 UNIT/ML 3 ML VIAL SQ PRN ×4 (06:04→23:45)
--- NOTE | 2022-11-12 07:12 | NUR ---
PT ASLEEP. AWAKEN BY TOUCH. ALERT, DROWSY. REMAINS INTUBATED, VENT SETTINGS AC 16/500/28/5. TOLERATING VENT SETTINGS WELL. SINUS RHYTHM AT THIS TIME. BILATERAL WRIST RESTRAINTS IN PLACE, CIRCULATION IS WITHIN NORMAL LIMITS. NASOGASTRIC TUBE INFUSING NEPRO AT RATE OF 30 MLS/HR. IV ACCESS MAINTAINED AT LEFT AND RIGHT UPPER ARM MIDLINES. INFUSING NS ON TKO. TOLERATING WELL. NEEDS ATTENDED. SAFETY MEASURES MAINTAINED. WILL ENDORSE TO NEXT NURSE ON DUTY FOR CONTINUITY OF CARE.
[2022-11-12] MEDS: PROSOURCE / PROSTAT (PYXIS) 30 ML UDC NG SCH ×3 (09:14→16:05)
[2022-11-12] MEDS: LEVOTHYROXINE SODIUM 75 MCG TABLET GT SCH (09:15)
[2022-11-12] MEDS: PANTOPRAZOLE 40 MG/PACK PACK NG SCH ×2 (09:15→16:04)
[2022-11-12] MEDS: SUCRALFATE 1 G/10 ML UDC NG SCH ×4 (09:15→21:31)
[2022-11-12] MEDS: ASPIRIN 81 MG TAB.CHEW NG SCH (09:16)
[2022-11-12] MEDS: METOPROLOL SUCCINATE 50 MG TAB.SR.24H PO SCH (09:16)
[2022-11-12] MEDS: ALLOPURINOL 100 MG TABLET GT SCH ×2 (09:17→16:04)
[2022-11-12] MEDS: FOLIC ACID 1 MG TABLET NG SCH ×2 (09:17→16:04)
[2022-11-12] MEDS: CYANOCOBALAMIN 500 MCG TABLET GT SCH (09:17)
[2022-11-12] MEDS: FUROSEMIDE 40 MG TABLET NG SCH (09:17)
[2022-11-12] MEDS: HEPARIN SODIUM, PORCINE 5000 UNITS/1 ML VIAL SQ SCH ×2 (09:18→21:31)
[2022-11-12] MEDS: FERROUS SULFATE UDC 300 MG/5 ML UDC GT SCH ×2 (09:26→16:04)
[2022-11-12] MEDS: Z GUARD REMEDY 4 OZ OINT TP PRN (09:27)
[2022-11-12] MEDS: CIPROFLOXACIN HCL 0.3% 5 ML BOTTLE EACHEYE SCH ×4 (09:27→21:29)
[2022-11-12] MEDS: THERAHONEY GEL 1.5 OZ TUBE TP SCH (09:27)
[2022-11-12] MEDS: Z GUARD REMEDY 4 OZ OINT TP SCH (09:29)
[2022-11-12] MEDS: INSULIN GLARGINE, 100 UNIT/ML CARTRIDGE SQ SCH (10:07)
[2022-11-12] MEDS: SOD FERRIC GLUC 125 MG in IV NS 0.9% 100 ML IV SCH (14:07)
[2022-11-12 15:49] LABS: BASOPHILS % (AUTO) 0.3 % (0.0-2.0); HEMATOCRIT 31 % (39-51); HEMOGLOBIN 9.9 g/dL (13.5-17.5); LYMPHOCYTES # (AUTO) 0.2 K/uL (0.8-4.8); LYMPHOCYTES % (AUTO) 3.1 % (20.0-44.0); MEAN CORPUSCULAR HGB CONC 32 g/dl (31.0-36.0); MEAN CORPUSCULAR VOLUME 95 fL (80-96); MONOCYTES # (AUTO) 0.3 K/uL (0.1-1.30); NEUTROPHILS # (AUTO) 6.9 K/uL (1.8-8.9); NEUTROPHILS % (AUTO) 92.6 % (43.0-81.0); PLATELET COUNT (AUTO) 173 K/uL (150-450); RED BLOOD CELL COUNT(AUTO) 3.27 MIL/uL (4.5-6.0); WHITE BLOOD COUNT (AUTO) 7.4 K/uL (4.3-11.0)
--- NOTE | 2022-11-12 18:23 | NUR ---
MAINFRAME ARCHITECT 7A Shift note: PT RESTING COMFORTABLY IN BED. PT AROUSABLE/RESPONSIVE. AWAKEN BY TOUCH. ALERT. REMAINS INTUBATED, VENT SETTINGS AC 16/500/28/5. TOLERATING VENT SETTINGS WELL NOT TOLERATE SIMV MODE TRIAL THIS AM. PLACE BACK ON AC REMAINS SINUS RHYTHM AT THIS TIME. BILATERAL WRIST RESTRAINTS IN PLACE. CONT WITH CIRCULATION CHECKS/WNL NGT IN PLACE. RONALDO TF WELL. NEPRO INFUSING AT RATE OF 30 MLS/HR. IV ACCESS MAINTAINED AT LEFT AND RIGHT UPPER ARM MIDLINES. INFUSING NS ON TKO. CONT IV ABX PRESCRIBED SAFETY MEASURES ADDRESSED AND MAINTAINED AT ALL TIMES CONT WITH PLAN OF CARE
--- NOTE | 2022-11-12 19:30 | NUR ---
PT RESTING IN BED. AROUSABLE/RESPONSIVE. AWAKEN BY TOUCH. ALERT. REMAINS SINUS RHYTHM AT THIS TIME. REMAINS INTUBATED, VENT SETTINGS AC 16/500/28/5. TOLERATING VENT SETTINGS WELL. NGT IN PLACE. NEPRO INFUSING AT 30ML/HR. TOLERATING TF WELL. IV ACCESS AT LEFT AND RIGHT UPPER ARM MIDLINES, INFUSING NS ON TKO. BILATERAL WRIST RESTRAINTS IN PLACE. CIRCULATION CHECKED/WNL. SAFETY MEASURES IN PLACE. HEAD OF BED ELEVATED. CALL LIGHT WITHIN REACH. WILL CONTINUE PLAN OF CARE.
[2022-11-12] MEDS: ATORVASTATIN 40 MG TABLET GT SCH (21:31)
[2022-11-13] VITALS (53 sets, daily range): BP systolic 93–146; BP diastolic 27–74
[2022-11-13 00:04] LABS: ABG BASE EXCESS -3.3 mmol/L; ABG OXYGEN SATURATION 92.8 % (92.0-98.5); ABG PCO2 47.6 mmHg (35.0-45.0); ABG PH 7.304 (7.350-7.450); ABG PO2 71.9 mmHg (75.0-100.0); AaDO2 71.6 mmHg; COHb 0.7 % (0.5-1.5); MetHb 0.2 % (0.0-1.5); SITE, ABG Right Radial; VENT MODE, BG SIMV4 PS15 +5 28%
[2022-11-13] MEDS: IPRATROPIUM NEB FS 0.5 MG/2.5 ML AMPUL.NEB NEB SCH ×5 (02:05→22:52)
[2022-11-13 03:44] LABS: HEMATOCRIT 30 % (39-51); HEMOGLOBIN 9.8 g/dL (13.5-17.5); LYMPHOCYTES # (AUTO) 0.3 K/uL (0.8-4.8); LYMPHOCYTES % (AUTO) 3.5 % (20.0-44.0); MEAN CORPUSCULAR HGB CONC 33 g/dl (31.0-36.0); MEAN CORPUSCULAR VOLUME 94 fL (80-96); MONOCYTES # (AUTO) 0.3 K/uL (0.1-1.30); MONOCYTES % (AUTO) 4.3 % (2.0-12.0); NEUTROPHILS # (AUTO) 7.5 K/uL (1.8-8.9); NEUTROPHILS % (AUTO) 92.2 % (43.0-81.0); PLATELET COUNT (AUTO) 179 K/uL (150-450); RED BLOOD CELL COUNT(AUTO) 3.21 MIL/uL (4.5-6.0); WHITE BLOOD COUNT (AUTO) 8.2 K/uL (4.3-11.0)
[2022-11-13 04:03] LABS: CALCIUM, SERUM 8.1 mg/dL (8.5-10.1); CARBON DIOXIDE 22 mmol/L (21-32); CHLORIDE 99 mmol/L (98-107); CREATININE 3.3 mg/dL (0.6-1.3); GLUCOSE 244 mg/dL (74-106); POTASSIUM 3.7 mmol/L (3.5-5.1); SODIUM SERUM 135 mmol/L (136-145)
[2022-11-13 04:04] LABS: UREA NITROGEN, BLOOD 93 mg/dL (7-18)
[2022-11-13] MEDS: ALBUTEROL FS 2.5 MG/0.5 ML VIAL.NEB NEB SCH ×6 (04:23→22:52)
[2022-11-13] MEDS: BLOOD SUGAR DIAGNOSTIC 1 EACH STRIP IN SCH ×4 (05:39→23:33)
[2022-11-13] MEDS: methylPREDNISolone SOD SUCC 125 MG/2ML VIAL IV SCH ×3 (05:39→21:20)
[2022-11-13] MEDS: PIPERACILLIN /TAZOBACTAM 2.25 G in IV D5W 50 ML IV SCH ×4 (05:40→23:33)
[2022-11-13] MEDS: INSULIN REGULAR, HUMAN 100 UNIT/ML 3 ML VIAL SQ PRN ×4 (05:46→23:36)
--- NOTE | 2022-11-13 07:21 | NUR ---
PT ASLEEP IN BED. AROUSABLE/RESPONSIVE. AWAKEN BY TOUCH. ALERT. REMAINS SINUS RHYTHM AT THIS TIME. REMAINS INTUBATED, VENT SETTINGS AC 16/500/30/5. TOLERATING VENT SETTINGS WELL. RT NARE NGT IN PLACE. NEPRO INFUSING AT 30ML/HR. TOLERATING TF WELL. IV ACCESS AT LEFT AND RIGHT UPPER ARM MIDLINES, INFUSING NS ON TKO. BILATERAL WRIST RESTRAINTS IN PLACE. CIRCULATION CHECKED/WNL. NEEDS ATTENDED. KEPT CLEAN AND DRY. SAFETY MEASURES MAINTAINED. HEAD OF BED ELEVATED. CALL LIGHT WITHIN REACH. WILL ENDORSE TO NEXT NURSE ON DUTY FOR CONTINUITY OF CARE.
[2022-11-13 07:44] LABS: LYMPHOCYTES % (MANUAL) 5 % (16-48); METAMYELOCYTES % 1 % (0-0); MONOCYTES % (MANUAL) 1 % (0-11.0); MYELOCYTES % 1 % (0-0); NEUTROPHILS % (MANUAL) 92 (42-76)
[2022-11-13] MEDS: ALLOPURINOL 100 MG TABLET GT SCH ×2 (08:41→17:10)
[2022-11-13] MEDS: PANTOPRAZOLE 40 MG/PACK PACK NG SCH ×2 (08:41→17:10)
[2022-11-13] MEDS: SUCRALFATE 1 G/10 ML UDC NG SCH ×4 (08:41→21:20)
[2022-11-13] MEDS: LEVOTHYROXINE SODIUM 75 MCG TABLET GT SCH (08:42)
[2022-11-13] MEDS: ASPIRIN 81 MG TAB.CHEW NG SCH (08:42)
[2022-11-13] MEDS: FERROUS SULFATE UDC 300 MG/5 ML UDC GT SCH ×2 (08:42→17:10)
[2022-11-13] MEDS: CYANOCOBALAMIN 500 MCG TABLET GT SCH (08:42)
[2022-11-13] MEDS: FUROSEMIDE 40 MG TABLET NG SCH (08:43)
[2022-11-13] MEDS: FOLIC ACID 1 MG TABLET NG SCH ×2 (08:43→17:10)
[2022-11-13] MEDS: METOPROLOL SUCCINATE 50 MG TAB.SR.24H PO SCH (08:44)
[2022-11-13] MEDS: HEPARIN SODIUM, PORCINE 5000 UNITS/1 ML VIAL SQ SCH ×2 (08:51→21:23)
[2022-11-13] MEDS: INSULIN GLARGINE, 100 UNIT/ML CARTRIDGE SQ SCH (08:52)
[2022-11-13] MEDS: THERAHONEY GEL 1.5 OZ TUBE TP SCH (08:53)
[2022-11-13] MEDS: Z GUARD REMEDY 4 OZ OINT TP SCH (08:53)
[2022-11-13] MEDS: PROSOURCE / PROSTAT (PYXIS) 30 ML UDC NG SCH ×3 (08:55→17:11)
[2022-11-13] MEDS: CIPROFLOXACIN HCL 0.3% 5 ML BOTTLE EACHEYE SCH ×4 (08:56→21:19)
[2022-11-13] MEDS ORDERED: DC PROPOFOL WHEN EXTUBATED XX PRN (13:10)
--- NOTE | 2022-11-13 13:15 | NUR ---
S/P EXTUBATION, N-CANNULA AT 5LPM. NO SSX OF ACUTE DISTRESS NOTED
[2022-11-13] MEDS: SOD FERRIC GLUC 125 MG in IV NS 0.9% 100 ML IV SCH (14:25)
[2022-11-13] MEDS: EPOETIN ALFA-EPBX 4,000 UNIT/ML VIAL IV SCH (14:49)
--- NOTE | 2022-11-13 19:32 | NUR ---
PT AWAKE. A/OX3. SINUS TACHY ON MONITOR HR 105 AT THIS TIME. EXTUBATED ON 11/13/22 AT 13:15. TOLERATING NC AT 5LPM. O2SAT AT 94%. RT NARE NGT IN PLACE. NEPRO INFUSING AT 40ML/HR. TOLERATING TF WELL. IV ACCESS AT LEFT AND RIGHT UPPER ARM MIDLINES, INFUSING NS ON TKO. BILATERAL WRIST RESTRAINTS IN PLACE. CIRCULATION CHECKED/WNL. FLEXISEAL IN PLACE. SAFETY MEASURES IN PLACE. HEAD OF BED ELEVATED. CALL LIGHT WITHIN REACH. WILL CONTINUE PLAN OF CARE.
--- NOTE | 2022-11-13 20:00 | NUR ---
O2 SAT 87% TO 91%. ENCOURAGE INCENTIVE SPIROMETER BUT UNABLE. SUCTIONED SECRETIONS. TUBE FEEDING INCREASED TO 50ML/HR. WILL CHECK RESIDUAL AND TOLERANCE.
[2022-11-13] MEDS: ATORVASTATIN 40 MG TABLET GT SCH (21:21)
[2022-11-13] MEDS ORDERED: diphenhydrAMINE HCL ELIX 25 MG/10 ML UDC GT ONE (22:00)
[2022-11-13] MEDS ORDERED: diphenhydrAMINE HCL ELIX 25 MG/10 ML UDC ONE (22:24)
[2022-11-14] VITALS (44 sets, daily range): BP systolic 82–170; BP diastolic 24–74
[2022-11-14] MEDS: ALBUTEROL FS 2.5 MG/0.5 ML VIAL.NEB NEB SCH ×6 (03:44→23:32)
[2022-11-14 04:20] LABS: BASOPHILS % (AUTO) 0.1 % (0.0-2.0); HEMATOCRIT 37 % (39-51); HEMOGLOBIN 11.4 g/dL (13.5-17.5); LYMPHOCYTES # (AUTO) 0.8 K/uL (0.8-4.8); LYMPHOCYTES % (AUTO) 4.5 % (20.0-44.0); MEAN CORPUSCULAR HGB CONC 31 g/dl (31.0-36.0); MEAN CORPUSCULAR VOLUME 98 fL (80-96); MONOCYTES # (AUTO) 0.6 K/uL (0.1-1.30); MONOCYTES % (AUTO) 3.4 % (2.0-12.0); NEUTROPHILS # (AUTO) 16.1 K/uL (1.8-8.9); PLATELET COUNT (AUTO) 359 K/uL (150-450); RED BLOOD CELL COUNT(AUTO) 3.78 MIL/uL (4.5-6.0); WHITE BLOOD COUNT (AUTO) 17.5 K/uL (4.3-11.0)
[2022-11-14 04:31] LABS: CALCIUM, SERUM 8.3 mg/dL (8.5-10.1); CARBON DIOXIDE 26 mmol/L (21-32); CHLORIDE 99 mmol/L (98-107); CREATININE 3.1 mg/dL (0.6-1.3); GLUCOSE 268 mg/dL (74-106); MAGNESIUM 2.3 mg/dL (1.8-2.4); PHOSPHORUS 7.7 mg/dL (2.5-4.9); POTASSIUM 3.8 mmol/L (3.5-5.1); SODIUM SERUM 135 mmol/L (136-145)
[2022-11-14 04:45] LABS: UREA NITROGEN, BLOOD 85 mg/dL (7-18)
--- NOTE | 2022-11-14 04:48 | NUR ---
BUN 87, TROP 90.9. CHARGE NURSE INFORMED.
[2022-11-14] MEDS: BLOOD SUGAR DIAGNOSTIC 1 EACH STRIP IN SCH ×3 (05:00→18:51)
[2022-11-14] MEDS: methylPREDNISolone SOD SUCC 125 MG/2ML VIAL IV SCH ×3 (05:00→21:00)
[2022-11-14] MEDS: PIPERACILLIN /TAZOBACTAM 2.25 G in IV D5W 50 ML IV SCH ×4 (05:01→23:28)
[2022-11-14] MEDS: INSULIN REGULAR, HUMAN 100 UNIT/ML 3 ML VIAL SQ PRN ×3 (05:18→17:32)
--- NOTE | 2022-11-14 07:16 | NUR ---
PT ASLEEP. AROUSABLE/RESPONSIVE. A/OX3. SINUS TACHY ON MONITOR. EXTUBATED ON 11/13/22 AT 13:15. 02SAT 85 PLACED ON NRB , O2SAT WENT UP TO 97%, RT PLACED SIMPLE MASK AT 8LPM. RT NARE NGT IN PLACE. NEPRO INFUSING AT 30ML/HR. TOLERATING TF WELL. IV ACCESS AT LEFT AND RIGHT UPPER ARM MIDLINES. FLEXISEAL IN PLACE. NEEDS ATTENDED. SAFETY MEASURES MAINTAINED. HEAD OF BED ELEVATED. CALL LIGHT WITHIN REACH. WILL ENDORSE TO NEXT NURSE ON DUTY FOR CONTINUITY OF CARE.
[2022-11-14] MEDS: IPRATROPIUM NEB FS 0.5 MG/2.5 ML AMPUL.NEB NEB SCH ×4 (07:35→23:32)
[2022-11-14 08:15] LABS: BASOPHILS % (AUTO) 0.1 % (0.0-2.0); HEMATOCRIT 37 % (39-51); HEMOGLOBIN 11.3 g/dL (13.5-17.5); LYMPHOCYTES # (AUTO) 0.3 K/uL (0.8-4.8); LYMPHOCYTES % (AUTO) 1.3 % (20.0-44.0); MEAN CORPUSCULAR HGB CONC 30 g/dl (31.0-36.0); MEAN CORPUSCULAR VOLUME 100 fL (80-96); MONOCYTES # (AUTO) 1.3 K/uL (0.1-1.30); MONOCYTES % (AUTO) 6.4 % (2.0-12.0); NEUTROPHILS % (AUTO) 92.2 % (43.0-81.0); PLATELET COUNT (AUTO) 321 K/uL (150-450); RED BLOOD CELL COUNT(AUTO) 3.71 MIL/uL (4.5-6.0); WHITE BLOOD COUNT (AUTO) 20.6 K/uL (4.3-11.0)
--- NOTE | 2022-11-14 08:28 | NUR ---
Pt. Reintubated secondary to Critical ABG noted. Family notified and aware. Family wishes to reintubate for the second Cont with vent management follow up CXR and ABG per protocol
[2022-11-14] MEDS: NOREPINEPHRINE 8 MG in IV NS 0.9% 242 ML IV PRN (08:41)
[2022-11-14] MEDS: FUROSEMIDE 40 MG TABLET NG SCH (09:00)
[2022-11-14] MEDS: METOPROLOL SUCCINATE 50 MG TAB.SR.24H PO SCH (09:00)
[2022-11-14] MEDS: LEVOTHYROXINE SODIUM 75 MCG TABLET GT SCH (09:47)
[2022-11-14] MEDS: FERROUS SULFATE UDC 300 MG/5 ML UDC GT SCH ×2 (09:47→18:30)
[2022-11-14] MEDS: ALLOPURINOL 100 MG TABLET GT SCH ×2 (09:48→18:36)
[2022-11-14] MEDS: FOLIC ACID 1 MG TABLET NG SCH ×2 (09:48→18:36)
[2022-11-14] MEDS: ASPIRIN 81 MG TAB.CHEW NG SCH (09:48)
[2022-11-14] MEDS: CYANOCOBALAMIN 500 MCG TABLET GT SCH (09:49)
[2022-11-14] MEDS: INSULIN GLARGINE, 100 UNIT/ML CARTRIDGE SQ SCH (09:50)
[2022-11-14] MEDS: Z GUARD REMEDY 4 OZ OINT TP SCH (09:54)
[2022-11-14] MEDS: THERAHONEY GEL 1.5 OZ TUBE TP SCH (09:54)
[2022-11-14] MEDS: PROSOURCE / PROSTAT (PYXIS) 30 ML UDC NG SCH ×3 (09:55→18:51)
[2022-11-14] MEDS: SUCRALFATE 1 G/10 ML UDC NG SCH ×4 (10:01→21:00)
[2022-11-14] MEDS: PANTOPRAZOLE 40 MG/PACK PACK NG SCH ×2 (10:01→18:30)
[2022-11-14] MEDS: CIPROFLOXACIN HCL 0.3% 5 ML BOTTLE EACHEYE SCH ×4 (10:22→21:11)
[2022-11-14] MEDS ORDERED: SUCCINYLCHOLINE CHLORIDE 20 MG/ML VIAL IV ONE (11:43)
[2022-11-14] MEDS ORDERED: ETOMIDATE 2 MG/ML VIAL IV ONE (11:43)
[2022-11-14 16:45] LABS: BAND % (MANUAL) 3 % (0.0-5.0); EOSINOPHILS % (MANUAL) 1 % (0-4); LYMPHOCYTES % (MANUAL) 6 % (16-48); MONOCYTES % (MANUAL) 2 % (0-11.0); NEUTROPHILS % (MANUAL) 88 (42-76)
[2022-11-14] MEDS: VANCOMYCIN 500 MG in IV D5W 100 ML IV PRN (17:00)
--- NOTE | 2022-11-14 19:21 | NUR ---
JW LARRY NOTIFIED ME ABOUT VENT CHANGES PER DR PAUL. RATE CHANGED TO 12 AND VT TO 475.
--- NOTE | 2022-11-14 20:00 | NUR ---
RN NOTE RECEIVED PT IN BED, ALERT, AWAKE, ABLE TO MAKE NEEDS KNOWN. PT INTUBATED, CURRENT VENT SETTINGS WELL RONALDO. NO S/SX OF ACUTE RESP DISTRESS NOTED. PT CURRENTLY ON LEVOPHED DRIP AT 0.04MCG, BP WNL. ATTACHED TO BEDSIDE BEAN PICKER CURRENT READING SR. PT NOTED WITH NGT ON RT NARE, PATENT, IN PLACED, CURRENTLY INFUSING NEPRO AT 30ML/HR, WELL RONALDO. NO RESIDUAL NOTED. HOB ELEVATED. SAFETY PRECAUTION IMPLEMENTED. CALL LIGHT WITHIN EASY REACH. FAMILY AT BEDSIDE. WILL CONT POC.
[2022-11-14] MEDS: ATORVASTATIN 40 MG TABLET GT SCH (21:00)
[2022-11-14 21:36] LABS: ABG BASE EXCESS -4.5 mmol/L; ABG OXYGEN SATURATION 96.1 % (92.0-98.5); ABG PCO2 44.3 mmHg (35.0-45.0); ABG PH 7.308 (7.350-7.450); ABG PO2 88.9 mmHg (75.0-100.0); COHb 0.9 % (0.5-1.5); MetHb 0.4 % (0.0-1.5); O2Hb 94.9 % (94.0-97.0); SITE, ABG Right Radial
--- NOTE | 2022-11-14 22:30 | NUR ---
RN NOTE TF ON HOLD D/T RESIDUAL 160ML, GREENISH IN COLOR. Addendum: 11/15/22 at 0704 by CM MENDEZ RN PLEASE DISREGARD. WRONG PT ENTRY
[2022-11-15] VITALS (70 sets, daily range): BP systolic 59–143; BP diastolic 27–75
[2022-11-15] MEDS: INSULIN REGULAR, HUMAN 100 UNIT/ML 3 ML VIAL SQ PRN ×5 (00:43→23:51)
[2022-11-15] MEDS: BLOOD SUGAR DIAGNOSTIC 1 EACH STRIP IN SCH ×5 (00:44→23:46)
[2022-11-15] MEDS: NOREPINEPHRINE 8 MG in IV NS 0.9% 242 ML IV PRN (00:58)
[2022-11-15] MEDS: ALBUTEROL FS 2.5 MG/0.5 ML VIAL.NEB NEB SCH ×6 (03:40→23:34)
[2022-11-15] MEDS: NEPRO 1,000 ML BOTTLE GT PRN (03:51)
[2022-11-15 04:35] LABS: EOSINOPHILS % (AUTO) 0.1 % (0.0-6.0); HEMATOCRIT 31 % (39-51); HEMOGLOBIN 9.8 g/dL (13.5-17.5); LYMPHOCYTES # (AUTO) 0.3 K/uL (0.8-4.8); LYMPHOCYTES % (AUTO) 3.1 % (20.0-44.0); MEAN CORPUSCULAR HGB CONC 32 g/dl (31.0-36.0); MEAN CORPUSCULAR VOLUME 95 fL (80-96); MONOCYTES # (AUTO) 0.3 K/uL (0.1-1.30); NEUTROPHILS # (AUTO) 9.5 K/uL (1.8-8.9); NEUTROPHILS % (AUTO) 93.8 % (43.0-81.0); PLATELET COUNT (AUTO) 229 K/uL (150-450); RED BLOOD CELL COUNT(AUTO) 3.24 MIL/uL (4.5-6.0); WHITE BLOOD COUNT (AUTO) 10.1 K/uL (4.3-11.0)
[2022-11-15 05:06] LABS: CALCIUM, SERUM 8.4 mg/dL (8.5-10.1); CARBON DIOXIDE 21 mmol/L (21-32); CHLORIDE 98 mmol/L (98-107); CREATININE 4.1 mg/dL (0.6-1.3); GLUCOSE 255 mg/dL (74-106); POTASSIUM 3.3 mmol/L (3.5-5.1); SODIUM SERUM 135 mmol/L (136-145)
[2022-11-15 05:17] LABS: UREA NITROGEN, BLOOD 122 mg/dL (7-18)
[2022-11-15] MEDS: methylPREDNISolone SOD SUCC 125 MG/2ML VIAL IV SCH ×3 (05:20→21:00)
[2022-11-15] MEDS: PIPERACILLIN /TAZOBACTAM 2.25 G in IV D5W 50 ML IV SCH ×4 (05:20→23:53)
--- NOTE | 2022-11-15 06:22 | NUR ---
RN NOTE NOTIFIED MD PATRICK REGARDING PT'S TROPONIN LEVEL 287. AWATING FOR RESPONSE.
--- NOTE | 2022-11-15 06:52 | NUR ---
RN NOTE PT AWAKE, VERBALLY RESPONSIVE. DENIES PAIN/DISCOMFORT AT THIS TIME. HFNC DECREASED TO 50%FIO2, O2 SAT 95%. PT REMAINS IN STABLE CONDITION. VSS. REMAINS ON AMIO DRIP DOSE RATE AT 0.5MG, HEPARIN DRIP AT 1400U (28ML/HR) ORDERED. ATTACHED TO BEDSIDE TRANSPORTATION MANAGER, PT WITH A.FIB RVR HR 110-120'S. NGT FEEDING REMAINS ON HOLD D/T RESIDUAL 120ML, GREENISH IN COLOR. NO S/SX OF ACTIVE BLEEDING. PT SKIN REMAINS JAUNDICED. WILL ENDORSE TO AM SHIFT. Addendum: 11/15/22 at 0703 by CM MENDEZ RN PLEASE DISREGARD. WRONG PATIENT ENTRY
--- NOTE | 2022-11-15 07:13 | NUR ---
RN NOTE PT REMAINS IN STABLE CONDITION, ALERT, AWAKE AND ORIENTED, ABLE TO MAKE NEEDS KNOWN. REMAINS INTUBATED, CURRENT SETTINGS WELL RONALDO. NO SIGNIFICANT CHANGES NOTED. ALL NEEDS ATTENDED. REMAINS ON LEVO DOSE RATE AT 0.06MCG, BP WNL. ATTACHED TO ADMISSIONS DEAN READING SR.TF NEPRO AT 30ML/HR ORDERED, WELL RONALDO, 0 RESIDUAL, PATENT AND IN PLACED. HOB ELEVATED AT ALL TIMES. HAND OFF REPORT GIVEN TO AM SHIFT NURSE.
--- NOTE | 2022-11-15 07:30 | NUR ---
OPENING NOTE: REPORT RECEIVED FROM DALIA ESCALERA. ORDERS AND LABS REVIEWED DURING REPORT. PT IS INTUBATED, NOT SEDATED. PT IS ALERT OX3, ABLE TO MAKE NEEDS KNOWN THROUGH MOUTHING WORDS OR USING LETTER BOARD. PT DOES NOT APPEAR TO BE IN ANY DISTRESS AT THIS TIME. PT IS SCHEDULED FOR HD TODAY, PHARMACY NOTIFIED OF NEED FOR VANCO TROUGH OR RANDOM PRIOR TO HD OR PRN VANCO DOSE POST HD. LEVOPHED GTT INFUSING PER MD ORDERS AT 0.06 MCG/KG/MIN, TITRATING PER MD ORDERS. PT CHECKED ON HOURLY AND PRN BY NURSING STAFF.
[2022-11-15] MEDS: IPRATROPIUM NEB FS 0.5 MG/2.5 ML AMPUL.NEB NEB SCH ×4 (07:35→23:34)
[2022-11-15] MEDS: FUROSEMIDE 40 MG TABLET NG SCH (09:00)
[2022-11-15] MEDS: METOPROLOL SUCCINATE 50 MG TAB.SR.24H PO SCH (09:00)
[2022-11-15] MEDS: SUCRALFATE 1 G/10 ML UDC NG SCH ×4 (09:10→21:02)
[2022-11-15] MEDS: PANTOPRAZOLE 40 MG/PACK PACK NG SCH ×2 (09:10→17:50)
[2022-11-15] MEDS: CIPROFLOXACIN HCL 0.3% 5 ML BOTTLE EACHEYE SCH ×4 (09:15→21:00)
[2022-11-15] MEDS: INSULIN GLARGINE, 100 UNIT/ML CARTRIDGE SQ SCH (09:32)
[2022-11-15] MEDS: FERROUS SULFATE UDC 300 MG/5 ML UDC GT SCH ×2 (09:35→17:46)
[2022-11-15] MEDS: ALLOPURINOL 100 MG TABLET GT SCH ×2 (09:35→17:46)
[2022-11-15] MEDS: LEVOTHYROXINE SODIUM 75 MCG TABLET GT SCH (09:35)
[2022-11-15] MEDS: FOLIC ACID 1 MG TABLET NG SCH ×2 (09:35→17:46)
[2022-11-15] MEDS: ASPIRIN 81 MG TAB.CHEW NG SCH (09:35)
[2022-11-15] MEDS: CYANOCOBALAMIN 500 MCG TABLET GT SCH (09:36)
[2022-11-15] MEDS: PROSOURCE / PROSTAT (PYXIS) 30 ML UDC NG SCH ×3 (09:40→17:55)
[2022-11-15] MEDS: Z GUARD REMEDY 4 OZ OINT TP SCH (11:17)
[2022-11-15] MEDS: THERAHONEY GEL 1.5 OZ TUBE TP SCH (11:17)
[2022-11-15] MEDS ORDERED: POTASSIUM CHLORIDE 20 MEQ POWDER PACKET PO ONE (11:30)
[2022-11-15] MEDS: VANCOMYCIN 500 MG in IV D5W 100 ML IV PRN (15:34)
[2022-11-15] MEDS: EPOETIN ALFA-EPBX 4,000 UNIT/ML VIAL IV SCH (15:36)
--- NOTE | 2022-11-15 19:00 | NUR ---
END OF SHIFT NOTE: FAMILY CONFERENCE TODAY. PER DR PAUL AND PT'S DAUGHTER NEHA PT WILL REMAIN FULL CODE UNTIL FRIDAY. FRIDAY IS PATIENTS OTHER DAUGHTERS BIRTHDAY, PT STATES HE DOES NOT WANT TO PASS AWAY ON HER BIRTHDAY. ON FRIDAY PT WILL HAVE A BRIEF CPAP TRIAL THEN WHEN FAMILY ARRIVES AND ARE READY PT WILL BE MADE DNR, PT WILL BE EXTUBATED, NG TUBE WILL REMAIN FOR TUBE FEEDING AND MEDS, PT WILL GET RESCUE BIPAP AND BIPAP AT NIGHT. NO REINTUBATION, NO TRACH AND NO PEG TUBE. PT WILL NOT BE COMFORT CARE AT THAT POINT PER DAUGHTER NEHA, MAYBE SOME TIME IN THE FUTURE WHEN PATIENTS CONDITION, PATIENT AND FAMILY ARE READY. PT HAD HD TODAY, 3L REMOVED. LEVOPHED CONTINUES TO INFUSE PER MD ORDERS, CURRENTLY INFUSING AT 0.02 MCG/KG/MIN. PT CHECKED ON HOURLY AND PRN BY NURSING STAFF.
--- NOTE | 2022-11-15 19:15 | NUR ---
Pt is noted Lethargic, responsive but nonverbal due to ET-Tube with Vent therapy in progress as report is received from the off going nurse. Sinus Rhythm on the Tele monitor with Levo 0.02mcg infusing and Blood pressure is been monitor closely , Diminished Lungs sound with ETT 7.5/23.0 to vent therapy and setting are 12, 40% and 475. Skin cool with skin areas noted, Generalizer edema, please see skin assessment sheet in chart. Pt is noted with Rectal Tube , Flex Seal , Midlines x2 to both Upper Arms,Right Subclavian Hemodialysis Access with S/P 3Liters out put noted during the day shift Hemodialysis therapy per day shift nurse and Right Nare NG-Tube with feeding Nephro at 30ML/HR. Pt care continue as he will be monitor closely while turn and reposition Q2HRS for comfort during the shift.
--- NOTE | 2022-11-15 20:46 | NUR ---
Pt remain full code with family at bedside as DR. Swan called with updates given on Pt conditions. Pt care continue.
[2022-11-15] MEDS: ATORVASTATIN 40 MG TABLET GT SCH (21:00)
--- NOTE | 2022-11-15 21:30 | NUR ---
DR. Swan noted at bedside rounding on Pt as he updates Pt family that is at bedside on Pt plan off care. Pt care continue as he is been monitor closely.
[2022-11-16] VITALS (92 sets, daily range): BP systolic 46–162; BP diastolic 22–106
--- NOTE | 2022-11-16 00:42 | NUR ---
Pt remain fullcode with ETT-Vent therapy in progress and Levo 0.02 gtt therapy in progress. Pt care continue with feeding infusing as ordered with NG-Tube remain in place.
[2022-11-16] MEDS: ALBUTEROL FS 2.5 MG/0.5 ML VIAL.NEB NEB SCH ×6 (03:10→23:20)
--- NOTE | 2022-11-16 04:27 | NUR ---
Pt is sleeping after AM and wound care done with Levo gtt and remain Intubated with feeding infusing as ordered. Pt care continue.
[2022-11-16] MEDS: PANTOPRAZOLE 40 MG/PACK PACK NG SCH ×2 (06:04→16:30)
[2022-11-16] MEDS: PIPERACILLIN /TAZOBACTAM 2.25 G in IV D5W 50 ML IV SCH ×4 (06:04→23:25)
[2022-11-16] MEDS: methylPREDNISolone SOD SUCC 125 MG/2ML VIAL IV SCH ×3 (06:04→21:06)
[2022-11-16] MEDS: SUCRALFATE 1 G/10 ML UDC NG SCH ×4 (06:04→21:06)
[2022-11-16] MEDS: BLOOD SUGAR DIAGNOSTIC 1 EACH STRIP IN SCH ×4 (06:18→23:16)
[2022-11-16] MEDS: INSULIN REGULAR, HUMAN 100 UNIT/ML 3 ML VIAL SQ PRN ×4 (06:21→23:21)
--- NOTE | 2022-11-16 07:15 | NUR ---
RN OPENING NOTE PT IN STABLE CONDITION, A/OX3-4 ABLE TO MAKE NEEDS KNOWN. PATIENT REMAINS INTUBATED. DIALYSIS WILL START AT [phone]. ALL NEEDS ATTENDED. ON LEVO DOSE RATE AT 0.02MCG. ATTACHED TO PIPING MANAGER READING SR.TF NEPRO AT 30ML/HR ORDERED, TOLERATING WELL, PATENT AND IN PLACED. HOB ELEVATED AT ALL TIMES. WILL MONITOR THE PATIENT THROUGHOUT THE SHIFT.
--- NOTE | 2022-11-16 07:25 | NUR ---
CBC AND BMP ORDER STAT UNDER DR. MARIE PER DIALYSIS NURSE REQUEST.
--- NOTE | 2022-11-16 07:27 | NUR ---
Pt care continue as report is given to the AM receiving Nurse.
[2022-11-16] MEDS: IPRATROPIUM NEB FS 0.5 MG/2.5 ML AMPUL.NEB NEB SCH ×3 (07:35→20:06)
[2022-11-16 08:27] LABS: CALCIUM, SERUM 8.6 mg/dL (8.5-10.1); CARBON DIOXIDE 20 mmol/L (21-32); CHLORIDE 98 mmol/L (98-107); CREATININE 4.2 mg/dL (0.6-1.3); GLUCOSE 326 mg/dL (74-106); POTASSIUM 3.1 mmol/L (3.5-5.1); SODIUM SERUM 135 mmol/L (136-145)
[2022-11-16 08:35] LABS: UREA NITROGEN, BLOOD 122 mg/dL (7-18)
[2022-11-16 08:37] LABS: BASOPHILS % (AUTO) 0.1 % (0.0-2.0); EOSINOPHILS % (AUTO) 0.2 % (0.0-6.0); HEMATOCRIT 30 % (39-51); HEMOGLOBIN 9.6 g/dL (13.5-17.5); LYMPHOCYTES # (AUTO) 0.2 K/uL (0.8-4.8); LYMPHOCYTES % (AUTO) 2.5 % (20.0-44.0); MEAN CORPUSCULAR HGB CONC 32 g/dl (31.0-36.0); MEAN CORPUSCULAR VOLUME 95 fL (80-96); MONOCYTES # (AUTO) 0.3 K/uL (0.1-1.30); MONOCYTES % (AUTO) 3.2 % (2.0-12.0); NEUTROPHILS # (AUTO) 9.5 K/uL (1.8-8.9); PLATELET COUNT (AUTO) 224 K/uL (150-450); RED BLOOD CELL COUNT(AUTO) 3.13 MIL/uL (4.5-6.0)
[2022-11-16] MEDS: LEVOTHYROXINE SODIUM 75 MCG TABLET GT SCH (08:41)
[2022-11-16] MEDS: FOLIC ACID 1 MG TABLET NG SCH ×2 (08:41→16:31)
[2022-11-16] MEDS: CYANOCOBALAMIN 500 MCG TABLET GT SCH (08:41)
[2022-11-16] MEDS: ASPIRIN 81 MG TAB.CHEW NG SCH (08:41)
[2022-11-16] MEDS: ALLOPURINOL 100 MG TABLET GT SCH ×2 (08:41→16:31)
[2022-11-16] MEDS: FERROUS SULFATE UDC 300 MG/5 ML UDC GT SCH ×2 (08:41→16:30)
[2022-11-16] MEDS: THERAHONEY GEL 1.5 OZ TUBE TP SCH (08:42)
[2022-11-16] MEDS: Z GUARD REMEDY 4 OZ OINT TP SCH (08:42)
[2022-11-16] MEDS: PROSOURCE / PROSTAT (PYXIS) 30 ML UDC NG SCH ×3 (08:43→16:31)
[2022-11-16] MEDS: CIPROFLOXACIN HCL 0.3% 5 ML BOTTLE EACHEYE SCH ×4 (08:45→21:29)
[2022-11-16] MEDS: INSULIN GLARGINE, 100 UNIT/ML CARTRIDGE SQ SCH (08:52)
--- NOTE | 2022-11-16 09:38 | NUR ---
DONE WITH DIALYSIS THE NURSE REPORTED 3 LITERS OUTPUT. PATIENT'S BP 150/55 HR: 83 O2:99% RR: 19
[2022-11-16] MEDS: METOPROLOL SUCCINATE 50 MG TAB.SR.24H PO SCH (09:42)
[2022-11-16] MEDS: FUROSEMIDE 40 MG TABLET NG SCH (09:42)
--- NOTE | 2022-11-16 10:00 | NUR ---
LEVO HELD AT 1100 BY CHARGE NURSE AFTER DIALYSIS PATIENT TOLERATED WELL SBP REMAINED ABOVE 90 DURING THE DIALYSIS.
[2022-11-16] MEDS ORDERED: PRECEDEX 400 MCG/100 ML BOTTLE 100 ML IV PRN (12:00)
[2022-11-16] MEDS: NEPRO 1,000 ML BOTTLE GT PRN (13:07)
[2022-11-16 15:00] LABS: EOSINOPHILS % (MANUAL) 1 % (0-4); LYMPHOCYTES % (MANUAL) 8 % (16-48); METAMYELOCYTES % 1 % (0-0); MONOCYTES % (MANUAL) 3 % (0-11.0); NEUTROPHILS % (MANUAL) 87 (42-76)
--- NOTE | 2022-11-16 16:22 | NUR ---
DR. PATRICK ORDERED 40 MEQ POTASSIUM POWDER ONCE THROUGH TrekeaTUBE OVER THE PHONE.
[2022-11-16] MEDS ORDERED: POTASSIUM CHLORIDE 20 MEQ POWDER PACKET GT SCH (16:30)
--- NOTE | 2022-11-16 17:00 | NUR ---
DR. PATRICK ORDERED TO DC THE TKO 10ML/HR. JUST FLUSH THE MIDLINE
--- NOTE | 2022-11-16 19:00 | NUR ---
RN CLOSING NOTE PT IN BED AWAKE, A/OX3-4 ABLE TO MAKE NEEDS KNOWN. PATENT'S RELATIVE ON BED SIDE. PATIENT REMAINS INTUBATED. ALL NEEDS ATTENDED. ATTACHED TO BOAT CREW DECK HAND READING SR WITH PACs. NEPRO AT 30ML/HR ORDERED, TOLERATING WELL, PATENT KEPT CLEAN AND DRY ALL DUE MEDS ADMINISTERED VIA NGT RIGHT NARE, ALL SAFETY PRECAUTIONS IMPLEMENTED. HOB ELEVATED AT ALL TIMES. PATIENT ENDORSED TO THE SHUTTLE PREPARATION SUPERVISOR NURSE FOR PANDA.
--- NOTE | 2022-11-16 19:20 | NUR ---
Pt is noted alert, responsive but nonverbal due to ET-Tube with Vent therapy in progress as report is received from the off going nurse. Sinus Rhythm with PAC on the Tele monitor as S/P Levo 0.02mcg Discontinue at 11AM and 40meq per NG-Tube given during the day shift for Potassium Level off 3.1 with next draw due in AM, after Hemodialysis and Blood pressure is been monitor closely , Diminished Lungs sound with ETT 7.5/23.0 to vent therapy and setting are 12, 40% and 475 and due for ABGS in AM. Skin cool with skin areas noted, Generalizer edema, please see skin assessment sheet in chart. Pt is noted with Rectal Tube , Flex Seal , Midlines x2 to both Upper Arms,Right Subclavian Hemodialysis Access with S/P 3Liters out put noted during the day shift Hemodialysis therapy per day shift nurse and Right Nare NG-Tube with feeding Nephro at 30ML/HR. Pt care continue as he will be monitor closely while turn and reposition Q2HRS for comfort during the shift.
[2022-11-16] MEDS: ATORVASTATIN 40 MG TABLET GT SCH (21:06)
--- NOTE | 2022-11-16 23:33 | NUR ---
Pt remain full code with ETT-Vent therapy in place as family just left for home and pt is restless , very afraid to fall asleep , RN at bedside comforting Pt . Pt care continue with feeding infusing as ordered and NG-Tube in place.
[2022-11-17] VITALS (91 sets, daily range): BP systolic 81–172; BP diastolic 28–79
[2022-11-17] MEDS: NOREPINEPHRINE 8 MG in IV NS 0.9% 242 ML IV PRN (01:38)
--- NOTE | 2022-11-17 01:54 | NUR ---
Pt remain full code as he is started back on Levo gtt at 0.02mcg due to blood pressure in the low80s for the last 1hr. Pt care continue as he is been monitor closely.
[2022-11-17] MEDS: IPRATROPIUM NEB FS 0.5 MG/2.5 ML AMPUL.NEB NEB SCH ×5 (01:58→20:13)
[2022-11-17] MEDS: ALBUTEROL FS 2.5 MG/0.5 ML VIAL.NEB NEB SCH ×6 (04:10→23:47)
--- NOTE | 2022-11-17 05:20 | NUR ---
Pt is sleeping after AM and wound care done with Levo gtt and remain Intubated with feeding infusing as ordered. Pt care continue with Levo gtt therapy in progress as blood pressure is been monitor closely.
[2022-11-17 05:22] LABS: BASOPHILS % (AUTO) 0.1 % (0.0-2.0); HEMATOCRIT 27 % (39-51); HEMOGLOBIN 8.5 g/dL (13.5-17.5); LYMPHOCYTES # (AUTO) 0.2 K/uL (0.8-4.8); LYMPHOCYTES % (AUTO) 1.2 % (20.0-44.0); MEAN CORPUSCULAR HGB CONC 31 g/dl (31.0-36.0); MEAN CORPUSCULAR VOLUME 95 fL (80-96); MONOCYTES # (AUTO) 0.2 K/uL (0.1-1.30); MONOCYTES % (AUTO) 1.1 % (2.0-12.0); NEUTROPHILS # (AUTO) 16.5 K/uL (1.8-8.9); NEUTROPHILS % (AUTO) 97.6 % (43.0-81.0); PLATELET COUNT (AUTO) 256 K/uL (150-450); RED BLOOD CELL COUNT(AUTO) 2.86 MIL/uL (4.5-6.0); WHITE BLOOD COUNT (AUTO) 16.9 K/uL (4.3-11.0)
[2022-11-17 05:51] LABS: CALCIUM, SERUM 8.3 mg/dL (8.5-10.1); CARBON DIOXIDE 16 mmol/L (21-32); CHLORIDE 98 mmol/L (98-107); CREATININE 5.1 mg/dL (0.6-1.3); GLUCOSE 297 mg/dL (74-106); MAGNESIUM 2.3 mg/dL (1.8-2.4); PHOSPHORUS 7.1 mg/dL (2.5-4.9); POTASSIUM 3.6 mmol/L (3.5-5.1); SODIUM SERUM 134 mmol/L (136-145)
[2022-11-17 05:59] LABS: UREA NITROGEN, BLOOD 159 mg/dL (7-18)
[2022-11-17] MEDS: methylPREDNISolone SOD SUCC 125 MG/2ML VIAL IV SCH ×3 (06:37→21:07)
[2022-11-17] MEDS: SUCRALFATE 1 G/10 ML UDC NG SCH ×4 (06:37→21:07)
[2022-11-17] MEDS: PANTOPRAZOLE 40 MG/PACK PACK NG SCH ×2 (06:37→15:37)
[2022-11-17] MEDS: PIPERACILLIN /TAZOBACTAM 2.25 G in IV D5W 50 ML IV SCH ×4 (06:37→23:29)
[2022-11-17] MEDS: BLOOD SUGAR DIAGNOSTIC 1 EACH STRIP IN SCH ×4 (06:46→23:29)
[2022-11-17] MEDS: INSULIN REGULAR, HUMAN 100 UNIT/ML 3 ML VIAL SQ PRN ×4 (06:49→23:32)
--- NOTE | 2022-11-17 07:06 | NUR ---
Pt care continue as report is given to the AM receiving nurse.
--- NOTE | 2022-11-17 08:15 | NUR ---
RT NOTE: PATIENT IS ON DIALYSIS AT THIS TIME AND VENT WEANING IS HELD UNTIL PATIENT IS DONE. NOTIFIED NURSE(MOLLY)
[2022-11-17] MEDS: ALBUMIN 25% 25 GM in PREMIX 1 EA IV PRN (08:22)
[2022-11-17] MEDS: METOPROLOL SUCCINATE 50 MG TAB.SR.24H PO SCH (09:00)
[2022-11-17] MEDS: FUROSEMIDE 40 MG TABLET NG SCH (09:05)
[2022-11-17] MEDS: ASPIRIN 81 MG TAB.CHEW NG SCH (09:05)
[2022-11-17] MEDS: CYANOCOBALAMIN 500 MCG TABLET GT SCH (09:05)
[2022-11-17] MEDS: PROSOURCE / PROSTAT (PYXIS) 30 ML UDC NG SCH ×3 (09:05→17:00)
[2022-11-17] MEDS: FERROUS SULFATE UDC 300 MG/5 ML UDC GT SCH ×2 (09:05→17:23)
[2022-11-17] MEDS: LEVOTHYROXINE SODIUM 75 MCG TABLET GT SCH (09:05)
[2022-11-17] MEDS: FOLIC ACID 1 MG TABLET NG SCH ×2 (09:06→17:23)
[2022-11-17] MEDS: ALLOPURINOL 100 MG TABLET GT SCH ×2 (09:06→17:23)
[2022-11-17] MEDS: CIPROFLOXACIN HCL 0.3% 5 ML BOTTLE EACHEYE SCH ×4 (09:25→21:07)
[2022-11-17] MEDS: THERAHONEY GEL 1.5 OZ TUBE TP SCH (09:25)
[2022-11-17] MEDS: Z GUARD REMEDY 4 OZ OINT TP SCH (09:25)
[2022-11-17] MEDS: INSULIN GLARGINE, 100 UNIT/ML CARTRIDGE SQ SCH (09:28)
[2022-11-17] MEDS: NEPRO 1,000 ML BOTTLE GT PRN (10:59)
[2022-11-17] MEDS: VANCOMYCIN 500 MG in IV D5W 100 ML IV PRN (11:00)
[2022-11-17] MEDS: MIDODRINE HCL (5MG) 5 MG TABLET GT PRN (17:07)
--- NOTE | 2022-11-17 18:55 | NUR ---
PATIENT REMAINS IN ROOM. TOLERATING VENT SETTINGS WELL. IV ACCESS' MAINTAINED. FEEDING INFUSING THROUGH NASOGASTRIC TUBE, LINE FLUSHED TO ENSURE INTEGRITY. FLEXISEAL IN PLACE. PATIENT CARE ENDORSED TO NIGHTSHIFT JW MCKEON FOR CONTINUATION OF CARE.
[2022-11-17] MEDS: ATORVASTATIN 40 MG TABLET GT SCH (21:06)
--- NOTE | 2022-11-17 21:22 | NUR ---
RT NOTE DR. PATRICK AT BEDSIDE. VERBAL ORDER TO CHANGE PEEP FROM 0 TO 5. PT TOLERATING WELL AT THIS TIME. WILL CONTINUE TO MONITOR CLOSELY. RN JENNIFER AWARE.
[2022-11-18] VITALS (81 sets, daily range): BP systolic 81–146; BP diastolic 19–73
[2022-11-18] MEDS: NOREPINEPHRINE 8 MG in IV NS 0.9% 242 ML IV PRN (00:44)
[2022-11-18] MEDS: IPRATROPIUM NEB FS 0.5 MG/2.5 ML AMPUL.NEB NEB SCH ×4 (01:43→20:00)
[2022-11-18] MEDS: ALBUTEROL FS 2.5 MG/0.5 ML VIAL.NEB NEB SCH ×6 (03:39→23:31)
--- NOTE | 2022-11-18 03:50 | NUR ---
LOG ROPER. AM CARE GIVEN. REMAINING SAME VENT SETTINGS TOLERATED WELL. SAT 98%. NO ACUTE DISTRESS NOTED. CULINARY MANAGER SHOWING NSR. IV RT AND LT UPPER ARM MID LINE. LEVOPHED 0.1MCG/KG/MIN, FLEXA SEAL INTACT.TURN AND REPOSITION Q2H. HOB ELEVATED. NGT FEEDING TOLERATED WELL. WILL CONTINUE TO MONITOR VITALS.
[2022-11-18 05:13] LABS: HEMATOCRIT 28 % (39-51); HEMOGLOBIN 8.9 g/dL (13.5-17.5); LYMPHOCYTES # (AUTO) 0.4 K/uL (0.8-4.8); LYMPHOCYTES % (AUTO) 1.6 % (20.0-44.0); MEAN CORPUSCULAR HGB CONC 32 g/dl (31.0-36.0); MEAN CORPUSCULAR VOLUME 95 fL (80-96); MONOCYTES # (AUTO) 1.7 K/uL (0.1-1.30); MONOCYTES % (AUTO) 6.7 % (2.0-12.0); NEUTROPHILS # (AUTO) 22.6 K/uL (1.8-8.9); NEUTROPHILS % (AUTO) 91.7 % (43.0-81.0); PLATELET COUNT (AUTO) 377 K/uL (150-450); RED BLOOD CELL COUNT(AUTO) 2.94 MIL/uL (4.5-6.0); WHITE BLOOD COUNT (AUTO) 24.6 K/uL (4.3-11.0)
[2022-11-18 05:34] LABS: CALCIUM, SERUM 8.3 mg/dL (8.5-10.1); CARBON DIOXIDE 21 mmol/L (21-32); CHLORIDE 99 mmol/L (98-107); CREATININE 4.5 mg/dL (0.6-1.3); GLUCOSE 234 mg/dL (74-106); MAGNESIUM 2.1 mg/dL (1.8-2.4); SODIUM SERUM 135 mmol/L (136-145)
[2022-11-18] MEDS: PIPERACILLIN /TAZOBACTAM 2.25 G in IV D5W 50 ML IV SCH ×3 (05:42→18:42)
[2022-11-18] MEDS: methylPREDNISolone SOD SUCC 125 MG/2ML VIAL IV SCH ×3 (05:42→21:00)
[2022-11-18] MEDS: INSULIN REGULAR, HUMAN 100 UNIT/ML 3 ML VIAL SQ PRN ×3 (05:45→18:09)
[2022-11-18 05:53] LABS: POTASSIUM 2.8 mmol/L (3.5-5.1); UREA NITROGEN, BLOOD 129 mg/dL (7-18)
[2022-11-18] MEDS: BLOOD SUGAR DIAGNOSTIC 1 EACH STRIP IN SCH ×3 (06:10→18:05)
--- NOTE | 2022-11-18 06:30 | NUR ---
silviculturist. critical labs notified md hurley waiting for call back
--- NOTE | 2022-11-18 07:13 | NUR ---
icu clerk. x ray called for ngt placement. randell said remove ngt and replace new one. removed current ngt. endorsed day shift rn for new placement
--- NOTE | 2022-11-18 07:14 | NUR ---
RN OPENING NOTES RECEIVED REPORT FROM NIGHTSDCFT RN LINDA. PATIENT TOLERATING VENT SETTINGS WELL. ON LOW DOSE LEVOPHED AT 0.02. NIGHTSHIFT EXPRESSED CONCERNS OF POSSIBLE NASOGASTRIC TUBE MIGRATION. OLD NGT DISCONTINUED BY NIGHTSHIFT, WILL REPLACE AND AWAIT STAT CHEST X-RAY. PATIENT ANURIC. FLEXISEAL IN PLACE, DRAINING OUTPUT. IV ACCESS ON RIGHT AND LEFT UPPER ARM MIDLINES. HEMODIALYSIS ACCESS ON RIGHT SUBCLAVIAN. SAFETY MEASURES IMPLEMENTED, WILL CONTINUE PLAN OF CARE AND ANTICIPATE NEEDS.
--- NOTE | 2022-11-18 08:09 | NUR ---
NEW NASOGASTRIC TUBE INSERTED IN LEFT NARE AT 55 CM GAVI. WILL AWAIT CHEST X-RAY TO CONFIRM PLACEMENT Addendum: 11/18/22 at 1324 by MOLLY GAO RN TUBE ADVANCED 10 CM PER RADIOLOGY REPORT. TUBE IN PLACE WILL BEGIN FEEDING.
[2022-11-18] MEDS: ALBUMIN 25% 25 GM in PREMIX 1 EA IV PRN (08:25)
[2022-11-18] MEDS: METOPROLOL SUCCINATE 50 MG TAB.SR.24H PO SCH (09:00)
[2022-11-18] MEDS: FUROSEMIDE 40 MG TABLET NG SCH (09:00)
[2022-11-18] MEDS ORDERED: POTASSIUM CHLORIDE 10 MEQ/50 ML PREMIXED IVPB FOR PERIPHERAL LINE IV ONE ×2 (09:30)
--- NOTE | 2022-11-18 09:30 | NUR ---
NON ADMIN. NEW TIME FOR SECOND POTASSIUM BAG AT 1200
[2022-11-18] MEDS: CIPROFLOXACIN HCL 0.3% 5 ML BOTTLE EACHEYE SCH ×4 (09:35→21:00)
[2022-11-18] MEDS: THERAHONEY GEL 1.5 OZ TUBE TP SCH (09:36)
[2022-11-18] MEDS: Z GUARD REMEDY 4 OZ OINT TP SCH (09:36)
[2022-11-18] MEDS: INSULIN GLARGINE, 100 UNIT/ML CARTRIDGE SQ SCH (09:46)
[2022-11-18] MEDS: SUCRALFATE 1 G/10 ML UDC NG SCH ×4 (10:31→23:08)
[2022-11-18] MEDS: ALLOPURINOL 100 MG TABLET GT SCH ×2 (10:31→16:49)
[2022-11-18] MEDS: PANTOPRAZOLE 40 MG/PACK PACK NG SCH ×2 (10:31→16:49)
[2022-11-18] MEDS: FOLIC ACID 1 MG TABLET NG SCH ×2 (10:31→16:50)
[2022-11-18] MEDS: CYANOCOBALAMIN 500 MCG TABLET GT SCH (10:31)
[2022-11-18] MEDS: FERROUS SULFATE UDC 300 MG/5 ML UDC GT SCH ×2 (10:31→16:49)
[2022-11-18] MEDS: LEVOTHYROXINE SODIUM 75 MCG TABLET GT SCH (10:31)
[2022-11-18] MEDS: ASPIRIN 81 MG TAB.CHEW NG SCH (10:31)
[2022-11-18] MEDS: PROSOURCE / PROSTAT (PYXIS) 30 ML UDC NG SCH ×3 (10:33→16:50)
[2022-11-18] MEDS: NEPRO 1,000 ML BOTTLE GT PRN (10:34)
--- NOTE | 2022-11-18 11:00 | NUR ---
NON ADMIN FOR VANCOMYCIN PRN DIALYSIS. VANCO TROUGH 21.
[2022-11-18] MEDS ORDERED: POTASSIUM CL. PREMIX PERIPHER. 50 ML IV SCH (12:00)
[2022-11-18] MEDS: EPOETIN ALFA-EPBX 4,000 UNIT/ML VIAL IV SCH (14:49)
[2022-11-18] MEDS ORDERED: FLUCONAZOLE IN NS 100 MG in PREMIX 1 EA IV SCH ×2 (15:00)
--- NOTE | 2022-11-18 16:00 | NUR ---
SUCTIONED RED SECRETIONS FROM PATIENT OROPHARYNX. PER FAMILY, PATIENT IS PRONE TO NOSEBLEEDS. ICE PACK ADDED TO BRIDGE OF NOSE. FAMILY AT BEDSIDE HOLDING PACK FOR PATIENT. WILL CONTINUE TO ASSESS BLEEDING.
[2022-11-18] MEDS: FLUCONAZOLE IN NS 200 MG in PREMIX 1 EA IV SCH ×2 (16:49)
--- NOTE | 2022-11-18 18:49 | NUR ---
PATIENT REMAINS INTUBATED. ALL IV ACCESS' MAINTAINED. NASOGASTRIC TUBE SECURED TO LEFT NARE AT 65 CM GAVI. FEEDING RUNNING ORDERED. NEEDS ADDRESSED. FAMILY AT BEDSIDE. WILL ENDORSE TO PADMA MCKEON FOR CONTINUATION OF CARE. Addendum: 11/18/22 at 1919 by MOLLY GAO RN ASSIGNMENT CHANGED. PATIENT WILL INSTEAD GO TO CANDY SEPARATOR ENROBING.
--- NOTE | 2022-11-18 19:00 | NUR ---
INFORMED PATIENTS SON OF VISITATION HOURS. BETWEEN HOURS 1900 AND 1999 FAMILY IS TO EXIT THE UNIT FOR CHANGE OF SHIFT REPORTS. PATIENTS SON RESPONDED "YOU CAN TELL THEM YOU INFORMED ME OF THE VISITING HOURS." CHARGE NURSE INFORMED.
[2022-11-18] MEDS: ATORVASTATIN 40 MG TABLET GT SCH (23:08)
[2022-11-19] VITALS (66 sets, daily range): BP systolic 64–149; BP diastolic 23–77
[2022-11-19] MEDS: BLOOD SUGAR DIAGNOSTIC 1 EACH STRIP IN SCH ×5 (00:22→23:08)
[2022-11-19] MEDS: PIPERACILLIN /TAZOBACTAM 2.25 G in IV D5W 50 ML IV SCH ×5 (00:27→23:22)
[2022-11-19] MEDS: INSULIN REGULAR, HUMAN 100 UNIT/ML 3 ML VIAL SQ PRN ×5 (00:29→23:11)
[2022-11-19] MEDS: IPRATROPIUM NEB FS 0.5 MG/2.5 ML AMPUL.NEB NEB SCH ×4 (01:31→20:07)
[2022-11-19] MEDS: ALBUTEROL FS 2.5 MG/0.5 ML VIAL.NEB NEB SCH ×6 (03:45→23:47)
[2022-11-19] MEDS: methylPREDNISolone SOD SUCC 125 MG/2ML VIAL IV SCH ×3 (05:22→21:04)
[2022-11-19 05:32] LABS: CALCIUM, SERUM 8.4 mg/dL (8.5-10.1); CARBON DIOXIDE 25 mmol/L (21-32); CHLORIDE 100 mmol/L (98-107); CREATININE 3.9 mg/dL (0.6-1.3); GLUCOSE 248 mg/dL (74-106); PHOSPHORUS 5.5 mg/dL (2.5-4.9); POTASSIUM 3.4 mmol/L (3.5-5.1); SODIUM SERUM 137 mmol/L (136-145)
[2022-11-19 05:36] LABS: UREA NITROGEN, BLOOD 111 mg/dL (7-18)
[2022-11-19 05:38] LABS: HEMATOCRIT 22 % (39-51); LYMPHOCYTES # (AUTO) 0.2 K/uL (0.8-4.8); LYMPHOCYTES % (AUTO) 1.5 % (20.0-44.0); MEAN CORPUSCULAR HGB CONC 32 g/dl (31.0-36.0); MEAN CORPUSCULAR VOLUME 95 fL (80-96); MONOCYTES # (AUTO) 0.2 K/uL (0.1-1.30); MONOCYTES % (AUTO) 1.7 % (2.0-12.0); NEUTROPHILS # (AUTO) 13.1 K/uL (1.8-8.9); NEUTROPHILS % (AUTO) 96.8 % (43.0-81.0); PLATELET COUNT (AUTO) 220 K/uL (150-450); RED BLOOD CELL COUNT(AUTO) 2.29 MIL/uL (4.5-6.0); WHITE BLOOD COUNT (AUTO) 13.5 K/uL (4.3-11.0)
--- NOTE | 2022-11-19 07:05 | NUR ---
RN NOTES RECEIVED PT ON BED INTUBATED , ALERT/ FOLLOWS COMMAND, ON TELE SR HR IN 70'S , RECTAL TUBE DRAINING WITH GREENISH LOOSE STOOL, NGT AT 30CC/HR RUNNING , IV SITE CDI, SR UP x3,CALL LIGHT WITHIN EASY REACH, BED LOCKED AND IN LOWEST POSITION, CONTINUE TO MONITOR
[2022-11-19] MEDS: FUROSEMIDE 40 MG TABLET NG SCH (08:21)
[2022-11-19] MEDS: PANTOPRAZOLE 40 MG/PACK PACK NG SCH ×2 (08:21→16:29)
[2022-11-19] MEDS: ASPIRIN 81 MG TAB.CHEW NG SCH (08:21)
[2022-11-19] MEDS: ALLOPURINOL 100 MG TABLET GT SCH ×2 (08:21→16:30)
[2022-11-19] MEDS: SUCRALFATE 1 G/10 ML UDC NG SCH ×4 (08:21→21:04)
[2022-11-19] MEDS: CYANOCOBALAMIN 500 MCG TABLET GT SCH (08:21)
[2022-11-19] MEDS: FOLIC ACID 1 MG TABLET NG SCH ×2 (08:22→16:30)
[2022-11-19] MEDS: LEVOTHYROXINE SODIUM 75 MCG TABLET GT SCH (08:22)
[2022-11-19] MEDS: METOPROLOL SUCCINATE 50 MG TAB.SR.24H PO SCH (08:22)
[2022-11-19] MEDS: FERROUS SULFATE UDC 300 MG/5 ML UDC GT SCH ×2 (08:24→16:29)
[2022-11-19] MEDS: CIPROFLOXACIN HCL 0.3% 5 ML BOTTLE EACHEYE SCH ×4 (08:25→21:50)
[2022-11-19] MEDS: PROSOURCE / PROSTAT (PYXIS) 30 ML UDC NG SCH ×3 (08:27→16:32)
[2022-11-19] MEDS: INSULIN GLARGINE, 100 UNIT/ML CARTRIDGE SQ SCH (08:29)
[2022-11-19] MEDS: Z GUARD REMEDY 4 OZ OINT TP SCH (08:30)
[2022-11-19] MEDS: THERAHONEY GEL 1.5 OZ TUBE TP SCH (08:30)
--- NOTE | 2022-11-19 10:17 | NUR ---
RT PER DR PAUL PATIENT WAS PLACED ON CPAP WEANING MODE. RN NOTIFIED. Addendum: 11/19/22 at 1018 by THOMAS FLOWERS RT Amended: Links added.
--- NOTE | 2022-11-19 14:17 | NUR ---
RN NOTES PT REFUSED TO TURNING AND AM AND PM CARE
[2022-11-19] MEDS ORDERED: EPOETIN ALFA-EPBX 10,000 UNIT/ML VIAL IV ONE (15:00)
[2022-11-19] MEDS: NEPRO 1,000 ML BOTTLE GT PRN (15:33)
--- NOTE | 2022-11-19 16:00 | NUR ---
RN NOTES ORAL CARE DONE, PT REFUSED TO TURN AND REPOSITIONING , SUPPORTIVE FAMILY AT THE BEDSIDE .
[2022-11-19] MEDS: VANCOMYCIN 500 MG in IV D5W 100 ML IV PRN (16:25)
[2022-11-19] MEDS: FLUCONAZOLE IN NS 200 MG in PREMIX 1 EA IV SCH ×2 (17:44)
--- NOTE | 2022-11-19 18:18 | NUR ---
RN NOTES PATIENT REMAINS INTUBATED. LETHARGIC, FOLLOWS COMMAND, O2 SAT WNL, ALL IV ACCESS' MAINTAINED. NASOGASTRIC TUBE SECURED TO LEFT NARE AT 65 CM GAVI. FEEDING RUNNING ORDERED. NEEDS ADDRESSED. FAMILY AT BEDSIDE. WILL ENDORSE TO NIGHTSHIFT NURSE FOR CONTINUATION OF CARE.
--- NOTE | 2022-11-19 18:26 | NUR ---
RN NOTES PT REFUSED TURNING AND REPOSITIONING ON THIS SHIFT,FAMILY AT THE BEDSIDE
--- NOTE | 2022-11-19 20:09 | NUR ---
GLOBAL IMPLEMENTATION MANAGER OPENING NOTE PT RECEIVED IN BED, AWAKE, ALERT, NON-VERBAL, BUT ABLE TO MAKE NEEDS KNOWN BY WRITING. PT WITH ETT SIZE 7.5, MARKED 23 CM AT THE LIP WITH CPAP MODE, FIO2 35%, PEEP 5, AND PRESSURE SUPPORT OF 15 WITH CURRENT O2SAT OF 100%; NO S/S OF RESP DISTRESS, NO SOB, NON-LABORED AND EQUAL BREATHING. PT ATTACHED TO BEDSIDE MONITOR, SR WITH HR OF 75, NGT IN LEFT NARE AT 65 CM WITH NEPRO AT 30 ML/HR; NO RESIDUALS NOTED. FLEXISEAL IN PLACE WITH NO OUTPUT YET. FATEMEH AND NASEEM MIDLINE INTACT AND PATENT WITH NS TKO INFUSING; RIGHT SUBCLAVIAN HD CATH DRESSING C/D/I. BED IN LOWEST POSITION, CALL LIGHT WITHIN REACH, SIDE RAILS UP X3. WILL CONTINUE TO MONITOR THROUGHOUT THE NIGHT.
--- NOTE | 2022-11-19 20:12 | NUR ---
RN NOTE PT REFUSED TO HAVE AXILLARY TEMP TAKEN. TEMP TAKEN VIA TEMPORAL ARTERY SCAN AND IS CURRENTLY 96.6.
[2022-11-19] MEDS: ATORVASTATIN 40 MG TABLET GT SCH (21:04)
[2022-11-20] VITALS (25 sets, daily range): BP systolic 97–148; BP diastolic 29–72
[2022-11-20] MEDS: IPRATROPIUM NEB FS 0.5 MG/2.5 ML AMPUL.NEB NEB SCH ×4 (01:42→19:42)
--- NOTE | 2022-11-20 02:53 | NUR ---
RN NOTE PT REFUSED BED BATH AND TO HAVE LINENS CHANGED. PT EDUCATED ON IMPORTANCE OF CLEANSING WOUND AND CHANGING DRESSING. PT CONTINUED TO REFUSE.
[2022-11-20] MEDS: ALBUTEROL FS 2.5 MG/0.5 ML VIAL.NEB NEB SCH ×5 (03:25→19:42)
[2022-11-20] MEDS: methylPREDNISolone SOD SUCC 125 MG/2ML VIAL IV SCH ×3 (05:08→21:48)
[2022-11-20] MEDS: PIPERACILLIN /TAZOBACTAM 2.25 G in IV D5W 50 ML IV SCH ×4 (05:08→23:39)
[2022-11-20] MEDS: BLOOD SUGAR DIAGNOSTIC 1 EACH STRIP IN SCH ×4 (05:23→23:56)
[2022-11-20] MEDS: INSULIN REGULAR, HUMAN 100 UNIT/ML 3 ML VIAL SQ PRN ×4 (05:24→23:57)
--- NOTE | 2022-11-20 05:24 | NUR ---
RN NOTE PT ASKED AGAIN IF WE CAN GIVE HIM BED BATH AND CHANGE DRESSING ON HIS WOUND. PT CONTINUED TO REFUSE.
[2022-11-20 05:58] LABS: HEMATOCRIT 22 % (39-51); LYMPHOCYTES # (AUTO) 0.3 K/uL (0.8-4.8); LYMPHOCYTES % (AUTO) 1.9 % (20.0-44.0); MEAN CORPUSCULAR HGB CONC 32 g/dl (31.0-36.0); MEAN CORPUSCULAR VOLUME 95 fL (80-96); MONOCYTES # (AUTO) 0.4 K/uL (0.1-1.30); MONOCYTES % (AUTO) 2.8 % (2.0-12.0); NEUTROPHILS # (AUTO) 12.9 K/uL (1.8-8.9); NEUTROPHILS % (AUTO) 95.3 % (43.0-81.0); PLATELET COUNT (AUTO) 224 K/uL (150-450); RED BLOOD CELL COUNT(AUTO) 2.31 MIL/uL (4.5-6.0); WHITE BLOOD COUNT (AUTO) 13.6 K/uL (4.3-11.0)
--- NOTE | 2022-11-20 06:26 | NUR ---
PROSTHETIST CLOSING NOTE PT REMAINS IN BED, AWAKE, SLEPT WELL THROUGHOUT THE NIGHT. CONTINUES TO BE ON SAME VENT SETTINGS, TOLERATING WELL WITH O2SAT RANGING FROM 97%-100% WITH NO S/S OF RESP DISTRESS, NON-LABORED AND EQUAL BREATHING; PT NOTED TO HAVE PRODUCTIVE COUGH; SUCTIONED APPROPRIATELY. ATTACHED TO BEDSIDE MONITOR, SR WITH HR RANGING FROM 69-98. FLEXISEAL INTACT AND PATENT, DRAINING DARK GREEN AND LIQUID STOOL. LEFT NARE NGT WITH NEPRO AT 30 ML/HR; TOLERATED WELL WITH NO RESIDUALS. NASEEM MIDLINE INTACT AND PATENT, FLUSHES EASILY WITH NO RESISTANCE; NS TKO INFUSING. PT CONTINUOUSLY REFUSED TO BE TURNED AND TO BE CLEANED. ALL DUE MEDS ADMINISTERED DURING THE NIGHT. BED IN LOWEST POSITION, CALL LIGHT WITHIN REACH, SIDE RAILS UP X3. WILL ENDORSE TO DAYSHIFT NURSE TO CONTINUE CARE.
[2022-11-20 06:41] LABS: CALCIUM, SERUM 8.3 mg/dL (8.5-10.1); CARBON DIOXIDE 22 mmol/L (21-32); CHLORIDE 99 mmol/L (98-107); CREATININE 3.9 mg/dL (0.6-1.3); GLUCOSE 309 mg/dL (74-106); POTASSIUM 3.3 mmol/L (3.5-5.1); SODIUM SERUM 136 mmol/L (136-145)
[2022-11-20 06:56] LABS: UREA NITROGEN, BLOOD 119 mg/dL (7-18)
--- NOTE | 2022-11-20 07:30 | NUR ---
PHOTOGRAPHIC EDITOR NOTE GCS [id number], bilateral pupils 3mm PEARLLA. On ventilator support, ETT 7.5 marking at 23cm, CPAP mode with FiO2 35%, SPO2 100%. talent development consultant showed SR HR 70/min. MAP>65mmHg. Flexiseal is in-situ, collecting greenish stool. Nepro running at 30mL/hr via NGT, placement confirmed by auscultation. Will continue monitoring and care.
[2022-11-20] MEDS: SUCRALFATE 1 G/10 ML UDC NG SCH ×4 (07:44→21:48)
[2022-11-20] MEDS: PANTOPRAZOLE 40 MG/PACK PACK NG SCH ×2 (07:44→16:38)
[2022-11-20] MEDS ORDERED: DC PROPOFOL WHEN EXTUBATED XX PRN (08:00)
[2022-11-20] MEDS: CYANOCOBALAMIN 500 MCG TABLET GT SCH (08:46)
[2022-11-20] MEDS: FERROUS SULFATE UDC 300 MG/5 ML UDC GT SCH ×2 (08:46→18:52)
[2022-11-20] MEDS: FOLIC ACID 1 MG TABLET NG SCH ×2 (08:46→18:53)
[2022-11-20] MEDS: ASPIRIN 81 MG TAB.CHEW NG SCH (08:46)
[2022-11-20] MEDS: LEVOTHYROXINE SODIUM 75 MCG TABLET GT SCH (08:46)
[2022-11-20] MEDS: ALLOPURINOL 100 MG TABLET GT SCH ×2 (08:46→18:53)
[2022-11-20] MEDS: PROSOURCE / PROSTAT (PYXIS) 30 ML UDC NG SCH ×3 (08:50→18:53)
[2022-11-20 08:53] LABS: ABG BASE EXCESS -7.3 mmol/L; ABG OXYGEN SATURATION 89.8 % (92.0-98.5); ABG PCO2 45.8 mmHg (35.0-45.0); ABG PO2 65.3 mmHg (75.0-100.0); AaDO2 203.5 mmHg; COHb 0.4 % (0.5-1.5); MetHb 0.4 % (0.0-1.5); O2Hb 89.1 % (94.0-97.0); SITE, ABG Left Radial
[2022-11-20] MEDS: INSULIN GLARGINE, 100 UNIT/ML CARTRIDGE SQ SCH (08:53)
[2022-11-20] MEDS: Z GUARD REMEDY 4 OZ OINT TP SCH (08:54)
[2022-11-20] MEDS: THERAHONEY GEL 1.5 OZ TUBE TP SCH (08:54)
[2022-11-20] MEDS: FUROSEMIDE 40 MG TABLET NG SCH (09:00)
[2022-11-20] MEDS: METOPROLOL SUCCINATE 50 MG TAB.SR.24H PO SCH (09:00)
[2022-11-20 09:07] LABS: ABG BASE EXCESS -5.4 mmol/L; ABG OXYGEN SATURATION 94.8 % (92.0-98.5); ABG PCO2 41.2 mmHg (35.0-45.0); ABG PH 7.313 (7.350-7.450); ABG PO2 84.4 mmHg (75.0-100.0); AaDO2 117.3 mmHg; COHb 0.5 % (0.5-1.5); MetHb 0.1 % (0.0-1.5); O2Hb 94.2 % (94.0-97.0); SITE, ABG Left Radial
[2022-11-20 09:15] LABS: ABG BASE EXCESS -6.4 mmol/L; ABG OXYGEN SATURATION 93.8 % (92.0-98.5); ABG PCO2 48.4 mmHg (35.0-45.0); ABG PH 7.248 (7.350-7.450); ABG PO2 81.4 mmHg (75.0-100.0); AaDO2 111.9 mmHg; COHb 0.2 % (0.5-1.5); MetHb 0.4 % (0.0-1.5); O2Hb 93.2 % (94.0-97.0); SITE, ABG Left Radial; VENT MODE, BG CPAP 5 PS 15 35%
[2022-11-20] MEDS: CIPROFLOXACIN HCL 0.3% 5 ML BOTTLE EACHEYE SCH ×4 (09:23→22:07)
--- NOTE | 2022-11-20 10:10 | NUR ---
BOX COVERING MACHINE OPERATOR NOte Patient was extubated at 10:08 and switched to BIPAP support. Patient is alert and conscious with good synchrony noted on BIPAP use. SpO2 100% with FiO2 0.4. Clarified with patient and family for the code status, they opted for DNI&DNR, changed as ordered.
[2022-11-20 15:26] LABS: BILIRUBIN,DIRECT 0.2 mg/dL (0.0-0.2); BILIRUBIN,TOTAL 0.4 mg/dL (0.2-1.0)
--- NOTE | 2022-11-20 16:00 | NUR ---
county agricultural agent noTE Patient tolerated BiPAP use really well with SpO2 >95% with FiO2 0.35 all along, RR ~20/min, not in respiratory distress. Tolerated turning and repositioning well as well. Oral care was provided and sputum was suctioned.
[2022-11-20] MEDS: NEPRO 1,000 ML BOTTLE GT PRN (16:35)
[2022-11-20] MEDS: FLUCONAZOLE IN NS 200 MG in PREMIX 1 EA IV SCH ×2 (16:38)
--- NOTE | 2022-11-20 18:15 | NUR ---
CLINICAL TRIAL DATA MANAGER NOte ABG was taken at 1800. PCO2 is normal with pH 7.29 due to metabolic acidosis. Showed the result to Dr. Serrano. Per Dr. Serrano, for a low dose of zolpidem PRN, order is placed.
[2022-11-20] MEDS: EPOETIN ALFA-EPBX 4,000 UNIT/ML VIAL IV SCH (18:48)
--- NOTE | 2022-11-20 19:45 | NUR ---
RCVD PT ON BIPAP 15/5, RATE 18, FIO2 35%. PT IS ALERT, AWAKE AND NON VERBAL . BREATHING TX GIVEN , NO ADVERSE REACTION NOTED. NO RESPIRATORY DISTRESS NOTED AT THIS TIME. WILL CONTINUE TO MONITOR T/O SHIFT.
--- NOTE | 2022-11-20 21:37 | NUR ---
RN NOTE VERIFIED WITH DR. PAUL, PT RECEIVED WITH CURRENT BIPAP SETTING OF 15/5. BEFORE INTUBATION, PREVIOUS BIPAP SETTING WAS 18/5. PER DR. PAUL, IF PT APPEARS COMFORTABLE AND SATURATING WELL, OK TO KEEP 15/5. BIPAP CHANGES ORDERED.
--- NOTE | 2022-11-20 21:38 | NUR ---
FOAMITE MIXER OPENING NOTE PT RECEIVED IN BED, AWAKE WITH FAMILY AT BEDSIDE. PT ON BIPAP WITH SETTING OF 15/5, RATE 18, FIO2 35% WITH CURRENT O2SAT OF 100%; NO S/S OF RESP DISTRESS, NO SOB, NON-LABORED AND EQUAL BREATHING; APPEARS COMFORTABLE OVERALL. FLEXISEAL INTACT, DRAINING DARK AND LOOSE STOOL. LEFT NARE NGT AT 65 CM WITH NEPRO AT 30 ML/HR; NO RESIDUALS NOTED. NASEEM MIDLINE INTACT AND PATENT, FLUSHES EASILY WITH NO RESISTANCE; NS TKO INFUSING; RIGHT SUBCLAVIAN HD CATH DRESSING C/D/I. BED IN LOWEST POSITION, CALL LIGHT WITHIN REACH, SIDE RAILS UP X3. WILL CONTINUE TO MONITOR THROUGHOUT THE NIGHT.
[2022-11-20] MEDS: ZOLPIDEM TARTRATE 5 MG TABLET NG PRN (21:48)
[2022-11-20] MEDS: ATORVASTATIN 40 MG TABLET GT SCH (21:48)
--- NOTE | 2022-11-20 21:49 | NUR ---
RN NOTE PT REQUESTS FOR "SLEEPING PILL". PT ADMINISTERED ZOLPIDEM 5 MG. BP 136/39, HR 74. WILL MONITOR FOR EFFECTIVENESS.
--- NOTE | 2022-11-20 22:49 | NUR ---
RN NOTE ZOLPIDEM REASSESSMENT. PT ASLEEP IN BED WITH VSS BP 133/43, HR 71, 100% O2SAT, RR 17.
[2022-11-21] VITALS (26 sets, daily range): BP systolic 102–129; BP diastolic 23–58
[2022-11-21] MEDS: IPRATROPIUM NEB FS 0.5 MG/2.5 ML AMPUL.NEB NEB SCH ×4 (01:14→19:36)
[2022-11-21] MEDS: ALBUTEROL FS 2.5 MG/0.5 ML VIAL.NEB NEB SCH ×4 (01:14→19:35)
[2022-11-21] MEDS: methylPREDNISolone SOD SUCC 125 MG/2ML VIAL IV SCH ×3 (05:05→21:22)
[2022-11-21] MEDS: PIPERACILLIN /TAZOBACTAM 2.25 G in IV D5W 50 ML IV SCH ×4 (05:05→23:09)
[2022-11-21 05:22] LABS: HEMATOCRIT 23 % (39-51); HEMOGLOBIN 7.2 g/dL (13.5-17.5); LYMPHOCYTES # (AUTO) 0.2 K/uL (0.8-4.8); MEAN CORPUSCULAR HGB CONC 32 g/dl (31.0-36.0); MEAN CORPUSCULAR VOLUME 96 fL (80-96); MONOCYTES # (AUTO) 0.3 K/uL (0.1-1.30); NEUTROPHILS # (AUTO) 14.1 K/uL (1.8-8.9); PLATELET COUNT (AUTO) 227 K/uL (150-450); RED BLOOD CELL COUNT(AUTO) 2.38 MIL/uL (4.5-6.0); WHITE BLOOD COUNT (AUTO) 14.5 K/uL (4.3-11.0)
[2022-11-21] MEDS: BLOOD SUGAR DIAGNOSTIC 1 EACH STRIP IN SCH ×4 (05:23→23:38)
[2022-11-21 05:29] LABS: PREALBUMIN 20.3 MG/DL (18.0-35.7)
[2022-11-21] MEDS: INSULIN REGULAR, HUMAN 100 UNIT/ML 3 ML VIAL SQ PRN ×4 (05:29→23:42)
[2022-11-21 05:30] LABS: ALANINE AMINOTRANSFERASE 15 U/L (12-78); ALKALINE PHOSPHATASE 142 U/L (46-116); ASPARTATE AMINOTRANSFERASE 11 U/L (15-37); BILIRUBIN,DIRECT 0.2 mg/dL (0.0-0.2); BILIRUBIN,TOTAL 0.3 mg/dL (0.2-1.0); CALCIUM, SERUM 8.9 mg/dL (8.5-10.1); CARBON DIOXIDE 21 mmol/L (21-32); CHLORIDE 101 mmol/L (98-107); PHOSPHORUS 5.5 mg/dL (2.5-4.9); POTASSIUM 3.1 mmol/L (3.5-5.1); SODIUM SERUM 137 mmol/L (136-145); TOTAL PROTEIN, SERUM 4.3 g/dL (6.4-8.2)
[2022-11-21 05:32] LABS: UREA NITROGEN, BLOOD 124 mg/dL (7-18)
[2022-11-21 05:52] LABS: GLUCOSE 355 mg/dL (74-106)
--- NOTE | 2022-11-21 05:57 | NUR ---
RN NOTE RECEIVED CRITICAL FROM LAB; GLUCOSE OF 355, EXPECTED WITH GTF AND RECEIVING SOLU-MEDROL. BG NOTED TO BE PREVIOUSLY HIGH 373 MG/DL.
--- NOTE | 2022-11-21 06:46 | NUR ---
WELDING PANTOGRAPH OPERATOR CLOSING NOTE PT REMAINS IN BED, ASLEEP; SLEPT WELL THROUGHOUT THE NIGHT; NO CHANGES TO NEURO STATUS. CONTINUES TO BE ON SAME BIPAP SETTINGS WITH O2SAT RANGING FROM 99%-100% WITH NO SIGNS OF RESPIRATORY DISTRESS; NO SOB, NON-LABORED AND EQUAL BREATHING; APPEARS COMFORTABLE OVERALL. FLEXISEAL INTACT AND PATENT, DRAINING LIQUID AND DARK STOOL. NGT REMAINS IN PLACE WITH NEPRO AT 30 ML/HR; TOLERATED FEEDING WELL. ALL DUE MEDS ADMINISTERED DURING THE NIGHT. BED IN LOWEST POSITION, CALL LIGHT WITHIN REACH, SIDE RAILS UP X3. WILL ENDORSE TO DAYSHIFT NURSE TO CONTINUE CARE.
--- NOTE | 2022-11-21 07:35 | NUR ---
BARGAIN TABLE CLERK Note Patient was asleep in bed, [id number]. surveillance system monitor showed SR HR 70/min. MAP>65mmHg without vasopressors. On BiPAP with IPAP 15 and EPAP 5cmH2O, SPo2 100% all along without respiratory distress noted. On NGT feeding at 30mL/hr. Call munguia is placed within reach, bed is locked and placed in the lowest position. Will continue monitoring and care.
[2022-11-21] MEDS: SUCRALFATE 1 G/10 ML UDC NG SCH ×4 (07:56→21:22)
[2022-11-21] MEDS: PANTOPRAZOLE 40 MG/PACK PACK NG SCH ×2 (07:57→17:14)
[2022-11-21] MEDS: METOPROLOL SUCCINATE 50 MG TAB.SR.24H PO SCH (09:00)
[2022-11-21] MEDS: FOLIC ACID 1 MG TABLET NG SCH ×2 (09:06→17:14)
[2022-11-21] MEDS: LEVOTHYROXINE SODIUM 75 MCG TABLET GT SCH (09:06)
[2022-11-21] MEDS: FERROUS SULFATE UDC 300 MG/5 ML UDC GT SCH ×2 (09:06→17:14)
[2022-11-21] MEDS: ALLOPURINOL 100 MG TABLET GT SCH ×2 (09:06→17:14)
[2022-11-21] MEDS: CIPROFLOXACIN HCL 0.3% 5 ML BOTTLE EACHEYE SCH ×4 (09:06→22:17)
[2022-11-21] MEDS: ASPIRIN 81 MG TAB.CHEW NG SCH (09:06)
[2022-11-21] MEDS: FUROSEMIDE 40 MG TABLET NG SCH (09:06)
[2022-11-21] MEDS: PROSOURCE / PROSTAT (PYXIS) 30 ML UDC NG SCH ×3 (09:09→17:15)
[2022-11-21] MEDS: INSULIN GLARGINE, 100 UNIT/ML CARTRIDGE SQ SCH ×2 (09:11→21:45)
[2022-11-21] MEDS: THERAHONEY GEL 1.5 OZ TUBE TP SCH (09:12)
[2022-11-21] MEDS: Z GUARD REMEDY 4 OZ OINT TP SCH (09:12)
[2022-11-21] MEDS: CYANOCOBALAMIN 500 MCG TABLET GT SCH (09:28)
[2022-11-21] MEDS: MIDODRINE HCL (5MG) 5 MG TABLET GT PRN (11:55)
[2022-11-21 12:49] LABS: ABG BASE EXCESS -6.6 mmol/L; ABG OXYGEN SATURATION 97.2 % (92.0-98.5); ABG PCO2 40.6 mmHg (35.0-45.0); ABG PH 7.297 (7.350-7.450); ABG PO2 106.5 mmHg (75.0-100.0); AaDO2 95.9 mmHg; COHb 0.1 % (0.5-1.5); MetHb 0.1 % (0.0-1.5); SITE, ABG Left Radial; VENT MODE, BG BIPAP 15/5 18 35%
[2022-11-21 12:52] LABS: ABG OXYGEN SATURATION 97.1 % (92.0-98.5); ABG PCO2 48.1 mmHg (35.0-45.0); ABG PH 7.204 (7.350-7.450); ABG PO2 111.8 mmHg (75.0-100.0); AaDO2 31.1 mmHg; COHb 0.4 % (0.5-1.5); MetHb 0.1 % (0.0-1.5); O2Hb 96.6 % (94.0-97.0); SITE, ABG Right Radial; VENT MODE, BG NASAL CANNULA
[2022-11-21 12:53] LABS: ABG BASE EXCESS -7.1 mmol/L; ABG OXYGEN SATURATION 95.6 % (92.0-98.5); ABG PCO2 45.6 mmHg (35.0-45.0); ABG PH 7.253 (7.350-7.450); ABG PO2 90.9 mmHg (75.0-100.0); AaDO2 105.6 mmHg; COHb 0.5 % (0.5-1.5); MetHb 0.3 % (0.0-1.5); O2Hb 94.8 % (94.0-97.0); SITE, ABG Left Radial
[2022-11-21] MEDS: ALBUMIN 25% 25 GM in PREMIX 1 EA IV PRN (13:50)
[2022-11-21] MEDS: NEPRO 1,000 ML BOTTLE GT PRN (15:17)
[2022-11-21] MEDS: VANCOMYCIN 500 MG in IV D5W 100 ML IV PRN (15:31)
[2022-11-21] MEDS: FLUCONAZOLE IN NS 200 MG in PREMIX 1 EA IV SCH ×2 (15:31)
--- NOTE | 2022-11-21 16:00 | NUR ---
off bipap onto 1 lpm n/c
--- NOTE | 2022-11-21 19:00 | NUR ---
STOCK PARTS FABRICATOR NOte Patient desaturated to 86% with 1L oxygen(increased to 2L), noted HR also increased to 100/min. Informed RT and put patient back on BIPAP with the previous setting. Keep observation.
--- NOTE | 2022-11-21 20:56 | NUR ---
TRANSMISSION AND COORDINATION ENGINEER OPENING NOTE PT RECEIVED IN BED, AWAKE WITH FAMILY AT BEDSIDE, ALERT, ABLE TO WRITE NEEDS. PT ON BIPAP WITH SETTING OF 15/5, RATE 18, 35% FIO2 WITH CURRENT O2SAT OF 100%; NO SIGNS OF RESP DISTRESS; PT SUCTIONED ORALLY; WILL CONTINUE TO PROVIDE ORAL CARE NEEDED. LEFT NARE AT 65 CM WITH NEPRO AT 30 ML/HR; NO RESIDUALS NOTED. FATEMEH AND NASEEM MIDLINE IN PLACE WITH NS TKO INFUSING. BED IN LOWEST POSITION, CALL LIGHT WITHIN REACH, SIDE RAILS UP X3. WILL CONTINUE TO MONITOR THROUGHOUT THE NIGHT.
[2022-11-21] MEDS: ATORVASTATIN 40 MG TABLET GT SCH (21:22)
[2022-11-21] MEDS: ZOLPIDEM TARTRATE 5 MG TABLET NG PRN (23:24)
--- NOTE | 2022-11-21 23:24 | NUR ---
RN NOTE PT REQUESTS FOR SLEEPING PILL. PT ADMINISTERED ZOLPIDEM 5 MG. BP 116/34, HR 69. WILL MONITOR FOR EFFECTIVENESS.
[2022-11-22] VITALS (27 sets, daily range): BP systolic 83–129; BP diastolic 24–62
[2022-11-22] MEDS: ALBUTEROL FS 2.5 MG/0.5 ML VIAL.NEB NEB SCH ×4 (01:32→19:41)
[2022-11-22] MEDS: IPRATROPIUM NEB FS 0.5 MG/2.5 ML AMPUL.NEB NEB SCH ×4 (01:32→19:42)
[2022-11-22] MEDS: methylPREDNISolone SOD SUCC 125 MG/2ML VIAL IV SCH ×2 (04:03→12:14)
--- NOTE | 2022-11-22 04:36 | NUR ---
RN NOTE WITH BIPAP ON, PT'S BP NOTED TO BE 86/32, HR 61. PT CONTINUES TO BE ALERT WITH NO CHANGES TO NEURO STATUS. WILL CONTINUE TO MONITOR BP AND ASSESS FOR NEED TO RE-INITIATE LEVO.
[2022-11-22] MEDS: PIPERACILLIN /TAZOBACTAM 2.25 G in IV D5W 50 ML IV SCH ×3 (05:00→17:08)
[2022-11-22] MEDS: BLOOD SUGAR DIAGNOSTIC 1 EACH STRIP IN SCH ×4 (05:12→23:38)
[2022-11-22] MEDS: INSULIN REGULAR, HUMAN 100 UNIT/ML 3 ML VIAL SQ PRN ×4 (05:13→23:39)
[2022-11-22 05:27] LABS: CARBON DIOXIDE 22 mmol/L (21-32); CHLORIDE 102 mmol/L (98-107); CREATININE 3.7 mg/dL (0.6-1.3); GLUCOSE 312 mg/dL (74-106); PHOSPHORUS 5.7 mg/dL (2.5-4.9); POTASSIUM 3.1 mmol/L (3.5-5.1); SODIUM SERUM 137 mmol/L (136-145)
[2022-11-22 05:30] LABS: BASOPHILS % (AUTO) 0.2 % (0.0-2.0); HEMATOCRIT 22 % (39-51); LYMPHOCYTES # (AUTO) 0.1 K/uL (0.8-4.8); LYMPHOCYTES % (AUTO) 0.7 % (20.0-44.0); MEAN CORPUSCULAR HGB CONC 31 g/dl (31.0-36.0); MEAN CORPUSCULAR VOLUME 96 fL (80-96); MONOCYTES # (AUTO) 0.3 K/uL (0.1-1.30); MONOCYTES % (AUTO) 1.6 % (2.0-12.0); NEUTROPHILS # (AUTO) 15.7 K/uL (1.8-8.9); NEUTROPHILS % (AUTO) 97.5 % (43.0-81.0); PLATELET COUNT (AUTO) 219 K/uL (150-450); RED BLOOD CELL COUNT(AUTO) 2.25 MIL/uL (4.5-6.0); WHITE BLOOD COUNT (AUTO) 16.1 K/uL (4.3-11.0)
[2022-11-22 05:34] LABS: HEMOGLOBIN 6.8 g/dL (13.5-17.5); UREA NITROGEN, BLOOD 121 mg/dL (7-18)
--- NOTE | 2022-11-22 05:37 | NUR ---
RN NOTE RECEIVED CRITICAL FROM LAB; HGB/HCT 6.8/, TRENDING DOWN FROM 7.2/. MARIANA GOTTLIEB NOTIFIED; NO SIGNS OF BLEEDING AND IS A HD PT. ORDERED 1 UNIT PRBC WITH HD. ORDER CARRIED OUT.
--- NOTE | 2022-11-22 06:40 | NUR ---
HANDKERCHIEF SAMPLE CLERK CLOSING NOTE PT REMAINS IN BED, ASLEEP; NO CHANGES TO NEURO STATUS, REMAINS ALERT AND ABLE TO MAKE NEEDS KNOWN. CONTINUES TO BE ON BIPAP WITH SAME SETTINGS; TOLERATED WELL WITH O2SAT RANGING FROM 99%-100%; PT WITH PRODUCTIVE COUGH, ABLE TO SUCTION SELF INDEPENDENTLY. ATTACHED TO BEDSIDE MONITOR, SR WITH HR RANGING FROM 61-80. BP MAINTAINED DURING THE NIGHT. LEFT NARE NGT RUNNING AT 30 ML/HR; TOLERATED WELL, NO RESIDUALS OVERNIGHT. NS TKO INFUSING ON NASEEM MIDLINE. ALL DUE MEDS ADMINISTERED DURING THE NIGHT. BED IN LOWEST POSITION, CALL LIGHT WITHIN REACH, SIDE RAILS UP X3. WILL ENDORSE TO DAYSHIFT NURSE TO CONTINUE CARE.
--- NOTE | 2022-11-22 07:38 | NUR ---
ICU/RN PT RECEIVED IN BED, RESTING, EYES CLOSED. PT ON BIPAP 15/5, RATE 18 FIO2 35% O2 SAT 100% ON BEDSIDE MONITOR. NGT IN PLACE LEFT NARE 65 CM AT THE TIP OF THE NOSE RUNNING NEPRO AT 30 MLS/HR. LEFT UA AND RIGHT UA MIDLINE IN PLACE RUNNING NS TKO. RIGHT SUBCLAVIAN HD CATH IN PLACE. HD SCHEDULED FOR TODAY WITH 1UNIT PRBC ORDERED FOR HEMOGLOBIN 6.8. PT ABLE TO VERBALIZE NEEDS. BED LOCKED AND IN LOWEST POSITION, CALL LIGHT WITHIN REACH, 3 SIDE RAILS UP.
--- NOTE | 2022-11-22 07:40 | NUR ---
ICU/RN PT PLACED ON 1L O2 NC BY RT. O2 SAT 100% ON BEDSIDE MONITOR.
[2022-11-22] MEDS: SUCRALFATE 1 G/10 ML UDC NG SCH ×4 (08:04→21:05)
[2022-11-22] MEDS: ASPIRIN 81 MG TAB.CHEW NG SCH (08:04)
[2022-11-22] MEDS: PANTOPRAZOLE 40 MG/PACK PACK NG SCH ×2 (08:04→16:49)
[2022-11-22] MEDS: LEVOTHYROXINE SODIUM 75 MCG TABLET GT SCH (08:04)
[2022-11-22] MEDS: FERROUS SULFATE UDC 300 MG/5 ML UDC GT SCH ×2 (08:04→16:49)
[2022-11-22] MEDS: FOLIC ACID 1 MG TABLET NG SCH ×2 (08:04→16:49)
[2022-11-22] MEDS: CYANOCOBALAMIN 500 MCG TABLET GT SCH (08:05)
[2022-11-22] MEDS: METOPROLOL SUCCINATE 50 MG TAB.SR.24H PO SCH (08:05)
[2022-11-22] MEDS: FUROSEMIDE 40 MG TABLET NG SCH (08:05)
[2022-11-22] MEDS: ALLOPURINOL 100 MG TABLET GT SCH ×2 (08:05→16:49)
[2022-11-22] MEDS: INSULIN GLARGINE, 100 UNIT/ML CARTRIDGE SQ SCH ×2 (08:06→21:24)
[2022-11-22] MEDS: THERAHONEY GEL 1.5 OZ TUBE TP SCH (08:07)
[2022-11-22] MEDS: CIPROFLOXACIN HCL 0.3% 5 ML BOTTLE EACHEYE SCH ×4 (08:08→21:07)
[2022-11-22] MEDS: Z GUARD REMEDY 4 OZ OINT TP SCH (08:08)
[2022-11-22] MEDS: PROSOURCE / PROSTAT (PYXIS) 30 ML UDC NG SCH ×3 (08:12→16:49)
--- NOTE | 2022-11-22 08:50 | NUR ---
ICU/RN HD INITIATED, BP STABLE AT THIS TIME.
[2022-11-22] MEDS: ALBUMIN 25% 25 GM in PREMIX 1 EA IV PRN (10:23)
--- NOTE | 2022-11-22 10:30 | NUR ---
ICU/RN PT GIVEN ALBUMIN FOR LOWERING BP DURING HD.
[2022-11-22 12:21] LABS: ABG BASE EXCESS -4.2 mmol/L; ABG OXYGEN SATURATION 92.8 % (92.0-98.5); ABG PCO2 47.1 mmHg (35.0-45.0); ABG PO2 69.5 mmHg (75.0-100.0); AaDO2 31.1 mmHg; COHb 0.5 % (0.5-1.5); MetHb 0.2 % (0.0-1.5); O2Hb 92.2 % (94.0-97.0); SITE, ABG Left Brachial; VENT MODE, BG NASAL CANNULA
[2022-11-22] MEDS ORDERED: methylPREDNISolone SOD SUCC 125 MG/2ML VIAL IV SCH (13:00)
[2022-11-22] MEDS: CITRIC ACID/SODIUM CITRATE (BICITRA)15 ML UDC PO SCH ×3 (13:05→21:05)
--- NOTE | 2022-11-22 13:08 | NUR ---
ICU/RN PER DR. PAUL, PT TO BE PLACED BACK ON BIPAP FOR 2HR
[2022-11-22] MEDS: EPOETIN ALFA-EPBX 4,000 UNIT/ML VIAL IV SCH (14:04)
--- NOTE | 2022-11-22 14:30 | NUR ---
RT NOTE: PATIENT TAKEN OFF BIPAP AFTER 2 HOURS ON PER . PLACED ON 0.5 LPM VIA NASAL CANNULA. TOLERATING WELL. WILL CONTINUE TO MONITOR.
[2022-11-22] MEDS: IV NS 0.9% 250 ML IV PRN (14:43)
[2022-11-22] MEDS: FLUCONAZOLE IN NS 200 MG in PREMIX 1 EA IV SCH ×2 (15:31)
[2022-11-22] MEDS: NEPRO 1,000 ML BOTTLE GT PRN (17:27)
--- NOTE | 2022-11-22 19:30 | NUR ---
PT IN BED, AWAKE WITH FAMILY AT BEDSIDE. A/OX4. ABLE TO MAKE NEEDS KNOWN. ON O2 VIA NC AT 1LPM. TOLERATING WELL WITH O2SAT RANGING FROM 97%-100%; PT WITH PRODUCTIVE COUGH, ABLE TO SUCTION SELF INDEPENDENTLY. ATTACHED TO BEDSIDE MONITOR, SR WITH HR RANGING FROM 78-91. LEFT NARE NGT INFUSING NEPRO AT 30 ML/HR; TOLERATING WELL, NO RESIDUALS. PT IS ANURIC. RT SUBCLAVIAN HD CATH IN PLACE. IV ACCESS ON FATEMEH ML AND NASEEM ML. NS TKO INFUSING ON NASEEM MIDLINE. SAFETY MEASURES IN PLACE. HOB ELEVATED. BED IN LOWEST POSITION, CALL LIGHT WITHIN REACH, SIDE RAILS UP X3. WILL CONTINUE PLAN OF CARE.
--- NOTE | 2022-11-22 19:45 | NUR ---
RT AT BEDSIDE, O2 SAT AT 97%. OFFERED TO PLACE PT ON BIPAP. PT REFUSED, REQUESTED FOR RT TO COME BACK AT [address] BIPAP ON.
--- NOTE | 2022-11-22 19:45 | NUR ---
PT REQUESTED TO PLACE THE NOC BIPAP @22:00. RN JAMAR AWARE. NO RESPIRATORY DISTRESS NOTED .SPO2 100%
[2022-11-22 20:55] LABS: LYMPHOCYTES % (MANUAL) 2 % (16-48); MONOCYTES % (MANUAL) 2 % (0-11.0); NEUTROPHILS % (MANUAL) 96 (42-76)
--- NOTE | 2022-11-22 21:00 | NUR ---
RCVD PT ON 1L NC AND PLACED PT ON NOC BIPAP 15/5, RATE 18, FIO2 30%. NO RESPIRATORY DISTRESS NOTED. WILL CONTINUE TO MONITOR T/O SHIFT.
[2022-11-22] MEDS: ZOLPIDEM TARTRATE 5 MG TABLET NG PRN (21:06)
[2022-11-22] MEDS: MIDODRINE HCL (5MG) 5 MG TABLET GT PRN (21:06)
[2022-11-22] MEDS: ATORVASTATIN 40 MG TABLET GT SCH (21:06)
[2022-11-23] VITALS (24 sets, daily range): BP systolic 95–143; BP diastolic 23–72
[2022-11-23] MEDS: IV NS 0.9% 250 ML IV PRN (00:21)
[2022-11-23] MEDS: ALBUTEROL FS 2.5 MG/0.5 ML VIAL.NEB NEB SCH ×4 (01:24→19:38)
[2022-11-23] MEDS: IPRATROPIUM NEB FS 0.5 MG/2.5 ML AMPUL.NEB NEB SCH ×4 (01:24→19:38)
[2022-11-23] MEDS: BLOOD SUGAR DIAGNOSTIC 1 EACH STRIP IN SCH ×3 (05:11→18:09)
[2022-11-23] MEDS: PIPERACILLIN /TAZOBACTAM 2.25 G in IV D5W 50 ML IV SCH ×5 (05:11→18:09)
[2022-11-23] MEDS: INSULIN REGULAR, HUMAN 100 UNIT/ML 3 ML VIAL SQ PRN ×3 (05:22→18:16)
[2022-11-23 05:38] LABS: LYMPHOCYTES # (AUTO) 0.2 K/uL (0.8-4.8); LYMPHOCYTES % (AUTO) 1.1 % (20.0-44.0); MEAN CORPUSCULAR HGB CONC 32 g/dl (31.0-36.0); MEAN CORPUSCULAR VOLUME 96 fL (80-96); MONOCYTES # (AUTO) 0.5 K/uL (0.1-1.30); MONOCYTES % (AUTO) 3.9 % (2.0-12.0); NEUTROPHILS # (AUTO) 13.1 K/uL (1.8-8.9); PLATELET COUNT (AUTO) 209 K/uL (150-450); RED BLOOD CELL COUNT(AUTO) 2.04 MIL/uL (4.5-6.0); WHITE BLOOD COUNT (AUTO) 13.8 K/uL (4.3-11.0)
[2022-11-23 05:46] LABS: HEMATOCRIT 20 % (39-51)
[2022-11-23 05:47] LABS: HEMOGLOBIN 6.3 g/dL (13.5-17.5)
[2022-11-23 05:52] LABS: CALCIUM, SERUM 9.1 mg/dL (8.5-10.1); CARBON DIOXIDE 24 mmol/L (21-32); CHLORIDE 103 mmol/L (98-107); CREATININE 3.1 mg/dL (0.6-1.3); GLUCOSE 347 mg/dL (74-106); POTASSIUM 2.9 mmol/L (3.5-5.1); SODIUM SERUM 139 mmol/L (136-145)
[2022-11-23 05:54] LABS: UREA NITROGEN, BLOOD 101 mg/dL (7-18)
--- NOTE | 2022-11-23 05:59 | NUR ---
Hgb 6.3, Hct 20. notified. 2 unit prbc has been previously ordered. Pt is positive for antibodies. [facility] 2 to 3 [facility].
--- NOTE | 2022-11-23 06:00 | NUR ---
OFF NOC BIPAP PER PT REQUEST. PLACED ON 3L AMALIA, JW ROLDAN AWARE.
--- NOTE | 2022-11-23 06:35 | NUR ---
PT IN BED, AWAKE. A/OX4. ABLE TO MAKE NEEDS KNOWN. ON O2 VIA NC AT 3LPM. TOLERATING WELL WITH O2SAT RANGING FROM 97%-100%; PT WITH PRODUCTIVE COUGH, ABLE TO SUCTION SELF INDEPENDENTLY. ATTACHED TO BEDSIDE MONITOR, SR WITH HR RANGING FROM 70-91. LEFT NARE NGT INFUSING NEPRO AT 30 ML/HR; TOLERATING WELL, NO RESIDUALS. PT IS ANURIC. RT SUBCLAVIAN HD CATH IN PLACE. IV ACCESS ON FATEMEH ML AND NASEEM ML. NS TKO INFUSING ON NASEEM MIDLINE. DUE MEDS AND PRN MEDS GIVEN NEEDED AND ORDERED. NEEDS ATTENED. SAFETY MEASURES MAINTAINED. HOB ELEVATED. BED IN LOWEST POSITION, CALL LIGHT WITHIN REACH, SIDE RAILS UP X3. WILL ENDORSE TO NEXT NURSE ON DUTY FOR CONTINUITY OF CARE.
--- NOTE | 2022-11-23 07:18 | NUR ---
ICU/RN PT RECEIVED IN BED, RESTING, EYES CLOSED. PT ON 3L O2 NC, O2 SAT 99% ON BEDSIDE MONITOR. NGT IN PLACE LEFT NARE 65 CM AT THE TIP OF THE NOSE RUNNING NEPRO AT 30 MLS/HR. LEFT UA AND RIGHT UA MIDLINE IN PLACE RUNNING NS TKO. RIGHT SUBCLAVIAN HD CATH IN PLACE. 2 UNITS PRBC ORDERED, [facility]ENDING FROM [facility]. PT ABLE TO VERBALIZE NEEDS. BED LOCKED AND IN LOWEST POSITION, CALL LIGHT WITHIN REACH, 3 SIDE RAILS UP.
--- NOTE | 2022-11-23 08:10 | NUR ---
ICU/RN NGT PUSHED TO 68CM AT THE TIP OF THE NOSE PER RADIOLOGIST RECOMMENDATION.
[2022-11-23] MEDS: FERROUS SULFATE UDC 300 MG/5 ML UDC GT SCH ×2 (08:18→16:31)
[2022-11-23] MEDS: ASPIRIN 81 MG TAB.CHEW NG SCH (08:18)
[2022-11-23] MEDS: PANTOPRAZOLE 40 MG/PACK PACK NG SCH ×2 (08:18→16:31)
[2022-11-23] MEDS: SUCRALFATE 1 G/10 ML UDC NG SCH ×4 (08:18→21:30)
[2022-11-23] MEDS: FUROSEMIDE 40 MG TABLET NG SCH (08:18)
[2022-11-23] MEDS: PROSOURCE / PROSTAT (PYXIS) 30 ML UDC NG SCH ×3 (08:18→16:31)
[2022-11-23] MEDS: methylPREDNISolone SOD SUCC 125 MG/2ML VIAL IV SCH ×2 (08:18→16:31)
[2022-11-23] MEDS: CITRIC ACID/SODIUM CITRATE (BICITRA)15 ML UDC PO SCH ×4 (08:18→21:30)
[2022-11-23] MEDS: ALLOPURINOL 100 MG TABLET GT SCH ×2 (08:19→16:31)
[2022-11-23] MEDS: FOLIC ACID 1 MG TABLET NG SCH ×2 (08:19→16:31)
[2022-11-23] MEDS: CYANOCOBALAMIN 500 MCG TABLET GT SCH (08:19)
[2022-11-23] MEDS: LEVOTHYROXINE SODIUM 75 MCG TABLET GT SCH (08:19)
[2022-11-23] MEDS: INSULIN GLARGINE, 100 UNIT/ML CARTRIDGE SQ SCH ×2 (08:22→21:43)
[2022-11-23] MEDS: METOPROLOL SUCCINATE 50 MG TAB.SR.24H PO SCH (08:23)
--- NOTE | 2022-11-23 08:25 | NUR ---
ICU/RN PT SCHEDULED FOR HD TODAY. BP MEDICATION HELD.
[2022-11-23] MEDS: CIPROFLOXACIN HCL 0.3% 5 ML BOTTLE EACHEYE SCH ×4 (08:32→21:47)
[2022-11-23] MEDS: Z GUARD REMEDY 4 OZ OINT TP SCH (08:32)
[2022-11-23] MEDS: THERAHONEY GEL 1.5 OZ TUBE TP SCH (08:32)
--- NOTE | 2022-11-23 12:01 | NUR ---
ICU/RN ONGOING HD. WILL HOLD IV ABX UNTIL HD IS COMPLETED.
[2022-11-23] MEDS: ALBUMIN 25% 25 GM in PREMIX 1 EA IV PRN (12:55)
--- NOTE | 2022-11-23 15:00 | NUR ---
ICU/RN PT PLACED BACK ON BIPAP BY RT. PT DESATING TO LOW 80S, UNABLE TO CATCH HIS BREATH. O2 SAT 93% WITH BIPAP AT THIS TIME
[2022-11-23] MEDS: VANCOMYCIN 500 MG in IV D5W 100 ML IV PRN (15:23)
[2022-11-23] MEDS: FLUCONAZOLE IN NS 200 MG in PREMIX 1 EA IV SCH ×2 (16:22)
--- NOTE | 2022-11-23 19:05 | NUR ---
RN OPENING NOTES PATIENT RECEIVED IN BED, AWAKE, A/O X 4. PT ON BIPAP WITH SETTING OF 15/5, RATE 18, 35% FIO2, SATING AT 92%. NO SOB NOTED, NO S/S DISTRESS, AFEBRILE, DENIES ANY PAIN. NOTED WITH NASEEM AND FATEMEH MIDLINE, FLUSHED WITH NS, NO S/S OF INFILTRATION NOTED. LEFT NARE AT 68 CM, VERIFIED PLACEMENT BY AUSCULTATION, NO RESIDUAL NOTED UPON ASPITATION RUNNING WITH NEPRO AT 30 ML/HR, HEAD OF BED KEPT ELEVATED. ALL SAFETTY PRECAUTION PROVIDED. BED IN LOWEST POSITION, LOCKED. CALL LIGHT WITHIN REACH, SIDE RAILS UP X3. WILL CONTINUE TO MONITOR.
[2022-11-23] MEDS: NEPRO 1,000 ML BOTTLE GT PRN (19:32)
--- NOTE | 2022-11-23 20:45 | NUR ---
RN NOTES BLOOD BANK CALLED SPOKE TO JEN, PER JEN, THERE IS NO BLOOD COMPATIBLE WITH THE PATIENT, [facility] RECOMMEND TO GIVE THE LEAST REACTIVE BLOOD TYPE, AND THE PATHOLOGIST RECOMMEND TO GIVE BENADRYL BEFORE TRANSFUSION. WILL NOTIFY FIRST.
[2022-11-23] MEDS: ATORVASTATIN 40 MG TABLET GT SCH (21:30)
[2022-11-23 22:07] LABS: LYMPHOCYTES % (MANUAL) 4 % (16-48); MONOCYTES % (MANUAL) 3 % (0-11.0); NEUTROPHILS % (MANUAL) 93 (42-76)
--- NOTE | 2022-11-23 22:50 | NUR ---
RN NOTES DR. PATRICK NOTIFIED REGARDING PATIENT BLOOD TRANSFUSION, THERE IS NO BLOOD COMPATIBLE WITH THE PATIENT, [facility] RECOMMEND TO GIVE THE LEAST REACTIVE BLOOD TYPE, AND THE PATHOLOGIST RECOMMEND TO GIVE BENADRYL BEFORE TRANSFUSION. AND ALSO ABOUT BLOOD WARMER, NO TUBING AVAILABLE AT THIS MOMENT. PER DR PATRICK, WAIT UNTIL WE GOT A COMPATIBLE BLOOD FOR THE PATIENT, FOLLOW UP TOMORROW IF [facility] FIND COMPATIBLE BLOOD. DO NOT TRANSFUSE BLOOD WITHOUT BLOOD WARMER, BECAUSE IT WILL DESTROY THE BLOOD AND THE PATIENT BLOOD ITSELF.
--- NOTE | 2022-11-23 23:00 | NUR ---
RN NOTES NOTIFIED BLOOD BANK, SPOKE TO [facility] REGARDING PRBC, DR. PATRICK WANTS THE BLOOD TO BE COMPATIBLE, AND FOLLOW UP WITH [facility] IF THEY GONNA HAVE IT TOMORROW.
[2022-11-24] VITALS (26 sets, daily range): BP systolic 98–156; BP diastolic 22–54
[2022-11-24] MEDS: BLOOD SUGAR DIAGNOSTIC 1 EACH STRIP IN SCH ×4 (00:15→18:28)
[2022-11-24] MEDS: PIPERACILLIN /TAZOBACTAM 2.25 G in IV D5W 50 ML IV SCH ×2 (00:16→06:29)
[2022-11-24] MEDS: INSULIN REGULAR, HUMAN 100 UNIT/ML 3 ML VIAL SQ PRN ×5 (00:19→20:46)
[2022-11-24] MEDS: IPRATROPIUM NEB FS 0.5 MG/2.5 ML AMPUL.NEB NEB SCH ×4 (02:08→19:59)
[2022-11-24] MEDS: ALBUTEROL FS 2.5 MG/0.5 ML VIAL.NEB NEB SCH ×4 (02:08→19:59)
[2022-11-24] MEDS: IV NS 0.9% 250 ML IV PRN (03:12)
--- NOTE | 2022-11-24 07:34 | NUR ---
NURSE DISCHARGE PLANNER NOTE Patient GCS E4V5M6, bilateral pupils 3mm PEARLLA. On BiPAP, Spo2 100% with Fio2 0.35. case monitor showed SR HR 84/min. MAP>65mmHg. On tube feeding with Nepro at 30mL/hr, running via NGT, auscultated the presence of tubing and gastric residual of 3mL only. Right UA and left UA midlines are in-situ and working well, right subclavian HD line is dry and intact. Patient requested removing BIPAP. Removed at 07:20 with oral care provided. 2L oxygen given via NC. No respiratory noted so far and no increase in HR as well. Will keep observation and monitoring.
[2022-11-24] MEDS: PANTOPRAZOLE 40 MG/PACK PACK NG SCH ×2 (07:58→16:02)
[2022-11-24] MEDS: SUCRALFATE 1 G/10 ML UDC NG SCH ×4 (07:58→21:18)
--- NOTE | 2022-11-24 08:15 | NUR ---
STEAM TABLE WORKER NOTE - oxygen titration Milling Supervisor DR. Young came and assessed patient and agreed with the plan for taking VBG 4 hours after turning off BIPAP. Titrate oxygen to keep SpO2 >92%. Tried RA and patient desaturated to 88%, gave 1L oxygen back and Spo2 increased back to >95%. Keep observation.
[2022-11-24] MEDS: METOPROLOL SUCCINATE 50 MG TAB.SR.24H PO SCH (09:00)
[2022-11-24] MEDS: CIPROFLOXACIN HCL 0.3% 5 ML BOTTLE EACHEYE SCH ×4 (09:13→20:42)
[2022-11-24] MEDS: ASPIRIN 81 MG TAB.CHEW NG SCH (09:13)
[2022-11-24] MEDS: CITRIC ACID/SODIUM CITRATE (BICITRA)15 ML UDC PO SCH ×4 (09:13→20:42)
[2022-11-24] MEDS: LEVOTHYROXINE SODIUM 75 MCG TABLET GT SCH (09:13)
[2022-11-24] MEDS: FERROUS SULFATE UDC 300 MG/5 ML UDC GT SCH ×2 (09:13→17:03)
[2022-11-24] MEDS: FUROSEMIDE 40 MG TABLET NG SCH (09:13)
[2022-11-24] MEDS: ALLOPURINOL 100 MG TABLET GT SCH ×2 (09:14→17:04)
[2022-11-24] MEDS: methylPREDNISolone SOD SUCC 125 MG/2ML VIAL IV SCH ×2 (09:14→17:04)
[2022-11-24] MEDS: CYANOCOBALAMIN 500 MCG TABLET GT SCH (09:14)
[2022-11-24] MEDS: PROSOURCE / PROSTAT (PYXIS) 30 ML UDC NG SCH ×3 (09:14→17:04)
[2022-11-24] MEDS: FOLIC ACID 1 MG TABLET NG SCH ×2 (09:14→17:03)
[2022-11-24] MEDS: Z GUARD REMEDY 4 OZ OINT TP SCH (09:15)
[2022-11-24] MEDS: THERAHONEY GEL 1.5 OZ TUBE TP SCH (09:15)
[2022-11-24] MEDS: INSULIN GLARGINE, 100 UNIT/ML CARTRIDGE SQ SCH ×2 (09:21→21:17)
[2022-11-24 09:30] LABS: ABG BASE EXCESS -3.4 mmol/L; ABG OXYGEN SATURATION 39.8 % (92.0-98.5); ABG PCO2 59.6 mmHg (35.0-45.0); ABG PH 7.225 (7.350-7.450); ABG PO2 23.8 mmHg (75.0-100.0); COHb 0.5 % (0.5-1.5); MetHb 0.3 % (0.0-1.5); O2Hb 39.5 % (94.0-97.0); SITE, ABG A-Line; VENT MODE, BG 1L NC
--- NOTE | 2022-11-24 10:30 | NUR ---
MEDICAL PRACTICE ADMINISTRATOR NOTE - putting on BiPAP Noted HR increased to 100/min and patient desaturated to 88% with 2L oxygen. Put patient back on BiPAP. Total Bipap free time is 3 hours.
--- NOTE | 2022-11-24 14:19 | NUR ---
SLAG MOTOR OPERATOR NOTE - blood product Got a call from quality assurance technician Kasey about the blood product. She said that they were only able to get two least reactive blood product for patient as he produced a lot of auto-antibodies. Should we need another two units ,they would have to go through the whole process again and [facility] would also no agree to give them the units of blood. She also reminded us that the TSI would on 11/24/[address] Serrano about the details of the above discussion. After discussing with patient's daughter Italia, he said to proceed with blood transfusion with tylenol administered 1 hour before the transfusion and IV 25mg benadryl adminsitered just prior the transfusion.
[2022-11-24] MEDS ORDERED: diphenhydrAMINE HCL 50 MG/ML VIAL IV ONE ×2 (15:00→21:00)
[2022-11-24] MEDS: ACETAMINOPHEN 650 MG/20.3 ML UDC GT PRN ×2 (15:12→21:17)
--- NOTE | 2022-11-24 15:12 | NUR ---
ADMITTED ATTORNEYS Note - off bipap Put patient off BiPAP, given 2L of oxygen via NC. lunchroom monitor showed HR 90/min, Spo2 100%. Would monitor.
[2022-11-24] MEDS: FLUCONAZOLE IN NS 200 MG in PREMIX 1 EA IV SCH ×2 (16:03)
--- NOTE | 2022-11-24 16:27 | NUR ---
BIT SHAVER NOTE Blood transfusion started at 16:15. Tylenol was administered at 15:12, benadryl was administered just prior the blood transfusion. Blood is warmed via fluid warmer. Would transfuse the blood over four hours. Keep observation.
[2022-11-24] MEDS: NEPRO 1,000 ML BOTTLE GT PRN (18:52)
--- NOTE | 2022-11-24 19:27 | NUR ---
SPACE OPERATIONS NOTE - blood transfusion Blood transfusion ended at 19:00, no reaction was noted. Keep observation.
--- NOTE | 2022-11-24 19:43 | NUR ---
FLEET MAINTENANCE MANAGER. INITIAL ASSESSMENT. RECEIVED THE PT REST IN BED. PT IS VERY LETHARGIC, OXYGEN 5 L VIA NASAL CANNULA. SAT 96%. NO ACUTE DISTRESS NOTED. STONE CIRCULAR SAWYER SHOWING NSR. IV LT UPPER ARM MID LINE. TKO RUNNING. NGT INTACT. NEPRO 30 ML/H. NGT FEEDING TOLERATED WELL. HOB ELEVATED. AFEBRILE. WILL CONTINUE TO MONITOR VITALS.
--- NOTE | 2022-11-24 21:15 | NUR ---
RACECAR DRIVER. PRBC STARTED. BEFORE START THE BLOOD BENADRYL AND TYLENOL GIVEN PER ORDER.
[2022-11-24] MEDS: ATORVASTATIN 40 MG TABLET GT SCH (21:42)
--- NOTE | 2022-11-24 22:00 | NUR ---
DEVELOPMENT ENG. PT REFUSED BIPAP. PT STATED, I AM GOING TO . NOTIFIED DAUGHTER, SHE SAID WHAT CAN I DO.
--- NOTE | 2022-11-24 22:30 | NUR ---
CUT OFF SAW TENDER METAL. PT BIPAP REFUSEAL NOTIFIED MD PATRICK. DOCTOR STATED PT NEED BIPAP. DOCTOR WANTS TO TALK TO THE PT. PT REFUSED TO TALK TO THE DOCTOR.
--- NOTE | 2022-11-24 23:15 | NUR ---
PROPERTY MANAGEMENT ASSISTANT. ONE MORE TIME I EXPLAINED BENEFITS OF THE BIPAP. PT AGREED I PLACED THE BIPAP AT 2315.
--- NOTE | 2022-11-24 23:50 | NUR ---
BREAKER UP. INSULIN LANTUS UNABLE TO SCAN. MANUAL BAR CODE USED. MECHANICAL DETAILER WITNESSED.
[2022-11-25] VITALS (22 sets, daily range): BP systolic 89–146; BP diastolic 24–67
--- NOTE | 2022-11-25 01:00 | NUR ---
landscape horticulture instructor. blood finished at 0100. during transfusion no complication noted.
[2022-11-25] MEDS: IPRATROPIUM NEB FS 0.5 MG/2.5 ML AMPUL.NEB NEB SCH ×3 (01:27→14:20)
[2022-11-25] MEDS: ALBUTEROL FS 2.5 MG/0.5 ML VIAL.NEB NEB SCH ×3 (01:27→14:20)
[2022-11-25] MEDS: BLOOD SUGAR DIAGNOSTIC 1 EACH STRIP IN SCH ×3 (01:33→11:50)
--- NOTE | 2022-11-25 04:25 | NUR ---
LEGAL SUPPORT ASSISTANT. ,AM CARE GIVEN. REMAINING SAME BIPAP SETTINGS TOLERATED WELL. SAQT 98%. NO ACUTE DISTRESS NOTED. TECHNICAL SPECIALIST CYTOGENETICS SHOWING NSR. IV RT AND LT UPPER ARM MID LOINE. TKO RUNNING. HOB ELEVATED. NGT FEEDING TOLERATED WELL. TURN AND REPOSITION Q2H. WILL CONTINUE TO MONITOR VITALS.
[2022-11-25 05:07] LABS: BASOPHILS % (AUTO) 0.1 % (0.0-2.0); HEMATOCRIT 27 % (39-51); HEMOGLOBIN 8.4 g/dL (13.5-17.5); LYMPHOCYTES # (AUTO) 0.2 K/uL (0.8-4.8); LYMPHOCYTES % (AUTO) 1.1 % (20.0-44.0); MEAN CORPUSCULAR HGB CONC 31 g/dl (31.0-36.0); MEAN CORPUSCULAR VOLUME 90 fL (80-96); MONOCYTES # (AUTO) 0.3 K/uL (0.1-1.30); MONOCYTES % (AUTO) 1.7 % (2.0-12.0); NEUTROPHILS # (AUTO) 17.5 K/uL (1.8-8.9); NEUTROPHILS % (AUTO) 97.1 % (43.0-81.0); PLATELET COUNT (AUTO) 142 K/uL (150-450); RED BLOOD CELL COUNT(AUTO) 3.02 MIL/uL (4.5-6.0); WHITE BLOOD COUNT (AUTO) 18.1 K/uL (4.3-11.0)
[2022-11-25 05:30] LABS: CALCIUM, SERUM 9.4 mg/dL (8.5-10.1); CARBON DIOXIDE 25 mmol/L (21-32); CHLORIDE 105 mmol/L (98-107); CREATININE 3.6 mg/dL (0.6-1.3); GLUCOSE 230 mg/dL (74-106); PHOSPHORUS 3.5 mg/dL (2.5-4.9); SODIUM SERUM 143 mmol/L (136-145)
[2022-11-25] MEDS: INSULIN REGULAR, HUMAN 100 UNIT/ML 3 ML VIAL SQ PRN (05:30)
[2022-11-25 05:32] LABS: POTASSIUM 2.8 mmol/L (3.5-5.1); UREA NITROGEN, BLOOD 148 mg/dL (7-18)
[2022-11-25] MEDS ORDERED: POTASSIUM CHLORIDE 20 MEQ TAB.PRT.SR PO ONE (07:00)
[2022-11-25 07:15] LABS: BAND % (MANUAL) 4 % (0.0-5.0); LYMPHOCYTES % (MANUAL) 2 % (16-48); MONOCYTES % (MANUAL) 1 % (0-11.0); NEUTROPHILS % (MANUAL) 93 (42-76)
--- NOTE | 2022-11-25 07:19 | NUR ---
ARCHITECTURAL EXAMINER NOTE Patient GCS E3V5M6, bilateral pupils 3mm PEARLA. Patient appeared lethargic. On BiPAP, Spo2 100% with Fio2 0.35. music industry intern showed SR HR 76/min. MAP>65mmHg. On tube feeding with Nepro at 30mL/hr, running via NGT, auscultated the presence of tubing and gastric residual of 20 mL. Right UA and left UA midlines are in-situ and working well, right subclavian HD line is dry and intact.
[2022-11-25] MEDS: PANTOPRAZOLE 40 MG/PACK PACK NG SCH ×2 (08:10→16:30)
[2022-11-25] MEDS: SUCRALFATE 1 G/10 ML UDC NG SCH ×2 (08:10→11:49)
--- NOTE | 2022-11-25 08:11 | NUR ---
PLACED INTO NASAL CANNULA @ 2 LPM O2 FLOW. BIPAP ON STAND BY @ BEDSIDE. SPO2 100% RR 17 BPM HR 80 BPM Addendum: 11/25/22 at 0812 by AFSHAN SANTANA RT Amended: Links added.
[2022-11-25] MEDS: FUROSEMIDE 40 MG TABLET NG SCH (09:00)
[2022-11-25] MEDS: METOPROLOL SUCCINATE 50 MG TAB.SR.24H PO SCH (09:00)
[2022-11-25] MEDS: CIPROFLOXACIN HCL 0.3% 5 ML BOTTLE EACHEYE SCH ×2 (09:00→11:50)
[2022-11-25] MEDS: FERROUS SULFATE UDC 300 MG/5 ML UDC GT SCH (09:07)
[2022-11-25] MEDS: CITRIC ACID/SODIUM CITRATE (BICITRA)15 ML UDC PO SCH ×2 (09:07→13:47)
[2022-11-25] MEDS: LEVOTHYROXINE SODIUM 75 MCG TABLET GT SCH (09:08)
[2022-11-25] MEDS: ASPIRIN 81 MG TAB.CHEW NG SCH (09:08)
[2022-11-25] MEDS: FOLIC ACID 1 MG TABLET NG SCH (09:08)
[2022-11-25] MEDS: ALLOPURINOL 100 MG TABLET GT SCH (09:08)
[2022-11-25] MEDS: CYANOCOBALAMIN 500 MCG TABLET GT SCH (09:08)
[2022-11-25] MEDS: methylPREDNISolone SOD SUCC 125 MG/2ML VIAL IV SCH (09:08)
[2022-11-25] MEDS: PROSOURCE / PROSTAT (PYXIS) 30 ML UDC NG SCH ×2 (09:09→13:47)
[2022-11-25] MEDS: THERAHONEY GEL 1.5 OZ TUBE TP SCH (09:10)
[2022-11-25] MEDS: Z GUARD REMEDY 4 OZ OINT TP SCH (09:10)
[2022-11-25] MEDS: INSULIN GLARGINE, 100 UNIT/ML CARTRIDGE SQ SCH (09:16)
[2022-11-25] MEDS ORDERED: MORPHINE SULFATE INJ 2 MG/ML DISP.SYRIN IV PRN (10:30)
--- NOTE | 2022-11-25 11:47 | NUR ---
DESIGN TECH NOTE - Refusal of BiPAP use Patient refused putting on BiPAP, doctor is informed. RT is made aware.
--- NOTE | 2022-11-25 12:06 | NUR ---
pt. is awake and alert refused to placed back into bipap. rn and pt. daughter aware @ bedside Addendum: 11/25/22 at 1208 by AFSHAN SANTANA RT Amended: Links added.
--- NOTE | 2022-11-25 14:53 | NUR ---
MEDICAL ORDERLY Note - Comfort measures Dr. Serrano had a discussion with patient's children about the direction of medical care. The consensus of comfort measures are made. Await family's response upon when to initiate the morphine drip.
[2022-11-25] MEDS: EPOETIN ALFA-EPBX 4,000 UNIT/ML VIAL IV SCH (15:00)
--- NOTE | 2022-11-25 15:23 | NUR ---
PARIMUTUEL TICKET CASHIER note As patient is for comfort measures, epoetin will not be administered.
[2022-11-25] MEDS ORDERED: MORPHINE SULFATE 8 MG/ML VIAL IV ONE (15:30)
[2022-11-25] MEDS ORDERED: SCOPOLAMINE PATCH 1 MG/72HR TD SCH (15:30)
[2022-11-25] MEDS ORDERED: LORAZEPAM INJ 2 MG/ML VIAL IV PRN ×2 (15:30)
[2022-11-25] MEDS ORDERED: MORPHINE SULFATE PF DRIP 250 MG in IV D5W 240 ML IV PRN (15:30)
[2022-11-25] MEDS: FLUCONAZOLE IN NS 200 MG in PREMIX 1 EA IV SCH ×2 (16:00)
--- NOTE | 2022-11-25 16:50 | NUR ---
DOT NET DEVELOPER NOTe Morphine started at 2mg/hr for comfort measures. Stat dose of 4mg IV morphine and 1mg IV ativan was adminsitered.
[2022-11-25] MEDS ORDERED: MORPHINE SULFATE INJ 4 MG/ML DISP.SYRIN IV ONE (17:00)
[2022-11-25] MEDS ORDERED: LORAZEPAM INJ 2 MG/ML VIAL IV ONE (17:00)
--- NOTE | 2022-11-25 19:00 | NUR ---
STAFF NURSE ICU RESOURCE TEAM Note Noted that patient's breathing was labored, increased the morphine from 2 to 4mg/hr, and then to 6mg/hr at 18:45. For transfer to [facility]. Handover was given to JW Badillo.
--- NOTE | 2022-11-25 19:20 | NUR ---
Received patient from icu department via bed accompanied by 4 family members and primary nurse, on morphine drip infusing at this time at 6mg/hr, patient calm, no sob/acute distress noted, no facial grimacing or s/s of pain or discomfort at this time, HD catheter in place, and right and left upper midlines in place patent and intact, on comfort measures at this time, family will stay overnight, will continue to monitor closely, hr 80s at this time and bp in 90sat this time, at 2lpm via NC with optimal o2 sat level.
[2022-11-25] MEDS ORDERED: KEY,NONCONTROL,TO KEEP IN PYXI 1 EA MC ONE (19:41)
--- NOTE | 2022-11-25 23:51 | NUR ---
PATIENT CONTINUE ON 2LPM VIA NC WITH 100%, HR STABLE IN LOW 80S, NO SOB/ACUTE DISTRESS, NO FACIAL GRIMACING OR INDICATION OF PAIN OR DISCOMFORT,RR 15, VERY CALM, NON VERBAL, FAMILY AT BEDSIDE, NO INDICATION FOR INCREASING MORPHINE AT TIS TIME,WILL ,
[2022-11-26] VITALS: BP 92/25
--- NOTE | 2022-11-26 06:10 | NUR ---
END OF SHIFT, PATIENT CONTINUE ON 2LPM VIA NC WIT O2 >98%, NO SOB/ACUTE DISTRESS , VERY PEACEFUL, NO S/S OF ANY FACIAL GRIMACING OR ANY PAIN OR DISCOMFORT, CONTINUE ON MORPHINE DRIP AT 6MG/HR, STABLE IN 70S, NO RESPIRATORY DISTRESS, FAMILY AT BEDSIDE, WILL ENDORSE CONTINUITY OF CARE TO ONCOMING NURSE.
--- NOTE | 2022-11-26 07:00 | NUR ---
RN OPENING NOTE PATIENT IN BED RESTING WITH FAMILY AT BED SIDE. PATIENT ON 2 L NC SATURATING 97%, WITHOUT ANY S/S OF DISTRESS, OR SOB. PATIENT IS IN COMFORT MEASURES ONLY ON 6MG/HR MORPHINE. STABLE HR 67. WILL CONTINUE THE CARE THROUGHOUT THE SHIFT.
[2022-11-26 08:00] VITALS: BP 77/39
[2022-11-26 12:00] VITALS: BP 63/23
[2022-11-26] MEDS ORDERED: KEY,NONCONTROL,TO KEEP IN PYXI 1 EA MC ONE ×6 (12:37→21:12)
--- NOTE | 2022-11-26 18:15 | NUR ---
MORPHINE WASTE RECEIVED A 100 ML MORPHINE DRIP FROM PHARMACY AROUND 1630, THE THEY CALLED AND ASKED TO HAND THE NEW MORPHINE BAG AND WASTE THE OLD DRIP. PHARMACY STATED THAT MORPHINE BAG MUST BE CHANGED EVERY 24 HRS, SO I SCANNED AND HANGED THE NEW BAG 100 ML MORPHINE BAG AND TOOK THE REST IN THE IV BAG TO THE PHARMACY, BUT FORGOT TO MEASURE THE WASTE; PHARMACY MEASURED IT AND CONFIRM IT WITH ME OVER THE PHONE THAT THE WASTE AMOUNT IS 125 ML, I REPLIED WHATEVER YOU MEASURE IT IS CORRECT BECAUSE I TOOK THE BAG THEY WAY THAT I REMOVED IT FROM THE PUMP AND TOOK IT TO THE PHARMACY WITH MY ORIENTED GREY GOODS EXAMINER. I ALSO JANE THE PINK PAPER AND MONIQUE THE CHARGE NURSE SIGNED IT A WITNESS, SO THE WASTE AND THE PINK PAPER GIVEN TO THE PHARMACY AT 1800.
--- NOTE | 2022-11-26 19:13 | NUR ---
RN CLOSING NOTE PATIENT IN BED RESTING WITH FAMILY AT BED SIDE. PATIENT ON 2 L NC SATURATING 100, WITHOUT ANY S/S OF DISTRESS, OR SOB. PATIENT IS IN COMFORT MEASURES ONLY ON 6MG/HR MORPHINE. HEART RATE 47, LAST BP AT 1200 WAS 63/23. PATIENT'S FAMILY REFUSED THE POSITION CHANGE AND THE 4 PM VITALS SIGN. WILL INDORSE THE PATIENT TO THE SNORKELLING INSTRUCTOR NURSE FOR PANDA.
--- NOTE | 2022-11-26 19:15 | NUR ---
RIDES ATTENDANT open notes PATIENT IN BED RESTING FAMILY AT BED SIDE. PATIENT ON 2 L NC SATURATING 97%, WITHOUT ANY S/S OF DISTRESS, OR PAIN. PATIENT IS ON COMFORT MEASURES WITH 6MG/HR MORPHINE. STABLE HR 67. WILL CONTINUE TO MONITOR.
--- NOTE | 2022-11-27 06:39 | NUR ---
WAFER SLICER closing note PT resting in bed eyes closed, on comfort measures, family at bedside, o2 at 2L via NC, no s/s of SOB, HR in the 40s on morphine dripp infusing at 6mg/ hr, o s/s of pain or discomfort noted, will continue to monitor
[2022-11-27] MEDS ORDERED: KEY,NONCONTROL,TO KEEP IN PYXI 1 EA MC ONE ×3 (06:45→10:39)
--- NOTE | 2022-11-27 07:28 | NUR ---
RN OPEN NOTE PATIENT IN BED ALERT , ORIENTED TIMES 1 , RESTING WITH FAMILY AT BED SIDE. PATIENT ON 2 L NC SATURATING 98, WITHOUT ANY S/S OF DISTRESS, OR SOB. PATIENT IS IN COMFORT MEASURES ONLY ON 6MG/HR MORPHINE. HEART RATE 47, PATIENT IS NPO.WILL CONTINUE TO PROVIDE COMFORT CARE
--- NOTE | 2022-11-27 10:32 | NUR ---
RN NOTE PATIENR STARTING TO MOANING AND GRIMACING , FAMILY AT THE BED SIDE ASKING TO INCREASE THE MORPHINE DOSE
--- NOTE | 2022-11-27 10:35 | NUR ---
RN NOTE WILL INCREASE THE PORPHINE DOSE TO 8 MG/HR
--- NOTE | 2022-11-27 10:42 | NUR ---
PATIENT . FAMILY AT THE BED SIDE
--- NOTE | 2022-11-27 11:15 | NUR ---
RN NOTE REPORT WAS GIVEN TO THE [facility]GACY , SPOKE TO THE REYNALDO , REF # [id number], OK TO RELEASE
== END 2022-11-27 14:36 | DRG 207 ==
LOC: ER 19:40 → TELE 22:56 → ICU 11-07 17:43 → MEDSG1 11-25 17:07
PROVIDERS: ADMIT Internal Medicine; ATTEND Internal Medicine
PROC: 5A1D70Z Performance of Urinary Filtration, Intermittent, Less than 6 Hours Per Day (ICD-10-PCS; principal; 2022-11-07)
PROC: 05HC33Z Insertion of Infusion Device into Left Basilic Vein, Percutaneous Approach (ICD-10-PCS; 2022-11-07)
PROC: 5A1955Z Respiratory Ventilation, Greater than 96 Consecutive Hours (ICD-10-PCS; 2022-11-07)
PROC: 0BH18EZ Insertion of Endotracheal Airway into Trachea, Via Natural or Artificial Opening Endoscopic (ICD-10-PCS; 2022-11-07)
PROC: 5A09357 Assistance with Respiratory Ventilation, Less than 24 Consecutive Hours, Continuous Positive Airway Pressure (ICD-10-PCS; 2022-11-07)
PROC: 05HC33Z Insertion of Infusion Device into Left Basilic Vein, Percutaneous Approach (ICD-10-PCS; 2022-11-07)
PROC: 30233N1 Transfusion of Nonautologous Red Blood Cells into Peripheral Vein, Percutaneous Approach (ICD-10-PCS; 2022-11-08)
PROC: 05HB33Z Insertion of Infusion Device into Right Basilic Vein, Percutaneous Approach (ICD-10-PCS; 2022-11-09)
PROC: 5A1955Z Respiratory Ventilation, Greater than 96 Consecutive Hours (ICD-10-PCS; 2022-11-14)
PROC: 0BH17EZ Insertion of Endotracheal Airway into Trachea, Via Natural or Artificial Opening (ICD-10-PCS; 2022-11-14)
PROC: 5A09557 Assistance with Respiratory Ventilation, Greater than 96 Consecutive Hours, Continuous Positive Airway Pressure (ICD-10-PCS; 2022-11-20)
DX: J69.0 Pneumonitis due to inhalation of food and vomit (principal); B37.1 Pulmonary candidiasis; L89.153 Pressure ulcer of sacral region, stage 3; I50.33 Acute on chronic diastolic (congestive) heart failure; N18.6 End stage renal disease; J96.22 Acute and chronic respiratory failure with hypercapnia; J96.21 Acute and chronic respiratory failure with hypoxia; G93.41 Metabolic encephalopathy; I13.2 Hypertensive heart and chronic kidney disease with heart failure and with stage 5 chronic kidney disease, or end stage renal disease; J44.0 Chronic obstructive pulmonary disease with (acute) lower respiratory infection; E87.4 Mixed disorder of acid-base balance; J98.11 Atelectasis; J90 Pleural effusion, not elsewhere classified; N17.9 Acute kidney failure, unspecified; E27.40 Unspecified adrenocortical insufficiency; E87.20 Acidosis, unspecified; G72.81 Critical illness myopathy; J84.9 Interstitial pulmonary disease, unspecified; E11.22 Type 2 diabetes mellitus with diabetic chronic kidney disease; Z20.822 Contact with and (suspected) exposure to COVID-19; E78.00 Pure hypercholesterolemia, unspecified; K21.9 Gastro-esophageal reflux disease without esophagitis; I25.10 Atherosclerotic heart disease of native coronary artery without angina pectoris; E11.65 Type 2 diabetes mellitus with hyperglycemia; Z95.1 Presence of aortocoronary bypass graft; Z99.2 Dependence on renal dialysis; Z51.5 Encounter for palliative care; Z66 Do not resuscitate; M10.9 Gout, unspecified; M89.8X9 Other specified disorders of bone, unspecified site; Z85.01 Personal history of malignant neoplasm of esophagus; Z88.0 Allergy status to penicillin; Z91.048 Other nonmedicinal substance allergy status; Z79.4 Long term (current) use of insulin; Z79.82 Long term (current) use of aspirin; Z79.899 Other long term (current) drug therapy; J84.10 Pulmonary fibrosis, unspecified; Z79.51 Long term (current) use of inhaled steroids; E03.9 Hypothyroidism, unspecified; D63.8 Anemia in other chronic diseases classified elsewhere; Z80.3 Family history of malignant neoplasm of breast; D50.0 Iron deficiency anemia secondary to blood loss (chronic); Z83.3 Family history of diabetes mellitus; Z92.21 Personal history of antineoplastic chemotherapy; Z87.891 Personal history of nicotine dependence; Z87.11 Personal history of peptic ulcer disease; F09 Unspecified mental disorder due to known physiological condition; I95.9 Hypotension, unspecified; Z98.890 Other specified postprocedural states; Z92.3 Personal history of irradiation; L89.156 Pressure-induced deep tissue damage of sacral region; Z86.2 Personal history of diseases of the blood and blood-forming organs and certain disorders involving the immune mechanism
CPT/HCPCS: 31720; 36410; 36415; 36600; 71045-TC; 80048-TC; 80076-TC; 80202-TC; 82247-TC; 82248-TC; 82533; 82803-TC; 82962-TC; 83605-TC; 83735-TC; 83880; 84100-TC; 84134-TC; 84484-TC; 85025-TC; 86706; 86850; 86850-TC; 86870; 86880; 86885; 86900; 86901; 87040-TC; 87081-TC; 87340; 90935-TC; 92526; 92611-TC; 93970-TC; 94002-TC; 94003-TC; 94799-TC; A4216; A4217; A4223; A6253; A6403; C9803; G0378; J0330; J0885; J1200; J1450; J1644; J1815; J1940; J2060; J2270; J2274; J2543; J2704; J2916; J2930; J3370; J3480; J3490; J7030; J7042; J7050; J7060; P9016; P9047; Q0163